=== PATIENT | male | born 1940 | race Caucasian/White ===

== ENCOUNTER → 2016-08-13 | Outpatient (CLI) | payer OTHER ==
[~2016-08-13] MED LIST: ACET-1256 PO; ASPEC81 PO; CLOP1TAB54 PO; CLX20 PO; FRS/40 PO; ISOS60TA2 PO; METO-551 PO; NTRGSL/4 SL; POTA-327 PO; ROSU20TA PO
[2016-08-13 17:24] LABS: HEMATOCRIT 47.2 % (42-52); MEAN CELL VOLUME 97.1 fL (80-100); MEAN CORPUSCULAR HEMOGLOBIN 32.9 pg (25-34); MEAN CORPUSCULAR HGB CONC 33.9 g/dl (32-36); MEAN PLATELET VOLUME 12.9 fL (7.4-10.4); PLATELET COUNT 144 K/uL (130-400); RED BLOOD COUNT 4.86 M/uL (4.7-6.1); WHITE BLOOD COUNT 9.91 K/uL (4.8-10.8)
[2016-08-13 17:43] LABS: ALT/SGPT 14 U/L (12-78); AST/SGOT 16 U/L (15-37); BLOOD UREA NITROGEN 22 mg/dl (7-18); BUN/CREATININE RATIO 14.5 (10-20); CALCIUM 9.9 mg/dl (8.5-10.1); CARBON DIOXIDE 28 mmol/L (21-32); CHLORIDE 103 mmol/L (98-107); GLUCOSE 104 mg/dl (70-99); POTASSIUM 3.9 mmol/L (3.5-5.1); SODIUM 139 mmol/L (136-145)
[2016-08-13 17:46] LABS: ALB/GLOB RATIO 0.8 (0.9-2); ALKALINE PHOSPHATASE 103 U/L (45-117); CHOLESTEROL 132 mg/dl (0-200); CHOLESTEROL/HDL RATIO 3.9; HDL CHOLESTEROL 34 mg/dl; LDL CHOLESTEROL CALCULATED 65 mg/dl; TRIGLYCERIDES 167 mg/dl (0-150); VERY LOW DENSITY LIPOPROT CALC 33 mg/dl
== END | disposition home or self-care (01) ==
LOC: C.LABBFT 12:37
PROVIDERS: ATTEND Internal Medicine
DX: E78.5 Hyperlipidemia, unspecified (principal)

== ENCOUNTER → 2017-02-19 | Outpatient (CLI) | payer OTHER ==
[2017-02-19 17:44] LABS: HEMATOCRIT 49.1 % (42-52); MEAN CORPUSCULAR HEMOGLOBIN 32.3 pg (25-34); MEAN CORPUSCULAR HGB CONC 32.6 g/dl (32-36); MEAN PLATELET VOLUME 12.9 fL (7.4-10.4); PLATELET COUNT 143 K/uL (130-400); RED BLOOD COUNT 4.96 M/uL (4.7-6.1); WHITE BLOOD COUNT 10.33 K/uL (4.8-10.8)
[2017-02-19 17:55] LABS: ALT/SGPT 18 U/L (12-78); BLOOD UREA NITROGEN 23 mg/dl (7-18); BUN/CREATININE RATIO 14.5 (10-20); CALCIUM 10.5 mg/dl (8.5-10.1); CARBON DIOXIDE 34 mmol/L (21-32); CHLORIDE 102 mmol/L (98-107); CHOLESTEROL 155 mg/dl (0-200); GLUCOSE 96 mg/dl (70-99); POTASSIUM 4.2 mmol/L (3.5-5.1); SODIUM 139 mmol/L (136-145); TRIGLYCERIDES 271 mg/dl (0-150); VERY LOW DENSITY LIPOPROT CALC 54 mg/dl
[2017-02-19 17:58] LABS: ALB/GLOB RATIO 0.9 (0.9-2); ALKALINE PHOSPHATASE 98 U/L (45-117); AST/SGOT 20 U/L (15-37); CHOLESTEROL/HDL RATIO 4.4; HDL CHOLESTEROL 35 mg/dl; LDL CHOLESTEROL CALCULATED 66 mg/dl
== END | disposition home or self-care (01) ==
LOC: C.LABBFT 13:38
PROVIDERS: ATTEND Internal Medicine
DX: I25.10 Atherosclerotic heart disease of native coronary artery without angina pectoris (principal)

== ENCOUNTER → 2017-03-23 | Outpatient (CLI) | payer OTHER ==
[2017-03-23 12:41] LABS: BLOOD UREA NITROGEN 23 mg/dl (7-18); BUN/CREATININE RATIO 15.6 (10-20); CALCIUM 10.4 mg/dl (8.5-10.1); CARBON DIOXIDE 30 mmol/L (21-32); CHLORIDE 103 mmol/L (98-107); GLUCOSE 96 mg/dl (70-99); POTASSIUM 3.7 mmol/L (3.5-5.1); SODIUM 138 mmol/L (136-145)
== END | disposition home or self-care (01) ==
LOC: C.LABBFT 10:14
PROVIDERS: ATTEND Internal Medicine
DX: N18.9 Chronic kidney disease, unspecified (principal)

== ENCOUNTER → 2017-09-02 | Outpatient (CLI) | payer OTHER ==
[2017-09-02 17:54] LABS: BASO % 0.6 %; BASO ABS # 0.06 K/uL (0-0.2); EOS % 3.8 %; HEMOGLOBIN 15.9 g/dL (14.0-18.0); IG# 0.03 K/uL (0.00-0.02); LYMPH % 20.5 %; LYMPH ABS # 2.13 K/uL (1.2-3.4); MEAN CELL VOLUME 98.8 fL (80-100); MEAN CORPUSCULAR HEMOGLOBIN 32.7 pg (25-34); MEAN CORPUSCULAR HGB CONC 33.1 g/dl (32-36); MEAN PLATELET VOLUME 12.5 fL (7.4-10.4); MONO % 10.6 %; NEUT % 64.2 %; NEUT ABS # 6.68 K/uL (1.4-6.5); PLATELET COUNT 167 K/uL (130-400); RED CELL DISTRIBUTION WIDTH CV 14.1 % (11.5-14.5); RED CELL DISTRIBUTION WIDTH SD 51.2 fL (36.4-46.3)
[2017-09-02 18:22] LABS: ALBUMIN 3.6 gm/dl (3.4-5.0); ALT/SGPT 18 U/L (12-78); AST/SGOT 18 U/L (15-37); BLOOD UREA NITROGEN 26 mg/dl (7-18); CALCIUM 10.6 mg/dl (8.5-10.1); CARBON DIOXIDE 28 mmol/L (21-32); CHOLESTEROL 159 mg/dl (0-200); CREATININE 1.52 mg/dl (0.60-1.40); GLUCOSE 99 mg/dl (70-99); POTASSIUM 4.7 mmol/L (3.5-5.1); SODIUM 135 mmol/L (136-145)
[2017-09-02 18:25] LABS: ALKALINE PHOSPHATASE 87 U/L (45-117); LDL CHOLESTEROL CALCULATED 76 mg/dl; TOTAL PROTEIN 7.7 gm/dl (6.4-8.2)
== END | disposition home or self-care (01) ==
LOC: C.LABBFT 13:31
PROVIDERS: ATTEND Internal Medicine
DX: I25.10 Atherosclerotic heart disease of native coronary artery without angina pectoris (principal)

== ENCOUNTER 2018-09-09 20:07 | Inpatient (IN) ==
[2018-09-09 20:52] LABS: Basophils # (auto) 0.05 K/uL (0-0.2); Basophils % (auto) 0.6 %; Eosinophils # (auto) 0.39 K/uL (0-0.5); Eosinophils % (auto) 4.4 %; Hematocrit (blood only) 44.4 % (42-52); Hemoglobin 14.8 g/dL (14.0-18.0); Immature Granulocytes # (auto) 0.02 K/uL (0.00-0.02); Immature Granulocytes % (auto) 0.2 %; Lymphocytes # (auto) 2.66 K/uL (1.2-3.4); Lymphocytes % (auto) 30.1 %; Mean Corpuscular Hgb Conc 33.3 g/dL (32-36); Mean Corpuscular Volume 98.2 fL (80-100); Mean Platelet Volume 11.4 fL (7.4-10.4); Monocytes # (auto) 0.65 K/uL (0.11-0.59); Monocytes % (auto) 7.4 %; Neutrophils # (auto) 5.06 K/uL (1.4-6.5); Neutrophils % (auto) 57.3 %; Platelet Count 142 K/uL (130-400); RDW Coefficient of Variation 15.1 % (11.5-14.5); RDW Standard Deviation 54.1 fL (36.4-46.3); Red Blood Count 4.52 M/uL (4.7-6.1); White Blood Count 8.83 K/uL (4.8-10.8)
[2018-09-09 20:57] LABS: Base Excess VBG 4.6 mEq/L; Oxygen Saturation VBG 64.8 %; pH VBG 7.4 (7.36-7.41)
[2018-09-09 21:03] LABS: INR 1.1 (0.9-1.1); Partial Thromboplastin Ratio 0.9; Partial Thromboplastin Time 24.8 Seconds (21.0-31.0); Prothrombin Time 10.8 Seconds (9.0-12.0)
[2018-09-09 21:08] LABS: Albumin Level 3.4 gm/dl (3.4-5.0); BUN Creatinine Ratio 18.2 (10-20); Blood Urea Nitrogen 32 mg/dl (7-18); Calcium 10.1 mg/dl (8.5-10.1); Carbon Dioxide 31 mmol/L (21-32); Chloride 105 mmol/L (98-107); Creatinine Clr Calc Pharmacy 38.2 ml/min; Est GFR (African American) 40.8; Est GFR (Non-African American) 35.2; Glucose 131 mg/dl (70-99); Magnesium 2.4 mg/dl (1.8-2.4); Potassium 4.1 mmol/L (3.5-5.1); Sodium 140 mmol/L (136-145)
[2018-09-09 21:11] LABS: Alanine Aminotransferase 18 U/L (12-78); Albumin Globulin Ratio 0.8 (0.9-2); Alkaline Phosphatase 86 U/L (45-117); Aspartate Aminotransferase 17 U/L (15-37); Bilirubin,Total 0.3 mg/dl (0.2-1); Globulin 4.1 gm/dl (2.5-4.0); Total Protein 7.5 gm/dl (6.4-8.2); Troponin I < 0.015 ng/ml (0-0.045)
--- NOTE | 2018-09-09 21:17 | CT Scan Report ---
CT SCAN OF THE BRAIN WITHOUT IV CONTRAST CLINICAL HISTORY: Strokelike symptoms. COMPARISON STUDY: CT of the brain dated 06/16/2018. TECHNIQUE: Unenhanced axial CT scan of the brain is performed from the vertex to the skull base. A do se lowering technique was utilized adhering to the principles of ALARA. CT DOSE: 537.48 mGy.cm FINDINGS: Brain parenchyma: There are age-related involutional changes noting advanced confluent subcortical a nd periventricular microangiopathic change. Chronic lacunar infarcts identified in the left caudate h ead and the right thalamus. There is no hemorrhage, mass effect, or evidence of acute territorial isc hemia by CT criteria. Ellison-white matter differentiation is preserved. No extra-axial fluid collection is seen. Ventricles, sulci, cisterns: Prominent secondary to involutional change. Intracranial vasculature: There is atherosclerotic calcification of the cavernous carotid and vertebr al arteries. Calvarium: The skeletal structures are osteopenic. No depressed coronal fracture is seen. Postoperati ve change is noted involving the facial bones. Sinuses and mastoids: The visualized paranasal sinuses are clear. The mastoid air cells are well pneu matized. Orbits: Chronic posttraumatic deformity and postoperative changes noted involving the right orbit. Th e bony orbits are otherwise grossly intact. IMPRESSION: Senescent changes as above with no hemorrhage, mass effect, or evidence of acute territor ial ischemia by CT criteria. Electronically signed by: Anjum Junior M.D. 09/09/2018 9:15 PM
--- NOTE | 2018-09-09 21:50 | XRay Report ---
SINGLE VIEW CHEST CLINICAL HISTORY: Transient ischemic attack. FINDINGS: An AP, portable, upright chest radiograph is compared to study dated 06/16/2018. Correlatio n is made with chest CT dated 05/19/2006. The examination is degraded by portable technique and patie nt rotation. A 3-lead cardiac pacemaker is unchanged in position and partially obscures the left mid chest. The patient is status post midline sternotomy. The heart is enlarged and there is atherosclero tic calcification of the thoracic aorta. The pulmonary vasculature is noncongested. Chronic interstit ial thickening is similar to previous. No airspace consolidation or large pleural effusion is identif ied. Bibasilar atelectasis is noted. No pneumothorax is seen. The skeletal structures are osteopenic. The bony thorax is grossly intact. A surgical clip is noted in the left neck. IMPRESSION: 1. Cardiomegaly and cardiac pacemaker. There is no radiographic evidence of congestive failure. 2. No airspace consolidation or pleural effusion is identified. Electronically signed by: Anjum Junior M.D. 09/09/2018 9:48 PM
[2018-09-09 22:14] LABS: Appearance Urine Clear (Clear); Bilirubin Urine Negative (Negative); Blood Urine Negative (Negative); Color Urine Yellow; Glucose Urine UA Negative (Negative); Ketones Urine Negative (Negative); Leukocyte Esterase Urine Negative (Negative); Nitrite Urine Negative (Negative); Protein Urine Negative (Negative); Specific Gravity Urine 1.017 (1.000-1.030); Urobilinogen Urine Negative (Negative)
[2018-09-09] MEDS ORDERED: ASPIRIN CHEW 324 MG PO STA (22:24)
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
--- NOTE | 2018-09-10 00:28 | Emergency Department Note ---
Entered by Yany Mederos acting as a scribe for History of Present Illness General Chief complaint: Stroke/CVA Symptoms Stated complaint: LOSING BALANCE, SLURRED WORDS, VISION ISSUES Time Seen by Provider: 09/09/18 20:25 Source: patient and family Mode of arrival: ambulatory Limitations: no limitations History of Present Illness Provider complaint: stroke-like symptoms Onset (ago): hour(s) (3.5) Location: head Pain Consistency: + other (episode) Maximum Pain Intensity: 10 Current Pain Intensity: 3 Quality: + other (stroke-like) Associated symptoms: + weakness The patient is a 78 year old male who presents to the Emergency Room with complaints of stroke-like symptoms that began about 3.5 hours ago. The family reports that they had difficulty waking the patient up from a nap at 1700 today. They state that once he finally woke up, the patient was slurring his words and complaining of vision issues as well as shoulder pain. They note that upon getti ng up, the patient was weak and almost fell but were able to grab him and avoid a fall. The patient reports that he currently takes a daily aspirin but denies any other blood thinning medication. He admits to being an everyday smoker but denies any alcohol use. The patient states that he has had multiple surgeries including heart, gallbladder, thyroid, head and etc. The family notes that the patient was baseline before falling asleep, which was at 1500. They also report that the patient appears much improved. Home Medications Home Medications Medication Instructions Recorded Confirmed Type citalopram 20 mg PO DAILY #0 10/30/09 09/09/18 History furosemide 40 mg PO BID #0 10/30/09 09/09/18 History potassium chloride 10 meq PO DAILY #0 10/30/09 09/09/18 History aspirin [Aspirin Low Dose] 81 mg PO DAILY #0 12/26/09 09/09/18 History acetaminophen 500 mg PO Q4H PRN #0 tab 12/07/11 09/09/18 History clopidogrel 75 mg PO DAILY #0 tab 12/07/11 09/09/18 History metoprolol tartrate [Lopressor] 50 mg PO BID #0 tab 12/07/11 09/09/18 History nitroglycerin [Nitrostat] 0.4 mg SUBLINGUAL DIRECTED PRN 10/06/16 03/14/19 History #100 tab rosuvastatin 20 mg PO QPM 30 Days #0 tab 04/03/16 09/09/18 History ipratropium-albuterol 2 puff INHALATION QID 06/16/18 09/09/18 History ranolazine 500 mg PO Q12 06/16/18 09/09/18 History Allergies Allergy/AdvReac Type Severity Reaction Status Date / Time adhesive Allergy Unknown TAPE Verified 09/09/18 21:15 ranitidine Allergy Unknown Unknown Verified 09/09/18 21:15 Past Med/Surg History Medical History COPD (chronic obstructive pulmonary disease) Cardiac pacemaker Chronic diastolic CHF (congestive heart failure) Chronic ischemic heart disease Depression GERD (gastroesophageal reflux disease) HLD (hyperlipidemia) HTN (hypertension) Hip fracture PAD (peripheral artery disease) Tobacco abuse Surgical History History of cholecystectomy History of surgery of head History of thyroidectomy Hx of CABG Family History Other No pertinent family history in first degree relatives Social History Preferred Language: Amharic Visual Impairment: No Limitations Beliefs That Will Affect Care: None Current Living Situation: Spouse and Family Current Living Situation Comment: lives w/ dtr while waiting for apartment at assisted living facility Feels Safe at Home: Yes Smoking Status: Current every day smoker Hx Alcohol Use: No Hx Substance Use: No Review of Systems See HPI for pertinent positives & negatives. and A total of 10 systems reviewed and were otherwise negative Physical Exam Vital Signs Vital Signs - 24 hr 09/09/18 20:17 09/09/18 21:19 09/09/18 23:19 Temperature 36.7 C Temperature Source Oral Sepsis Recent Fever Within 48 Hours No Sepsis New/Unexplained Change in Mental Status No Sepsis Action Taken by Nursing No Action Required Pulse Rate 76 Pulse Rate [Finger] 72 60 Pulse Rhythm Regular Pulse Strength Normal Respiratory Rate 17 18 18 Respiratory Effort / Characteristics Non-Labored Spontaneous Respiratory Depth Normal Respiratory Pattern Regular Blood Pressure 103/68 Blood Pressure [Right Arm] 126/77 139/90 Blood Pressure Mean 79 Blood Pressure Mean [Right Arm] 93 106 Blood Pressure Position Sitting Pulse Oximetry 96 96 96 Oxygen Delivery Method Room Air Room Air Room Air GENERAL: He is oriented to person, place, and time. He appears well-developed and well-nourished. He does not appear distressed. HENT: Exam performed. Head: Normocephalic and atraumatic. Right Ear: External ear normal. No mastoid tenderness. Left Ear: External ear normal. No mastoid tenderness. Mouth/Throat: The oropharynx is clear and moist. No trismus in the jaw. No dental abscesses or uvula swelling. No oropharyngeal exudate or tonsillar abscesses. EYES: Conjunctivae and EOM are normal. Pupils are equal, round, and reactive to light. Right eye exhibits no discharge. Left eye exhibits no discharge. No scleral icterus. NECK: Normal range of motion. Neck supple. No JVD present. No spinous process tenderness present. No carotid bruit present. No rigidity. No tracheal deviation and normal range of motion present. No Brudzinski's sign and no Kernig's sign noted. CV: Normal rate, regular rhythm, normal heart sounds and intact distal pulses. There is no peripheral edema. Palpable radial pulses bue. PULM/CHEST: Effort normal and breath sounds normal. No respiratory distress. No stridor. He has no wheezes. He has no rales. Chest Wall: He exhibits no tenderness. ABD: The abdomen is soft. Bowel sounds are normal. He has no distension. No mass is present. There is no tenderness. There is no rebound, no guarding, no Burton's sign and no tenderness at McBurney's point. Rovsig negative MUSC/SKEL: Normal range of motion. There is no peripheral edema, tenderness or deformity. LYMPH: No cervical adenopathy. NEURO: He is alert and oriented to person, place, and time. He has normal strength. No cranial nerve deficit or sensory deficit. Coordination and gait normal. GCS eye subscore is 4. GCS verbal subscore is 5. GCS motor subscore is 6. cerbellar tests wnl. [place] Stroke skill is 0. SKIN: Skin is warm and dry. He is not diaphoretic. PSYCH: He has a normal mood and affect. His behavior is normal. Judgment and thought content normal. Course 2025: Past medical records reviewed. The patient was evaluated in room C12A, and a complete history and physical examination were performed. Patient was seen immediately. No code stroke was called as family reports symptoms are improving, patient is out of window for TPA, and that NIH stroke scale is 0 at this time. 2225: Vital signs stable. The patient's neuro exam remains stable and NIH stroke still 0. The patient's family reports that the patient seems a lot better than when he was brought to the hospital. It is thought that the patient suffered a TIA. Aspirin will be given. The patient will be admitted to hospital. Labs and imaging within normal limits.I reviewed the patient's case with Dr. Art - [facility] Hospitalist. She will evaluate the patient for further management. Administered Medications Discontinued Medications Aspirin (Aspirin) 324 mg PO NOW STA Stop: 09/09/18 22:25 Last Admin: 09/09/18 22:27 Dose: 324 mg Documented by: [id number] Medical Decision Making Medical Records Attestation: I reviewed the patient's medical records. Home Medications Current Medication List: was personally reviewed by me Laboratory Data Attestation: I reviewed the patient's lab results. Result diagrams: 09/09/18 20:38 09/09/18 20:38 Lab Results 09/09/18 09/09/18 09/09/18 Range/Units 20:37 20:38 20:38 WBC 8.83 (4.8-10.8) K/uL RBC 4.52 L (4.7-6.1) M/uL Hgb 14.8 (14.0-18.0) g/dL Hct 44.4 (42-52) % MCV 98.2 (80-100) fL MCH 32.7 (25-34) pg MCHC 33.3 (32-36) g/dL RDW Std Deviation 54.1 H (36.4-46.3) fL RDW Coeff of Sonia 15.1 H (11.5-14.5) % Plt Count 142 (130-400) K/uL MPV 11.4 H (7.4-10.4) fL Immature Gran % (Auto) 0.2 % Neut % (Auto) 57.3 % Lymph % (Auto) 30.1 % [place] % (Auto) 7.4 % Eos % (Auto) 4.4 % Baso % (Auto) 0.6 % Immature Gran # (Auto) 0.02 (0.00-0.02) K/uL Neut # (Auto) 5.06 (1.4-6.5) K/uL Lymph # (Auto) 2.66 (1.2-3.4) K/uL [place] # (Auto) 0.65 H (0.11-0.59) K/uL Eos # (Auto) 0.39 (0-0.5) K/uL Baso # (Auto) 0.05 (0-0.2) K/uL PT 10.8 (9.0-12.0) Seconds INR 1.1 (0.9-1.1) APTT 24.8 (21.0-31.0) Seconds PTT Ratio 0.9 VBG pH (7.36-7.41) VBG pCO2 (38-50) mmHg VBG pO2 mmHg VBG HCO3 mmol/L VBG O2 Saturation % VBG Base Excess mEq/L Barometric Pressure mm/Hg Sodium (136-145) mmol/L Potassium (3.5-5.1) mmol/L Chloride (98-107) mmol/L Carbon Dioxide (21-32) mmol/L Anion Gap (3-11) BUN (7-18) mg/dl Creatinine (0.6-1.4) mg/dl Est Cr Clr Drug Dosing ml/min Est GFR ( Amer) Est GFR (Non-Af Amer) BUN/Creatinine Ratio (10-20) Glucose (70-99) mg/dl POC Glucose 150 H (70-99) Calcium (8.5-10.1) mg/dl Magnesium (1.8-2.4) mg/dl Total Bilirubin (0.2-1) mg/dl AST (15-37) U/L ALT (12-78) U/L Alkaline Phosphatase (45-117) U/L Troponin I (0-0.045) ng/ml Total Protein (6.4-8.2) gm/dl Albumin (3.4-5.0) gm/dl Globulin (2.5-4.0) gm/dl Albumin/Globulin Ratio (0.9-2) Urine Color Urine Appearance (Clear) Urine pH (4.5-7.5) Ur Specific [place] (1.000-1.030) Urine Protein (Negative) Urine Glucose (UA) (Negative) Urine Ketones (Negative) Urine Blood (Negative) Urine Nitrite (Negative) Urine Bilirubin (Negative) Urine Urobilinogen (Negative) Ur Leukocyte Esterase (Negative) 09/09/18 09/09/18 09/09/18 Range/Units 20:38 20:43 21:30 WBC (4.8-10.8) K/uL RBC (4.7-6.1) M/uL Hgb (14.0-18.0) g/dL Hct (42-52) % MCV (80-100) fL MCH (25-34) pg MCHC (32-36) g/dL RDW Std Deviation (36.4-46.3) fL RDW Coeff of Sonia (11.5-14.5) % Plt Count (130-400) K/uL MPV (7.4-10.4) fL Immature Gran % (Auto) % Neut % (Auto) % Lymph % (Auto) % [place] % (Auto) % Eos % (Auto) % Baso % (Auto) % Immature Gran # (Auto) (0.00-0.02) K/uL Neut # (Auto) (1.4-6.5) K/uL Lymph # (Auto) (1.2-3.4) K/uL [place] # (Auto) (0.11-0.59) K/uL Eos # (Auto) (0-0.5) K/uL Baso # (Auto) (0-0.2) K/uL PT (9.0-12.0) Seconds INR (0.9-1.1) APTT (21.0-31.0) Seconds PTT Ratio VBG pH 7.40 (7.36-7.41) VBG pCO2 50 (38-50) mmHg VBG pO2 31 mmHg VBG HCO3 31 mmol/L VBG O2 Saturation 64.8 % VBG Base Excess 4.6 mEq/L Barometric Pressure 728.6 mm/Hg Sodium 140 (136-145) mmol/L Potassium 4.1 (3.5-5.1) mmol/L Chloride 105 (98-107) mmol/L Carbon Dioxide 31 (21-32) mmol/L Anion Gap 4.0 (3-11) BUN 32 H (7-18) mg/dl Creatinine 1.78 H (0.6-1.4) mg/dl Est Cr Clr Drug Dosing 38.2 ml/min Est GFR ( Amer) 40.8 Est GFR (Non-Af Amer) 35.2 BUN/Creatinine Ratio 18.2 (10-20) Glucose 131 H (70-99) mg/dl POC Glucose (70-99) Calcium 10.1 (8.5-10.1) mg/dl Magnesium 2.4 (1.8-2.4) mg/dl Total Bilirubin 0.3 (0.2-1) mg/dl AST 17 (15-37) U/L ALT 18 (12-78) U/L Alkaline Phosphatase 86 (45-117) U/L Troponin I < 0.015 (0-0.045) ng/ml Total Protein 7.5 (6.4-8.2) gm/dl Albumin 3.4 (3.4-5.0) gm/dl Globulin 4.1 H (2.5-4.0) gm/dl Albumin/Globulin Ratio 0.8 L (0.9-2) Urine Color Yellow Urine Appearance Clear (Clear) Urine pH 7.0 (4.5-7.5) Ur Specific [place] 1.017 (1.000-1.030) Urine Protein Negative (Negative) Urine Glucose (UA) Negative (Negative) Urine Ketones Negative (Negative) Urine Blood Negative (Negative) Urine Nitrite Negative (Negative) Urine Bilirubin Negative (Negative) Urine Urobilinogen Negative (Negative) Ur Leukocyte Esterase Negative (Negative) Imaging Data Radiologist's Impression: Radiology results as stated below per my review and the radiologist's interpretation: SINGLE VIEW CHEST CLINICAL HISTORY: Transient ischemic attack. FINDINGS: An AP, portable, upright chest radiograph is compared to study dated 06/16/2018. Correlation is made with chest CT dated 05/19/2006. The examination is degraded by portable technique and patient rotation. A 3-lead cardiac pacemaker is unchanged in position and partially obscures the left mid chest. The patient is status post midline sternotomy. The heart is enlarged and there is atherosclerotic calcification of the thoracic aorta. The pulmonary vasculature is noncongested. Chronic interstitial thickening is similar to previous. No airspace consolidation or large pleural effusion is identified. Bibasilar atelectasis is noted. No pneumothorax is seen. The skeletal structures are osteopenic. The bony thorax is grossly intact. A surgical clip is noted in the left neck. IMPRESSION: 1. Cardiomegaly and cardiac pacemaker. There is no radiographic evidence of congestive failure. 2. No airspace consolidation or pleural effusion is identified. Electronically signed by: Anjum Junior M.D. 09/09/2018 9:[address] SCAN OF THE BRAIN WITHOUT IV CONTRAST CLINICAL HISTORY: Strokelike symptoms. COMPARISON STUDY: CT of the brain dated 06/16/2018. TECHNIQUE: Unenhanced axial CT scan of the brain is performed from the vertex to the skull base. A dose lowering technique was utilized adhering to the principle s of ALARA. CT DOSE: 537.48 mGy.cm FINDINGS: Brain parenchyma: There are age-related involutional changes noting advanced confluent subcortical and periventricular microangiopathic change. Chronic lacunar infarcts identified in the left caudate head and the right thalamus. There is no hemorrhage, mass effect, or evidence of acute territorial ischemia by CT criteria. Ellison-white matter differentiation is preserved. No extra-axial fluid collection is seen. Ventricles, sulci, cisterns: Prominent secondary to involutional change. Intracranial vasculature: There is atherosclerotic calcification of the cavernous carotid and vertebral arteries. Calvarium: The skeletal structures are osteopenic. No depressed coronal fracture is seen. Postoperative change is noted involving the facial bones. Sinuses and mastoids: The visualized paranasal sinuses are clear. The mastoid air cells are well pneumatized. Orbits: Chronic posttraumatic deformity and postoperative changes noted involving the right orbit. The bony orbits are otherwise grossly intact. IMPRESSION: Senescent changes as above with no hemorrhage, mass effect, or evidence of acute territorial ischemia by CT criteria. Electronically signed by: Anjum Junior M.D. 09/09/2018 9:15 PM Blood Pressure Blood Pressure Findings: Normal blood pressure Blood Pressure Disposition: further management by hospitalist [facility] Narrative 2025: Past medical records reviewed. The patient was evaluated in room C12A, and a complete history and physical examination were performed. Patient was seen immediately. No code stroke was called as family reports symptoms are improving, patient is out of window for TPA, and that NIH stroke scale is 0 at this time. 2225: Vital signs stable. The patient's neuro exam remains stable and NIH stroke still 0. The patient's family reports that the patient seems a lot better than when he was brought to the hospital. It is thought that the patient suffered a TIA. Aspirin will be given. The patient will be admitted to hospital. Labs and imaging within normal limits.I reviewed the patient's case with Dr. Art - [facility] Hospitalist. She will evaluate the patient for further management. Impression & Plan TIA (transient ischemic attack) Discharge Plan Visit Data Chief Complaint: Stroke/CVA Symptoms Stated Complaint: LOSING BALANCE, SLURRED WORDS, VISION ISSUES ED Provider: Mookie Cobian Discharge Problem: TIA (transient ischemic attack) Patient Disposition: Being Evaluated by Hospitalist Forms Stand Alone Forms: [facility] Prescriptions Prescriptions: No Action potassium chloride 10 mEq Tablet Extended Release 10 meq PO DAILY Qty: 0 RF: 0 citalopram 20 mg Tablet 20 mg PO DAILY Qty: 0 RF: 0 furosemide 20 mg Tablet 40 mg PO BID Qty: 0 RF: 0 aspirin [Aspirin Low Dose] 81 mg Tablet,Delayed Release (Dr/Ec) 81 mg PO DAILY Qty: 0 RF: 0 clopidogrel 75 mg Tablet 75 mg PO DAILY Qty: 0 RF: 0 acetaminophen 500 mg Tablet 500 mg PO Q4H PRN (Reason: Pain) Qty: 0 RF: 0 metoprolol tartrate [Lopressor] 50 mg Tablet 50 mg PO BID Qty: 0 RF: 0 nitroglycerin [Nitrostat] 0.4 mg Tablet, Sublingual 0.4 mg Sublingual DIRECTED PRN (Reason: Chest Pain) Qty: 100 RF: 3 rosuvastatin 20 mg Tablet 20 mg PO QPM 30 Days Qty: 0 RF: 5 ranolazine 500 mg tablet extended release 12 hr 500 mg PO Q12 RF: 0 ipratropium-albuterol 20-100 mcg/actuation mist 2 puff Inhalation QID RF: 0 Referrals Referrals: Ernesto Page III, MD [Primary Care Provider] - The scribe's documentation has been prepared under my direction and personally reviewed by me in its entirety. I confirm that the note above accurately reflects all work, treatment, procedures, and medical decision making performed by me.
[2018-09-10] MEDS ORDERED: ACETAMINOPHEN 500 MG TAB PO PRN (01:07)
[2018-09-10 03:13] LABS: Phosphorus 2.3 mg/dl (2.5-4.9)
[2018-09-10 06:43] LABS: Basophils # (auto) 0.04 K/uL (0-0.2); Basophils % (auto) 0.4 %; Eosinophils # (auto) 0.43 K/uL (0-0.5); Eosinophils % (auto) 4.8 %; Hematocrit (blood only) 41.1 % (42-52); Hemoglobin 13.5 g/dL (14.0-18.0); Immature Granulocytes # (auto) 0.02 K/uL (0.00-0.02); Immature Granulocytes % (auto) 0.2 %; Lymphocytes # (auto) 2.87 K/uL (1.2-3.4); Lymphocytes % (auto) 32.1 %; Mean Corpuscular Hgb Conc 32.8 g/dL (32-36); Mean Corpuscular Volume 98.3 fL (80-100); Monocytes # (auto) 1.04 K/uL (0.11-0.59); Monocytes % (auto) 11.6 %; Neutrophils # (auto) 4.53 K/uL (1.4-6.5); Neutrophils % (auto) 50.9 %; Platelet Count 133 K/uL (130-400); RDW Coefficient of Variation 15.5 % (11.5-14.5); RDW Standard Deviation 55.7 fL (36.4-46.3); Red Blood Count 4.18 M/uL (4.7-6.1); White Blood Count 8.93 K/uL (4.8-10.8)
--- NOTE | 2018-09-10 06:51 | Ultrasound Report ---
CAROTID ARTERY ULTRASOUND CLINICAL HISTORY: TIA COMPARISON STUDY: Carotid ultrasound December 08, 2011. TECHNIQUE: Real-time, grayscale, and color Doppler sonography of the carotid and vertebral arteries w as performed. Images were viewed in the transverse and longitudinal planes. FINDINGS: There is moderate atherosclerotic plaque present within the bilateral common carotid carotid arteries , greater on the right. There is mild atherosclerotic plaque within the proximal bilateral internal c arotid arteries. Velocity measurements are listed below. COMMON CAROTID PEAK SYSTOLIC VELOCITY (CM/S): RIGHT 64 LEFT 67 ICA PEAK SYSTOLIC VELOCITY (CM/S): RIGHT 60 LEFT 68 Systolic ratios between the internal to common carotid arteries are normal. Antegrade flow is seen in the vertebral arteries. The external carotid arteries are patent. Blood pressure in the right arm measured 117/79. Blood pressure in the left arm measured 128/77. IMPRESSION: 1. No evidence of a hemodynamically significant stenosis. 2. Moderate atherosclerotic plaque within the bilateral common carotid arteries. Mild atherosclerotic plaque within the proximal bilateral internal carotid arteries. Electronically signed by: Roger Garcia M.D. 09/10/2018 6:50 AM
[2018-09-10 07:20] LABS: BUN Creatinine Ratio 20.7 (10-20); Calcium 9.6 mg/dl (8.5-10.1); Creatinine Clr Calc Pharmacy 41.8 ml/min; Est GFR (African American) 45.4; Est GFR (Non-African American) 39.2; Potassium 3.7 mmol/L (3.5-5.1)
[2018-09-10 08:14] LABS: Estimated Average Glucose 120 mg/dl; Hemoglobin A1C 5.8 % (4.5-5.6)
[2018-09-10] MEDS: IPRATROPIUM BROMIDE/ALBUTEROL respimat INH INH SCH ×4 (08:26→21:39)
[2018-09-10] MEDS: ASPIRIN 81 MG ECTAB PO SCH (08:26)
[2018-09-10] MEDS: METOPROLOL TARTRATE 50 MG TAB PO SCH ×2 (08:27→21:40)
[2018-09-10] MEDS: CITALOPRAM 20 MG TAB PO SCH (08:27)
[2018-09-10] MEDS: RANOLAZINE 500 MG ER TAB PO SCH ×2 (08:27→21:40)
[2018-09-10] MEDS: FUROSEMIDE 40 MG TAB PO SCH ×2 (08:27→17:14)
[2018-09-10] MEDS: CLOPIDOGREL BISULFATE 75 MG TAB PO SCH (08:27)
[2018-09-10] MEDS: POTASSIUM CHLORIDE 10 MEQ TABCR PO SCH (08:27)
[2018-09-10] MEDS ORDERED: OPTIRAY 320 125ml IV PRN (09:29)
--- NOTE | 2018-09-10 09:41 | CT Scan Report ---
CT angio head w con CLINICAL HISTORY: 78 years-old Male presenting with TIA. TECHNIQUE: Multidetector CT angiography of the head was performed after the administration of intrave nous contrast. 3-D volumetric and/or maximum intensity projection (MIP) images were subsequently el nstructed for review. IV contrast: 120 mL of Optiray 320. One or more dose lowering techniques were u sed consistent with the principles of ALARA (as low as reasonably achievable), including automatic ex posure control, mA or kV adjustment to individual patient size, and/or use of iterative reconstructio n. COMPARISON: Noncontrast CT head from 09/09/2018. CT DOSE (mGy.cm): The estimated cumulative dose is 126.38 mGy.cm. FINDINGS: French Folder topogram: The patient is edentulous. Left subclavian implanted cardiac device with multiple omaira ds. Anterior circulation: Atherosclerosis of the cavernous segments of the internal carotid arteries. Int racranial portions of the internal carotid arteries patent to the level of the termini. Anterior cere bral arteries patent. Middle cerebral arteries patent. Anterior communicating artery patent. Posterior circulation: Right dominant vertebral artery. Intradural portions of the vertebral arteries patent. Posterior inferior cerebellar arteries patent. Basilar artery patent. Anterior inferior cere bellar arteries poorly visualized. Superior cerebellar arteries patent. Posterior cerebral arteries p atent. Right posterior communicating artery patent. Left P-comm patent though hypoplastic. Dural venous sinuses: Patent. Other: Age-related volume loss and periventricular hypoattenuation likely indicative of chronic small vessel ischemic change. Plate and screw fixation hardware in the right periorbital, nasal, and bilat eral premaxillary regions. IMPRESSION: 1. No evidence of aneurysm, focal vessel occlusion, or significant stenosis of the intracranial jaquelin bere. Electronically signed by: Magnus Segovia M.D. 09/10/2018 9:40 AM
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
[2018-09-10] MEDS ORDERED: ROSUVASTATIN CALCIUM 20 MG TAB PO SCH (21:00)
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
[2018-09-11] MEDS: IPRATROPIUM BROMIDE/ALBUTEROL respimat INH INH SCH ×3 (08:25→17:35)
[2018-09-11] MEDS: CLOPIDOGREL BISULFATE 75 MG TAB PO SCH (08:25)
[2018-09-11] MEDS: CITALOPRAM 20 MG TAB PO SCH (08:25)
[2018-09-11] MEDS: FUROSEMIDE 40 MG TAB PO SCH ×2 (08:25→17:35)
[2018-09-11] MEDS: ASPIRIN 81 MG ECTAB PO SCH (08:26)
[2018-09-11] MEDS: RANOLAZINE 500 MG ER TAB PO SCH (08:26)
[2018-09-11] MEDS: METOPROLOL TARTRATE 50 MG TAB PO SCH (08:26)
[2018-09-11] MEDS: POTASSIUM CHLORIDE 10 MEQ TABCR PO SCH (08:26)
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
== END 2018-09-11 19:28 | disposition home or self-care (01) | DRG 69 ==
LOC: ED 20:07 → SUATTDRO 23:37 → 2W 23:37
DX: I11.0 Hypertensive heart disease with heart failure; K21.9 Gastro-esophageal reflux disease without esophagitis; F17.200 Nicotine dependence, unspecified, uncomplicated; Z79.02 Long term (current) use of antithrombotics/antiplatelets; Z95.1 Presence of aortocoronary bypass graft; T14.90XS Injury, unspecified, sequela; G45.9 Transient cerebral ischemic attack, unspecified; H49.21 Sixth [abducent] nerve palsy, right eye; I73.9 Peripheral vascular disease, unspecified; Z79.82 Long term (current) use of aspirin; I25.10 Atherosclerotic heart disease of native coronary artery without angina pectoris; E78.5 Hyperlipidemia, unspecified; R29.700 NIHSS score 0; Z66 Do not resuscitate; Z79.899 Other long term (current) drug therapy; R47.81 Slurred speech; V89.2XXS Person injured in unspecified motor-vehicle accident, traffic, sequela; Z91.048 Other nonmedicinal substance allergy status; J44.9 Chronic obstructive pulmonary disease, unspecified; R53.1 Weakness; Z88.8 Allergy status to other drugs, medicaments and biological substances; I50.32 Chronic diastolic (congestive) heart failure

== ENCOUNTER 2019-12-14 09:27 | Observation (INO) ==
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
[2019-12-14] MEDS ORDERED: SODIUM CHLORIDE 0.9% 1000ML 1,000 ML IV SCH (10:00)
--- NOTE | 2019-12-14 10:08 | CT Scan Report ---
CT head/brain wo con CT DOSE: 729.78 mGycm HISTORY: Mental status change Stroke evaluation TECHNIQUE: Multiaxial CT images of the head were performed without the use of intravenous contrast. A dose lowering technique was utilized adhering to the principles of ALARA. Comparison: 09/10/2018 Findings: The paranasal sinuses and mastoid air cells are clear. Postoperative changes involving the right orbit and nasal bone region. Findings consistent with age-related atrophy and considerable chronic small vessel change. No evidence for acute intracranial hemorrhage or midline shift. Impression: Chronic, postoperative, and age-related change. No acute intracranial abnormality. ACT 112: Negative or not required by law. The above report was generated using voice recognition software. It may contain grammatical, syntax or spelling errors. Electronically signed by: Calos Whyte M.D. 12/14/2019 10:07 AM
[2019-12-14 10:29] LABS: Basophils # (auto) 0.05 K/uL (0-0.2); Basophils % (auto) 0.5 %; Eosinophils # (auto) 0.27 K/uL (0-0.5); Eosinophils % (auto) 2.8 %; Hematocrit (blood only) 45.4 % (42-52); Hemoglobin 14.9 g/dL (14.0-18.0); Immature Granulocytes # (auto) 0.06 K/uL (0.00-0.02); Immature Granulocytes % (auto) 0.6 %; Lymphocytes # (auto) 1.96 K/uL (1.2-3.4); Mean Corpuscular Hemoglobin 33.2 pg (25-34); Mean Corpuscular Hgb Conc 32.8 g/dL (32-36); Mean Corpuscular Volume 101.1 fL (80-100); Mean Platelet Volume 12.3 fL (7.4-10.4); Monocytes # (auto) 0.73 K/uL (0.11-0.59); Monocytes % (auto) 7.4 %; Neutrophils # (auto) 6.74 K/uL (1.4-6.5); Neutrophils % (auto) 68.7 %; Platelet Count 137 K/uL (130-400); RDW Standard Deviation 54.8 fL (36.4-46.3); Red Blood Count 4.49 M/uL (4.7-6.1); White Blood Count 9.81 K/uL (4.8-10.8)
--- NOTE | 2019-12-14 10:42 | XRay Report ---
XR chest 1V portable CLINICAL HISTORY: cva mental status change COMPARISON STUDY: 09/09/2018 FINDINGS: Mild stable cardiomegaly. Lungs are clear. Minimal chronic interstitial change left base. Permanent bipolar cardiac pacemaker with leads in good position. IMPRESSION: No acute process. ACT 112: Negative or not required by law. The above report was generated using voice recognition software. It may contain grammatical, syntax or spelling errors. Electronically signed by: Calos Whyte M.D. 12/14/2019 10:40 AM
[2019-12-14 10:46] LABS: INR 1.1 (0.9-1.1); Partial Thromboplastin Time 26.6 Seconds (21.0-31.0); Prothrombin Time 11.2 Seconds (9.0-12.0)
[2019-12-14 10:47] LABS: Albumin Level 3.3 gm/dl (3.4-5.0); BUN Creatinine Ratio 11.7 (10-20); Calcium 10.9 mg/dl (8.5-10.1); Creatinine Clr Calc Pharmacy 34.1 ml/min; Est GFR (African American) 35.7; Est GFR (Non-African American) 30.8; Magnesium 2.5 mg/dl (1.8-2.4); Potassium 4.3 mmol/L (3.5-5.1)
[2019-12-14 10:52] LABS: Albumin Globulin Ratio 0.8 (0.9-2); Bilirubin,Total 0.6 mg/dl (0.2-1); Globulin 4.1 gm/dl (2.5-4.0); Total Protein 7.4 gm/dl (6.4-8.2); Troponin I 0.019 ng/ml (0-0.045)
--- NOTE | 2019-12-14 12:32 | XRay Report ---
XR femur RT 2V routine CLINICAL HISTORY: r leg pain pain COMPARISON: None DISCUSSION: Prior right hip pinning procedure. Bony alignment is anatomic. No acute bony abnormality. The cortical cortical margins are intact. Ther e is no evidence for soft tissue swelling. IMPRESSION: No acute process post right hip pinning. ACT 112: Negative or not required by law. The above report was generated using voice recognition software. It may contain grammatical, syntax or spelling errors. Electronically signed by: Calos Whyte M.D. 12/14/2019 12:30 PM
--- NOTE | 2019-12-14 12:33 | XRay Report ---
XR pelvis 1-2V routine CLINICAL HISTORY: r leg weak COMPARISON: None. DISCUSSION: Moderate generalized degenerative change. Prior right hip pinning procedure. No evidence for fracture or acetabular protrusion. There is no evidence for soft tissue swelling. IMPRESSION: Degenerative and postoperative change. No acute process. ACT 112: Negative or not required by law. The above report was generated using voice recognition software. It may contain grammatical, syntax or spelling errors. Electronically signed by: Calos Whyte M.D. 12/14/2019 12:32 PM
[2019-12-14 13:35] LABS: Appearance Urine Clear (Clear); Bacteria Urine Automated Negative (Negative); Bilirubin Urine Negative (Negative); Blood Urine Negative (Negative); Color Urine Dark Yellow; Glucose Urine UA Negative (Negative); Ketones Urine Negative (Negative); Leukocyte Esterase Urine Negative (Negative); Nitrite Urine Negative (Negative); Protein Urine 1+ (Negative); RBC Urine Automated 0-4 /hpf (0-4); Specific Gravity Urine 1.025 (1.000-1.030); Urobilinogen Urine Negative (Negative); pH Urine 6.5 (4.5-7.5)
[2019-12-14] MEDS ORDERED: METOPROLOL TARTRATE 1 MG/ML VIAL IV STA (14:16)
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
--- NOTE | 2019-12-14 15:30 | Electrocardiogram Report ---
Test Reason : Blood Pressure : / mmHG Vent. Rate : 060 BPM Atrial Rate : 060 BPM P-R Int : 336 ms QRS Dur : 192 ms QT Int : 480 ms P-R-T Axes : -25 -36 129 degrees QTc Int : 480 ms Atrial-paced rhythm with prolonged AV conduction Left axis deviation Left bundle branch block Abnormal ECG When compared with ECG of 09-SEP-2018 20:41, QRS duration has increased Confirmed by Chuck Saeed ([id number]) on 12/14/2019 3:29:40 PM Referred By: REFERRED SELF Confirmed By:Gerardo Saeed
[2019-12-14 15:37] LABS: Folate (Folic Acid) 7.43 ng/ml (>5.38)
--- NOTE | 2019-12-14 16:00 | CT Scan Report ---
CT lumbar spine wo con CT DOSE: 739.81 mGycm HISTORY: Pain. Neuropathy. B/L LE Weakness TECHNIQUE: Multiaxial CT images of the lumbar spine were performed and reformatted in the sagittal an d coronal plane without the use of contrast. A dose lowering technique was utilized adhering to the principles of ALARA. COMPARISON: None. FINDINGS: Vertebral body stature is normal. Mild degenerative disc changes throughout is present. Sig nificant degenerative disc changes noted L5-S1. No evidence for compression deformity. No major compromise of the spinal canal. 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 This is not speci fically imaged on this study. IMPRESSION: 1. Degenerative disc change of the lumbar spine considered most prominent at L5-S1. 2. No significant compromise of the spinal canal. 3. 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 A CT evaluation of the abdomen and pelvis to evaluate the arterial structures is suggested. ACT 112: Negative or not required by law. The above report was generated using voice recognition software. It may contain grammatical, syntax or spelling errors. Electronically signed by: Calos Whyte M.D. 12/14/2019 3:59 PM
[2019-12-14] MEDS ORDERED: ALUMINUM/MAGNESIUM SUSP 30 ML UDC PO PRN (16:04)
[2019-12-14] MEDS ORDERED: NITROGLYCERIN SL 0.4 MG/TAB TAB SL PRN (16:04)
[2019-12-14] MEDS ORDERED: MAGNESIUM HYDROXIDE SUSP 30 ML UDC PO PRN (16:04)
[2019-12-14] MEDS: ASPIRIN 81 MG ECTAB PO SCH (17:22)
[2019-12-14] MEDS: CLOPIDOGREL BISULFATE 75 MG TAB PO SCH (17:22)
[2019-12-14] MEDS: CITALOPRAM 20 MG TAB PO SCH (17:22)
[2019-12-14] MEDS: POTASSIUM CHLORIDE 10 MEQ TABCR PO SCH (17:23)
[2019-12-14] MEDS: METOPROLOL TARTRATE 50 MG TAB PO SCH (17:23)
[2019-12-14] MEDS: ROSUVASTATIN CALCIUM 20 MG TAB PO SCH (17:23)
[2019-12-14] MEDS: FUROSEMIDE 40 MG TAB PO SCH (17:23)
[2019-12-14] MEDS: ACETAMINOPHEN 500 MG TAB PO PRN (17:24)
[2019-12-14] MEDS: ENOXAPARIN INJ 30 MG/0.3 ML SYR SQ SCH (20:23)
[2019-12-14] MEDS: RANOLAZINE 500 MG ER TAB PO SCH (20:24)
[2019-12-14] MEDS: IPRATROPIUM BROMIDE HFA INHALER INH SCH (20:38)
[2019-12-14] MEDS: ALBUTEROL HFA 8 GM INHALER INH SCH (20:38)
[2019-12-15 06:38] LABS: Basophils # (auto) 0.06 K/uL (0-0.2); Basophils % (auto) 0.7 %; Eosinophils # (auto) 0.38 K/uL (0-0.5); Eosinophils % (auto) 4.4 %; Hematocrit (blood only) 44.5 % (42-52); Hemoglobin 14.1 g/dL (14.0-18.0); Immature Granulocytes # (auto) 0.02 K/uL (0.00-0.02); Immature Granulocytes % (auto) 0.2 %; Lymphocytes # (auto) 2.64 K/uL (1.2-3.4); Lymphocytes % (auto) 30.3 %; Mean Corpuscular Hemoglobin 32.8 pg (25-34); Mean Corpuscular Hgb Conc 31.7 g/dL (32-36); Mean Corpuscular Volume 103.5 fL (80-100); Mean Platelet Volume 12.5 fL (7.4-10.4); Monocytes # (auto) 0.92 K/uL (0.11-0.59); Monocytes % (auto) 10.6 %; Neutrophils # (auto) 4.68 K/uL (1.4-6.5); Neutrophils % (auto) 53.8 %; Platelet Count 132 K/uL (130-400); RDW Coefficient of Variation 15.1 % (11.5-14.5); RDW Standard Deviation 57.3 fL (36.4-46.3)
[2019-12-15 07:07] LABS: BUN Creatinine Ratio 13.4 (10-20); Calcium 10.8 mg/dl (8.5-10.1); Creatinine Clr Calc Pharmacy 37.5 ml/min; Est GFR (African American) 40.3; Est GFR (Non-African American) 34.8; Potassium 3.8 mmol/L (3.5-5.1)
[2019-12-15 07:10] LABS: Albumin Globulin Ratio 0.8 (0.9-2); Bilirubin,Total 0.4 mg/dl (0.2-1); Globulin 3.7 gm/dl (2.5-4.0); Total Protein 6.7 gm/dl (6.4-8.2)
[2019-12-15] MEDS: IPRATROPIUM BROMIDE HFA INHALER INH SCH ×2 (07:24→19:16)
[2019-12-15] MEDS: ALBUTEROL HFA 8 GM INHALER INH SCH ×2 (07:25→19:15)
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
[2019-12-15] MEDS: CITALOPRAM 20 MG TAB PO SCH (09:08)
[2019-12-15] MEDS: ASPIRIN 81 MG ECTAB PO SCH (09:08)
[2019-12-15] MEDS: CLOPIDOGREL BISULFATE 75 MG TAB PO SCH (09:08)
[2019-12-15] MEDS: POTASSIUM CHLORIDE 10 MEQ TABCR PO SCH (09:08)
[2019-12-15] MEDS: ROSUVASTATIN CALCIUM 20 MG TAB PO SCH (09:09)
[2019-12-15] MEDS: FUROSEMIDE 40 MG TAB PO SCH ×2 (09:09→16:40)
[2019-12-15] MEDS: METOPROLOL TARTRATE 50 MG TAB PO SCH ×2 (09:09→20:30)
[2019-12-15] MEDS: RANOLAZINE 500 MG ER TAB PO SCH ×2 (09:10→20:32)
--- NOTE | 2019-12-15 10:56 | Hospitalist Progress Note ---
Date of Service December 15, 2019 Assessment & Plan (1) Weakness: * Obs PCU with telemetry -- has been atrial paced in the 60s. ? if deconditioning vs back vs lyme etiology. UA negative for infection. CXR negative. TSH 1.120. MCV elevated at 103.5 --> B12 344, Folate 7.43, wnl * Neurology consult -- no focal neurological deficits at this time, however he does have absent ankle reflexes and mild polyneuropathy that could contribute to a sensory ataxia -- outpatient EMG recommended * Troponin elevated to 0.066 from 0.019 on admission ECHO pending to assess cardiac function given elevated troponin as ordered by overnight resident --> changes likely age related per discussion with cardiology Cardiology consult -- appreciate recommendations. no further cardiac work- up at this time * PT/OT pending -- continue while inpatient * CT lumbar spine with degenerative changes of lumbar spine, most significant at L5-S1 without compromise of spinal canal. Will review imaging tomorrow with orthopedic to see if intervention warranted at this time --> Of note, aneurysmal dilation of abdominal aorta and iliac vasc noted --> Given history of CKD, will obtain US AAA initially, but may need CT angio pending results US AAA with fusiform AAA 4.9cm -- will need outpatient follow up follow up w [facility]. 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 No hx of Lyme in the past * Lyme Positive IgG, Equivocal IgM, others pending --> Will treat with doxy 100mg BID (3) Hypertension: * Chronic. BP controlled, currently 126/79 * Continue home metoprolol 50mg BID, Lasix 40mg BID * Continue to monitor (4) CAD (coronary artery disease): * multivessel * s/p dual chamber pacemaker. Pacer interrogation pending * Continue ASA, Plavix, Crestor, ranexa (5) Hyperlipidemia: * Chronic. Continue home crestor (6) Diastolic CHF: * ECHO pending as above * Continue home lasix, metoprolol (7) Presence of cardiac pacemaker: * Noted (8) Hypercalcemia: * Hx of elevated levels * Ca 10.9 with corrected Ca 11.6 * Follow (9) Depression: * and anxiety -- continue home citalopram (10) Chronic renal insufficiency: * Cr appears slightly above baseline at 1.98 on admission. Gentle IVF, now discontinued * Cr improved to 1.79 * Monitor for s/sx volume overload (11) Chronic ischemic heart disease: * See above. Continue home medications (12) Abdominal aortic aneurysm: US AAA * --> diffuse atherosclerotic plaque throughout. mid section 9.7cmx2.5cm. Fusiform aneurysm dilation of the distal abdominal aorta, 4.9 x 2.4 cm. * A partially thrombosed with the central lumen measuring 1.8 x 1.4 cm. * Obscuration of the iliac bifurcation. Discussed with vascular surgery -- may be chronic/old occlusion--> rec outpatient follow-up (13) DVT prophylaxis: * SCDs, Lovenox Dispo: patient from home, lives with . PT/OT with recommendations for return home. Likely discharge tomorrow Admission and Anticipated Discharge Date Admission Date: December 14, 2019 Supervising Physician Co-Signing Physician Notes PA Supervision Note: I did not personally see or examine the patient today, but I verified all sherwood points of AFRICA Tucker's assessment and plan with the following exceptions/additions: None 79yo male - h/o CAD, pacemaker, CKD stage 3, PAD, COPD, HTN - presents with weakness of legs - more so on right. Denies weakness of arms. Pt c/o chronic lumbar back pain on most days. He notes that the distal right leg is most weak. I discussed the case with Neuro today 1. RLE weakness -chronic as per Neuro--> outpt EMG planned 2. CKD stage 3 3. hypercalcemia - chronic - primary hyperparathyroidism? Check iPTH and Vit D, Phos in AM Needs placement possibly Subjective Patient evaluated this morning. Still with complaints of weakness, but admits it is slightly better than the day before. Denies pain at this time, but does note chronic low back pain. Discussed findings on CT lumbar spine and follow up for AAA prior to any imaging with contrast given his history of CKD. Patient denies chest pain at this time but does have intermittent waves of nausea that last a couple seconds. Denies diaphoresis, fevers, chills, visual changes, headache, chest pain, shortness of breath, abdominal pain, n/v/d, dysuria at this time. Discussed elevated troponin and that we will consult and obtain an ECHO to assess his cardiac function as a cause of his current weakness. PT/OT have not been around to see patient yet, but he does state he uses a walker at home. Questions/concerns addressed at this time. Review of Systems Review of Systems: All systems reviewed & are unremarkable except as noted in HPI & below Physical Exam Constitutional: WD/WN, vitals as above + obese; no acute distress Eyes: + anicteric sclerae and PERRL Neck: trachea midline, no thyromegaly Respiratory: able to speak in complete sentences; no respiratory distress and no labored breathing Auscultation: + diminished lung sounds (bilateral bases); no crackles, no rhonchi and no wheezes Cardiovascular: Rate/Rhythm: regular rate and regular rhythm Heart Sounds: + gallop (S4) Vessels: no JVD Extremities: + edema Gastrointestinal (Abdomen): normal bowel sounds, soft, nontender, no hepatosplenomegaly Musculoskeletal: Head/Neck/Chest: normocephalic and head atraumatic strength 4+/5 b/l LE Neurologic: patellar DTR's 2+ bilat, sensation intact absent Achilles reflex Psychiatric: Orientation: alert, oriented to person, oriented to place, oriented to time and cooperative intermittent confusion Lymphatic: no cervical or axillary lymphadenopathy Results & Data Results & Data ([facility]) Vital Signs (Past 12 Hours) Vital Signs Temp Pulse Pulse Resp BP BP Pulse Ox 12/15/19 08:10 36.3 C L 68 18 150/83 H 94 12/15/19 07:25 68 16 95 12/15/19 03:12 36.8 C 60 18 125/77 95 12/15/19 01:42 60 12/14/19 23:58 36.9 C 59 L 18 134/77 90 Laboratory Results 12/15/19 12/15/19 12/15/19 Range/Units 06:15 06:15 01:03 WBC 8.70 (4.8-10.8) K/uL RBC 4.30 L (4.7-6.1) M/uL Hgb 14.1 (14.0-18.0) g/dL Hct 44.5 (42-52) % MCV 103.5 H (80-100) fL MCH 32.8 (25-34) pg MCHC 31.7 L (32-36) g/dL RDW Std Deviation 57.3 H (36.4-46.3) fL RDW Coeff of [place]onia 15.1 H (11.5-14.5) % Plt Count 132 (130-400) K/uL MPV 12.5 H (7.4-10.4) fL Immature Gran % (Auto) 0.2 % Neut % (Auto) 53.8 % Lymph % (Auto) 30.3 % [place] % (Auto) 10.6 % Eos % (Auto) 4.4 % Baso % (Auto) 0.7 % Immature Gran # (Auto) 0.02 (0.00-0.02) K/uL Neut # (Auto) 4.68 (1.4-6.5) K/uL Lymph # (Auto) 2.64 (1.2-3.4) K/uL [place] # (Auto) 0.92 H (0.11-0.59) K/uL Eos # (Auto) 0.38 (0-0.5) K/uL Baso # (Auto) 0.06 (0-0.2) K/uL Sodium 139 (136-145) mmol/L Potassium 3.8 (3.5-5.1) mmol/L Chloride 104 (98-107) mmol/L Carbon Dioxide 32 (21-32) mmol/L Anion Gap 3.0 (3-11) BUN 24 H (7-18) mg/dl Creatinine 1.79 H (0.6-1.4) mg/dl Est Cr Clr Drug Dosing 37.5 ml/min Est GFR ( Amer) 40.3 Est GFR (Non-Af Amer) 34.8 BUN/Creatinine Ratio 13.4 (10-20) Glucose 99 (70-99) mg/dl Calcium 10.8 H (8.5-10.1) mg/dl Total Bilirubin 0.4 (0.2-1) mg/dl AST 15 (15-37) U/L ALT 14 (12-78) U/L Alkaline Phosphatase 92 (45-117) U/L Troponin I 0.066 H* (0-0.045) ng/ml Total Protein 6.7 (6.4-8.2) gm/dl Albumin 3.0 L (3.4-5.0) gm/dl Globulin 3.7 (2.5-4.0) gm/dl Albumin/Globulin Ratio 0.8 L (0.9-2) Vitamin B12 (211-911) pg/ml Folate (>5.38) ng/ml TSH (0.300-4.500) uIu/ml Urine Color Urine Appearance (Clear) Urine pH (4.5-7.5) Ur Specific [place] (1.000-1.030) Urine Protein (Negative) Urine Glucose (UA) (Negative) Urine Ketones (Negative) Urine Blood (Negative) Urine Nitrite (Negative) Urine Bilirubin (Negative) Urine Urobilinogen (Negative) Ur Leukocyte Esterase (Negative) Urine WBC (Auto) (0-5) /hpf Urine RBC (Auto) (0-4) /hpf U Hyaline Cast (Auto) (0-5) /lpf U Epithel Cells (Auto) (0-5) /lpf Urine Bacteria (Auto) (Negative) 12/14/19 12/14/19 12/14/19 Range/Units 20:06 14:43 13:15 WBC (4.8-10.8) K/uL RBC (4.7-6.1) M/uL Hgb (14.0-18.0) g/dL Hct (42-52) % MCV (80-100) fL MCH (25-34) pg MCHC (32-36) g/dL RDW Std Deviation (36.4-46.3) fL RDW Coeff of [place]onia (11.5-14.5) % Plt Count (130-400) K/uL MPV (7.4-10.4) fL Immature Gran % (Auto) % Neut % (Auto) % Lymph % (Auto) % [place] % (Auto) % Eos % (Auto) % Baso % (Auto) % Immature Gran # (Auto) (0.00-0.02) K/uL Neut # (Auto) (1.4-6.5) K/uL Lymph # (Auto) (1.2-3.4) K/uL [place] # (Auto) (0.11-0.59) K/uL Eos # (Auto) (0-0.5) K/uL Baso # (Auto) (0-0.2) K/uL Sodium (136-145) mmol/L Potassium (3.5-5.1) mmol/L Chloride (98-107) mmol/L Carbon Dioxide (21-32) mmol/L Anion Gap (3-11) BUN (7-18) mg/dl Creatinine (0.6-1.4) mg/dl Est Cr Clr Drug Dosing ml/min Est GFR ( Amer) Est GFR (Non-Af Amer) BUN/Creatinine Ratio (10-20) Glucose (70-99) mg/dl Calcium (8.5-10.1) mg/dl Total Bilirubin (0.2-1) mg/dl AST (15-37) U/L ALT (12-78) U/L Alkaline Phosphatase (45-117) U/L Troponin I 0.052 H* (0-0.045) ng/ml Total Protein (6.4-8.2) gm/dl Albumin (3.4-5.0) gm/dl Globulin (2.5-4.0) gm/dl Albumin/Globulin Ratio (0.9-2) Vitamin B12 344 (211-911) pg/ml Folate 7.43 (>5.38) ng/ml TSH (0.300-4.500) uIu/ml Urine Color Dark Yellow Urine Appearance Clear (Clear) Urine pH 6.5 (4.5-7.5) Ur Specific [place] 1.025 (1.000-1.030) Urine Protein 1+ H (Negative) Urine Glucose (UA) Negative (Negative) Urine Ketones Negative (Negative) Urine Blood Negative (Negative) Urine Nitrite Negative (Negative) Urine Bilirubin Negative (Negative) Urine Urobilinogen Negative (Negative) Ur Leukocyte Esterase Negative (Negative) Urine WBC (Auto) 1-5 (0-5) /hpf Urine RBC (Auto) 0-4 (0-4) /hpf U Hyaline Cast (Auto) 1-5 (0-5) /lpf U Epithel Cells (Auto) 10-20 H (0-5) /lpf Urine Bacteria (Auto) Negative (Negative) 12/14/19 Range/Units 10:17 WBC (4.8-10.8) K/uL RBC (4.7-6.1) M/uL Hgb (14.0-18.0) g/dL Hct (42-52) % MCV (80-100) fL MCH (25-34) pg MCHC (32-36) g/dL RDW Std Deviation (36.4-46.3) fL RDW Coeff of [place] (11.5-14.5) % Plt Count (130-400) K/uL MPV (7.4-10.4) fL Immature Gran % (Auto) % Neut % (Auto) % Lymph % (Auto) % [place] % (Auto) % Eos % (Auto) % Baso % (Auto) % Immature Gran # (Auto) (0.00-0.02) K/uL Neut # (Auto) (1.4-6.5) K/uL Lymph # (Auto) (1.2-3.4) K/uL [place] # (Auto) (0.11-0.59) K/uL Eos # (Auto) (0-0.5) K/uL Baso # (Auto) (0-0.2) K/uL Sodium (136-145) mmol/L Potassium (3.5-5.1) mmol/L Chloride (98-107) mmol/L Carbon Dioxide (21-32) mmol/L Anion Gap (3-11) BUN (7-18) mg/dl Creatinine (0.6-1.4) mg/dl Est Cr Clr Drug Dosing ml/min Est GFR ( Amer) Est GFR (Non-Af Amer) BUN/Creatinine Ratio (10-20) Glucose (70-99) mg/dl Calcium (8.5-10.1) mg/dl Total Bilirubin (0.2-1) mg/dl AST (15-37) U/L ALT (12-78) U/L Alkaline Phosphatase (45-117) U/L Troponin I (0-0.045) ng/ml Total Protein (6.4-8.2) gm/dl Albumin (3.4-5.0) gm/dl Globulin (2.5-4.0) gm/dl Albumin/Globulin Ratio (0.9-2) Vitamin B12 (211-911) pg/ml Folate (>5.38) ng/ml TSH 1.120 (0.300-4.500) uIu/ml Urine Color Urine Appearance (Clear) Urine pH (4.5-7.5) Ur Specific [place] (1.000-1.030) Urine Protein (Negative) Urine Glucose (UA) (Negative) Urine Ketones (Negative) Urine Blood (Negative) Urine Nitrite (Negative) Urine Bilirubin (Negative) Urine Urobilinogen (Negative) Ur Leukocyte Esterase (Negative) Urine WBC (Auto) (0-5) /hpf Urine RBC (Auto) (0-4) /hpf U Hyaline Cast (Auto) (0-5) /lpf U Epithel Cells (Auto) (0-5) /lpf Urine Bacteria (Auto) (Negative) Diagnostic Findings CT Lumbar Spine IMPRESSION: 1. Degenerative disc change of the lumbar spine considered most prominent at L5- S1. 2. No significant compromise of the spinal canal. 3. Aneurysmal dilatation of the abdominal aorta and iliac vasculature only partially imaged on this study. A CT evaluation of the abdomen and pelvis to evaluate the arterial structures is suggested. US AAA IMPRESSION: Extensive atherosclerotic vascular disease with fusiform aneurysmal dilation of the distal abdominal aorta measuring up to 4.9 cm. ECG Indication: other (+ troponin, weakness) Rate (beats per minute): 60 Rhythm: other (atrial paced) Findings: + LBBB Change: no significant change (from 12/14/19) PG Care Time/CCT Total # of Minutes Spent Total Time Spent with Patient: Total time spent is greater than 50% in coordination of care (as documented) at patient's floor/unit and/or counseling patient: Coding Level of Care Code 18626 Subseq Obs Care Lvl 3 Diagnoses Weakness R53.1 Lyme borreliosis A69.20 Hypertension I10 Hypertension type: unspecified CAD (coronary artery disease) I25.10 Associated angina: without angina Coronary Disease-Associated Artery/Lesion type: [place] artery [place] vs. transplanted heart: [place] heart Hyperlipidemia E78.5 Diastolic CHF I50.30 Presence of cardiac pacemaker Z95.0 Hypercalcemia E83.52 Depression F32.9 Chronic renal insufficiency N18.9 Chronic ischemic heart disease I25.9 Abdominal aortic aneurysm I71.4 DVT prophylaxis Z29.9 (1) CAD (coronary artery disease) Associated angina: without angina Coronary Disease-Associated Artery/Lesion type: [place] artery [place] vs. transplanted heart: [place] heart (2) Hypertension Hypertension type: unspecified Qualified Code(s): I10 - Essential (primary) hypertension
--- NOTE | 2019-12-15 12:47 | XCELERA ---
[id number]
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
[2019-12-15 13:38] LABS: Lyme Ab IgG w/WB Rflx Positive (Negative); Lyme Ab IgM w/WB Rflx Equivocal (Negative)
--- NOTE | 2019-12-15 14:04 | Ultrasound Report ---
US abdominal aortic aneurysm HISTORY: 79 years-old Male AAA . Study patient with abdominal aortic aneurysm COMPARISON: CT lumbar spine 12/14/2019 TECHNIQUE: Multiple real-time sonographic images of the abdominal aorta were obtained assessing ti bassam appearance, color and spectral flow FINDINGS: There is diffuse atherosclerotic plaque throughout the abdominal aorta. The proximal portion is obscu red by bowel gas. The mid section measures 9.7 x 2.5 cm. Fusiform aneurysm dilation of the distal abd ominal aorta, 4.9 x 2.4 cm. This is partially thrombosed with the central lumen measuring 1.8 x 1.4 c m. Obscuration of the iliac bifurcation. IMPRESSION: Extensive atherosclerotic vascular disease with fusiform aneurysmal dilation of the dista l abdominal aorta measuring up to 4.9 cm. ACT 112: Negative or not required by law. The above report was generated using voice recognition software. It may contain grammatical, syntax o r spelling errors. Electronically signed by: Terence Hough M.D. 12/15/2019 2:02 PM
--- NOTE | 2019-12-15 17:08 | Electrocardiogram Report ---
Test Reason : Blood Pressure : / mmHG Vent. Rate : 060 BPM Atrial Rate : 060 BPM P-R Int : 000 ms QRS Dur : 184 ms QT Int : 480 ms P-R-T Axes : 000 -30 142 degrees QTc Int : 480 ms Atrial-paced rhythm Left axis deviation Left bundle branch block Abnormal ECG When compared with ECG of 14-DEC-2019 10:19, No significant change was found Confirmed by Chuck Saeed ([id number]) on 12/15/2019 5:08:35 PM Referred By: REFERRED SELF Confirmed By:Gerardo Saeed
[2019-12-15] MEDS: DOXYCYCLINE HYCLATE 100 MG CAP PO SCH (17:34)
[2019-12-15] MEDS: ENOXAPARIN INJ 30 MG/0.3 ML SYR SQ SCH (20:29)
[2019-12-16 06:33] LABS: BUN Creatinine Ratio 15.5 (10-20); Calcium 10.8 mg/dl (8.5-10.1); Creatinine Clr Calc Pharmacy 38.1 ml/min; Est GFR (African American) 41.1; Est GFR (Non-African American) 35.5; Phosphorus 2.2 mg/dl (2.5-4.9); Potassium 3.9 mmol/L (3.5-5.1)
[2019-12-16 06:34] LABS: Hematocrit (blood only) 42.4 % (42-52); Hemoglobin 13.6 g/dL (14.0-18.0); Mean Corpuscular Hemoglobin 32.4 pg (25-34); Mean Corpuscular Hgb Conc 32.1 g/dL (32-36); Mean Platelet Volume 12.5 fL (7.4-10.4); Platelet Count 124 K/uL (130-400); Platelet Estimate Decreased (Normal); RDW Coefficient of Variation 14.8 % (11.5-14.5); White Blood Count 9.15 K/uL (4.8-10.8)
[2019-12-16] MEDS: ALBUTEROL HFA 8 GM INHALER INH SCH (07:34)
[2019-12-16] MEDS: IPRATROPIUM BROMIDE HFA INHALER INH SCH (07:34)
[2019-12-16] MEDS: METOPROLOL TARTRATE 50 MG TAB PO SCH (08:18)
[2019-12-16] MEDS: RANOLAZINE 500 MG ER TAB PO SCH (08:18)
[2019-12-16] MEDS: ASPIRIN 81 MG ECTAB PO SCH (08:18)
[2019-12-16] MEDS: FUROSEMIDE 40 MG TAB PO SCH (08:18)
[2019-12-16] MEDS: ROSUVASTATIN CALCIUM 20 MG TAB PO SCH (08:18)
[2019-12-16] MEDS: DOXYCYCLINE HYCLATE 100 MG CAP PO SCH (08:19)
[2019-12-16] MEDS: POTASSIUM CHLORIDE 10 MEQ TABCR PO SCH (08:19)
[2019-12-16] MEDS: CLOPIDOGREL BISULFATE 75 MG TAB PO SCH (08:20)
[2019-12-16] MEDS: CITALOPRAM 20 MG TAB PO SCH (08:21)
[2019-12-16] MEDS ORDERED: CHOLECALCIFEROL 1,000 UNITS 25 MCG TAB PO SCH (09:00)
[2019-12-16] MEDS: POT PHOSPHATE MONOBASIC W/ SOD TAB PO SCH ×2 (09:29→12:37)
[2019-12-16] MEDS: ACETAMINOPHEN 500 MG TAB PO PRN (10:42)
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
[2019-12-21 08:20] LABS: 18KDIGG Band REACTIVE; 23KDIGG Band NON-REACTIVE; 23KDIGM Band REACTIVE; 28KDIGG Band REACTIVE; 30KDIGG Band REACTIVE; 39KDIGG Band REACTIVE; 39KDIGM Band NON-REACTIVE; 41KDIGG Band REACTIVE; 41KDIGM Band NON-REACTIVE; 45KDIGG Band REACTIVE; 58KDIGG Band REACTIVE; 66KDIGG Band NON-REACTIVE; 93KDIGG Band NON-REACTIVE; Lyme Antibodies, WB IgG POSITIVE (NEGATIVE); Lyme Antibodies, WB IgM NEGATIVE (NEGATIVE)
== END 2019-12-16 14:02 | disposition home or self-care (01) ==
LOC: ED 09:27 → 2N 09:27 → SUATTDRO 14:16 → 2N 15:23

== ENCOUNTER 2020-01-17 23:37 | Observation (INO) ==
[2020-01-17] MEDS ORDERED: SODIUM CHLORIDE 0.9% 1000ML 1,000 ML IV SCH (23:45)
[2020-01-17] MEDS ORDERED: ONDANSETRON INJ 2 MG/ML 2 ML VIAL IV STA (23:50)
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
[2020-01-18 01:10] LABS: Albumin Level 3.1 gm/dl (3.4-5.0); BUN Creatinine Ratio 19.2 (10-20); Calcium 11.3 mg/dl (8.5-10.1); Creatinine Clr Calc Pharmacy 33.7 ml/min; Est GFR (African American) 35.2; Est GFR (Non-African American) 30.4; INR 1.2 (0.9-1.1); Magnesium 2.1 mg/dl (1.8-2.4); Potassium 3.6 mmol/L (3.5-5.1); Prothrombin Time 12.5 Seconds (9.0-12.0)
[2020-01-18 01:18] LABS: Hematocrit (blood only) 45.9 % (42-52); Hemoglobin 15.6 g/dL (14.0-18.0); Mean Corpuscular Hemoglobin 32.9 pg (25-34); Mean Corpuscular Volume 96.8 fL (80-100); Mean Platelet Volume 12.8 fL (7.4-10.4); Platelet Count 115 K/uL (130-400); RDW Coefficient of Variation 14.3 % (11.5-14.5); RDW Standard Deviation 51.3 fL (36.4-46.3); Red Blood Count 4.74 M/uL (4.7-6.1); White Blood Count 17.44 K/uL (4.8-10.8)
[2020-01-18 01:21] LABS: Albumin Globulin Ratio 0.8 (0.9-2); Bilirubin,Total 0.9 mg/dl (0.2-1); Globulin 4.1 gm/dl (2.5-4.0); Total Protein 7.2 gm/dl (6.4-8.2); Troponin I 0.082 ng/ml (0-0.045)
[2020-01-18 01:33] LABS: Basophils # (auto) 0.04 K/uL (0-0.2); Basophils % (auto) 0.2 %; Eosinophils # (auto) 0.17 K/uL (0-0.5); Immature Granulocytes # (auto) 0.07 K/uL (0.00-0.02); Immature Granulocytes % (auto) 0.4 %; Lymphocytes # (auto) 1.93 K/uL (1.2-3.4); Lymphocytes % (auto) 11.1 %; Monocytes # (auto) 1.77 K/uL (0.11-0.59); Monocytes % (auto) 10.1 %; Neutrophils # (auto) 13.46 K/uL (1.4-6.5); Neutrophils % (auto) 77.2 %; Platelet Estimate Decreased (Normal); RBC Morphology Unremarkable
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
[2020-01-18] MEDS ORDERED: ONDANSETRON INJ 2 MG/ML 2 ML VIAL IV PRN (03:22)
[2020-01-18] MEDS ORDERED: NITROGLYCERIN SL 0.4 MG/TAB TAB SL PRN (03:22)
[2020-01-18] MEDS: SODIUM CHLORIDE 0.9% 1000ML 1,000 ML IV SCH ×2 (04:05→08:05)
[2020-01-18 04:10] LABS: Appearance Urine Clear (Clear); Bacteria Urine Automated Negative (Negative); Bilirubin Urine Negative (Negative); Blood Urine Negative (Negative); Color Urine Yellow; Glucose Urine UA Negative (Negative); Ketones Urine Negative (Negative); Leukocyte Esterase Urine Negative (Negative); Nitrite Urine Negative (Negative); Protein Urine 1+ (Negative); RBC Urine Automated 0-4 /hpf (0-4); Specific Gravity Urine 1.025 (1.000-1.030); Urobilinogen Urine Negative (Negative)
[2020-01-18 07:03] LABS: Estimated Average Glucose 128 mg/dl; Hemoglobin A1C 6.1 % (4.5-5.6)
--- NOTE | 2020-01-18 07:03 | CT Scan Report ---
CT head/brain wo con CLINICAL HISTORY: 79 years-old Male with fall, chi. Acute head injury status post fall TECHNIQUE: Multiple axial CT images of the head were obtained without contrast. A dose lowering tech nique was utilized adhering to the principles of ALARA. CT DOSE: 1031.78 mGy.cm COMPARISON: Head CT 12/14/2019 FINDINGS: No acute intracranial hemorrhage, midline shift, intracranial mass, hydrocephalus, territorial ischem ia or abnormal extra-axial collection. Age-related involutional changes with ex vacuo ventriculomegal y. Extensive patchy white matter hypodensities suggest chronic microvascular ischemic disease. Remote lacunar infarcts of the basal ganglia. Cerebral vascular calcifications. The calvarium is intact. Postoperative changes of the maxilla, frontal and nasal bones. Prior bilater al lens replacement. The paranasal sinuses, mastoid air cells, and middle ear cavities are clear. IMPRESSION: No acute intracranial abnormality or calvarial fracture. ACT 112: Negative or not required by law. The above report was generated using voice recognition software. It may contain grammatical, syntax o r spelling errors. Electronically signed by: Terence Hough M.D. 01/18/2020 7:01 AM
[2020-01-18 07:06] LABS: INR 1.2 (0.9-1.1); Prothrombin Time 12.5 Seconds (9.0-12.0)
--- NOTE | 2020-01-18 07:07 | XRay Report ---
XR chest 1V portable HISTORY: 79 years-old Male trauma acute chest trauma status post fall COMPARISON: Chest radiograph 12/14/2019 TECHNIQUE: Portable AP view of the chest FINDINGS: The cardiac silhouette is enlarged, unchanged. Calcified plaque of the thoracic aortic arch. Left sub clavian pacer. Prior median sternotomy and CABG. No pneumothorax, pleural effusion, airspace consolid ation or overt pulmonary edema. Degenerative changes of the shoulders and spine. IMPRESSION: No acute process. ACT 112: Negative or not required by law. The above report was generated using voice recognition software. It may contain grammatical, syntax o r spelling errors. Electronically signed by: Terence Hough M.D. 01/18/2020 7:06 AM
--- NOTE | 2020-01-18 07:20 | CT Scan Report ---
CT SCAN OF THE CERVICAL SPINE CLINICAL HISTORY: Trauma. Fall. COMPARISON STUDY: CT of the cervical spine dated 06/16/2018. TECHNIQUE: CT scan of the cervical spine is performed from the skull base to the upper thoracic spine . Images are reviewed in the axial, sagittal, and coronal planes. IV contrast was not administered fo r this examination. A dose lowering technique was utilized adhering to the principles of ALARA. FINDINGS: Skeletal structures: The skeletal structures are osteopenic. There is no evidence of fracture or subl uxation involving the cervical spine. Vertebral body height and alignment are maintained. There is st raightening of the cervical lordosis. Anterior osteophytes are seen in the lower cervical region. The odontoid process and lateral masses are intact. The atlantoaxial articulation is preserved noting pr oductive degenerative change. The spinous processes appear intact. There is moderate multilevel cervi madhu spondylosis. Uncovertebral and facet arthropathy contribute to neural foraminal narrowing at netta ral levels. Intervertebral discs: There is moderate to advanced disc space narrowing seen at C4-C5, C5-C6, and C6 -C7. Moderate disc space narrowing is seen C3-C4. Central canal: There are large posterior disc osteophyte complexes at all cervical levels. This likel y contributes to multilevel acquired compromise of the central canal. Soft tissues: The prevertebral and paraspinous soft tissues are within normal limits. A metallic clip /foreign body is present in the soft tissues of the left neck. The thyroid gland is enlarged and hete rogeneous. Calvarium: The visualized calvarium at the skull base appears intact. Brain parenchyma: Partially visualized brain parenchyma the skull base is within normal limits. Sinuses and mastoids: Minimal secretions are noted in the sphenoid sinuses. The mastoid air cells are well pneumatized. IMPRESSION: 1. There is no evidence of fracture or subluxation involving the cervical spine. 2. Osteopenia and spondylotic change as above. ACT 112: Negative or not required by law. Electronically signed by: Anjum Junior M.D. 01/18/2020 7:19 AM
[2020-01-18 07:23] LABS: Albumin Level 2.8 gm/dl (3.4-5.0); BUN Creatinine Ratio 19.3 (10-20); Calcium 11.1 mg/dl (8.5-10.1); Creatinine Clr Calc Pharmacy 37.4 ml/min; Est GFR (African American) 40.6; Potassium 3.4 mmol/L (3.5-5.1)
[2020-01-18 07:28] LABS: Albumin Globulin Ratio 0.7 (0.9-2); Bilirubin,Total 0.9 mg/dl (0.2-1); Globulin 4.1 gm/dl (2.5-4.0); Hematocrit (blood only) 45.5 % (42-52); Hemoglobin 15.4 g/dL (14.0-18.0); Mean Corpuscular Hemoglobin 33.1 pg (25-34); Mean Corpuscular Hgb Conc 33.8 g/dL (32-36); Mean Corpuscular Volume 97.8 fL (80-100); Mean Platelet Volume 13.2 fL (7.4-10.4); Phosphorus 2.8 mg/dl (2.5-4.9); Platelet Count 108 K/uL (130-400); RDW Coefficient of Variation 14.5 % (11.5-14.5); RDW Standard Deviation 52.1 fL (36.4-46.3); Red Blood Count 4.65 M/uL (4.7-6.1); Total Protein 6.9 gm/dl (6.4-8.2); Troponin I 0.112 ng/ml (0-0.045); White Blood Count 17.93 K/uL (4.8-10.8)
[2020-01-18 07:29] LABS: Basophils # (auto) 0.03 K/uL (0-0.2); Basophils % (auto) 0.2 %; Eosinophils # (auto) 0.23 K/uL (0-0.5); Eosinophils % (auto) 1.3 %; Immature Granulocytes # (auto) 0.05 K/uL (0.00-0.02); Immature Granulocytes % (auto) 0.3 %; Lymphocytes # (auto) 2.55 K/uL (1.2-3.4); Lymphocytes % (auto) 14.2 %; Monocytes # (auto) 1.94 K/uL (0.11-0.59); Monocytes % (auto) 10.8 %; Neutrophils # (auto) 13.13 K/uL (1.4-6.5); Neutrophils % (auto) 73.2 %; Platelet Estimate Decreased (Normal); RBC Morphology Unremarkable
--- NOTE | 2020-01-18 08:51 | CT Scan Report ---
ABDOMEN AND PELVIS CT WITHOUT CONTRAST CT DOSE: 987.32 mGy.cm HISTORY: Nausea. Vomiting. Right lower quadrant pain. TECHNIQUE: Multiaxial CT images of the abdomen and pelvis were performed without contrast. A dose lo wering technique was utilized adhering to the principles of ALARA. COMPARISON STUDY: None. FINDINGS: Mild dependent changes seen at the lung bases. No pneumoperitoneum. No pneumatosis. Right f emoral neck pinning is noted. No suspicious lytic are blastic osseous lesions. Pacemaker wires are no eileen. Cholecystectomy. The unenhanced liver, spleen, and adrenal glands are unremarkable. Mild fat str anding surrounding the pancreas and second portion of the duodenum. This is consistent with acute yeager creatitis. No peripancreatic fluid collections. Small to moderate right inguinal hernia containing a short segment of small bowel. The prostate gland normal in size. The bladder is unremarkable. Subopti mal evaluation for bowel pathology due to the lack of intravenous and oral contrast. However, there i s no evidence for bowel obstruction. Mild thickening at the second portion of duodenum is likely reac tive to the acute pancreatitis. No additional areas of bowel wall thickening identified. No renal or ureteral stones. No hydronephrosis. Moderate bilateral cortical renal thinning. Multiple hyper and hy poechoic dense lesions within the left kidney. These are incompletely characterized on this noncontra st study. A 3 cm right retrocrural lobular density on image 88. This favors a saccular aneurysm at th e junction of the thoracic/abdominal aorta. There is also an additional small saccular aneurysm seen posteriorly at the proximal abdominal aorta measuring 2.0 cm. There is a bilobed infrarenal abdominal aortic aneurysm. This measures a maximal diameter of 5.4 cm. There is a 2.6 cm fusiform aneurysm wit hin the left common iliac artery and a 3.2 cm fusiform aneurysm at the left common femoral artery. IMPRESSION: 1. Acute pancreatitis. No peripancreatic fluid collections at this time. 2. Prior cholecystectomy. 3. 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 There is also a bilobed infrare nal abdominal aortic aneurysm and left common iliac and common femoral aneurysms as described above. 4. Small to moderate right inguinal hernia containing a short segment of small bowel. No evidence for bowel obstruction. 5. Additional findings as described above. ACT 112: Negative or not required by law. Electronically signed by: Elliott Bateman M.D. 01/18/2020 8:50 AM
[2020-01-18] MEDS: ROSUVASTATIN CALCIUM 20 MG TAB PO SCH (09:28)
[2020-01-18] MEDS: ASPIRIN 81 MG ECTAB PO SCH (09:29)
[2020-01-18] MEDS: METOPROLOL TARTRATE 50 MG TAB PO SCH ×2 (09:29→20:43)
[2020-01-18] MEDS: IPRATROPIUM BROMIDE/ALBUTEROL respimat INH INH SCH ×2 (09:29→20:42)
[2020-01-18] MEDS: RANOLAZINE 500 MG ER TAB PO SCH ×2 (09:29→20:43)
[2020-01-18] MEDS: CLOPIDOGREL BISULFATE 75 MG TAB PO SCH (09:29)
[2020-01-18] MEDS: CITALOPRAM 20 MG TAB PO SCH (09:29)
[2020-01-18] MEDS: LACTATED RINGER'S 1,000 ML IV SCH ×2 (09:34→16:33)
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
--- NOTE | 2020-01-18 12:37 | Electrocardiogram Report ---
Test Reason : Blood Pressure : / mmHG Vent. Rate : 088 BPM Atrial Rate : 088 BPM P-R Int : 254 ms QRS Dur : 196 ms QT Int : 418 ms P-R-T Axes : 061 -44 112 degrees QTc Int : 505 ms Sinus rhythm with 1st degree A-V block with occasional Premature ventricular complexes Left axis deviation Left bundle branch block Abnormal ECG When compared with ECG of 15-DEC-2019 07:47, Sinus rhythm has replaced Electronic atrial pacemaker T wave inversion less evident in Lateral leads Confirmed by Laimn Delgado ([id number]) on 01/18/2020 12:36:31 PM Referred By: REFERRED SELF Confirmed By:Lamin Delgado
--- NOTE | 2020-01-18 15:28 | History & Physical Bridge Note ---
Date of Service January 18, 2020 History & Physical Bridge Note Feeling some better today. Labs improving. Seen by GI with unclear reason for pancreatitis; however, possibly furosemide. - Increase diet as tolerated. - PT/OT - GI follow up.
[2020-01-19] MEDS: LACTATED RINGER'S 1,000 ML IV SCH (00:35)
--- NOTE | 2020-01-19 00:38 | Billing Data ---
Date of Service January 19, 2020 Coding Level of Care Code 61228 Initial Inpt Care Lvl 3
[2020-01-19 08:03] LABS: Hematocrit (blood only) 41.1 % (42-52); Hemoglobin 13.4 g/dL (14.0-18.0); Mean Corpuscular Hemoglobin 32.3 pg (25-34); Mean Corpuscular Hgb Conc 32.6 g/dL (32-36); RDW Coefficient of Variation 14.6 % (11.5-14.5); RDW Standard Deviation 52.7 fL (36.4-46.3); Red Blood Count 4.15 M/uL (4.7-6.1); White Blood Count 13.51 K/uL (4.8-10.8)
[2020-01-19 08:06] LABS: INR 1.2 (0.9-1.1); Prothrombin Time 12.8 Seconds (9.0-12.0)
--- NOTE | 2020-01-19 08:22 | Gastroenterology Progress Note ---
Date of Service January 19, 2020 Assessment & Plan (1) Fall: (2) Pancreatitis: Pt is a 79 y/o male admitted after a fall. Was having n/v, RLQ abd pain at home prior to admission and upon evaluation noted to have elevated Lipase and CT abd/pelvis w/o contrast evidence of pancreatitis w/o fluid collection. He is s/p cholecystectomy. LFTs were normal. TG 111. He is a smoker, denies ETOH uses. Denies family hx of autoimmune/pancreatic dz. Etiology of pancreatitis unclear at this time. New med recently started is Doxycycline for suspected Lymes disease. 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 Please refer to the nurse practitioner's note for the documented findings and plan of care. Subjective Pt denies abd pain, n/v. Tolerating CL diet well. Afebrile overnight Review of Systems 2 Review of Systems: All systems reviewed & are unremarkable except as noted in HPI & below Physical Exam Constitutional: WD/WN, vitals as above well groomed, cooperative and comfortable Eyes: PERRL, conjunctivae normal, anicteric sclerae ENMT: external ear and nose normal, oropharynx normal Respiratory: no respiratory distress and does not use accessory muscles Auscultation: + diminished lung sounds Cardiovascular: RRR, no murmur, no edema Gastrointestinal (Abdomen): normal bowel sounds, soft, nontender, no hepatosp lenomegaly Percussion/Palpation: + abdomen tender Skin: no rashes, warm and dry no jaundice Psychiatric: A+Ox3, euthymic affect Lymphatic: + lymphedema (bilateral feet edematous) Results & Data ([facility]) Vital Signs (Past 12 Hours) Vital Signs Temp Pulse Pulse Pulse Resp BP Pulse Ox 01/19/20 07:53 37.1 C 64 19 154/74 H 96 01/19/20 03:33 37.3 C 64 18 156/70 H 92 01/19/20 00:00 60 01/18/20 23:30 37.3 C 63 19 142/64 H 96 (1) Pancreatitis Acute pancreatitis complication: no infection or necrosis Chronicity: acute Pancreatitis type: unspecified pancreatitis type Qualified Code(s): K85.90 - Acute pancreatitis without necrosis or infection, unspecified (2) Fall Encounter type: initial encounter Qualified Code(s): W19.XXXA - Unspecified fall, initial encounter
[2020-01-19 08:37] LABS: Albumin Level 2.3 gm/dl (3.4-5.0); BUN Creatinine Ratio 21.3 (10-20); Calcium 10.6 mg/dl (8.5-10.1); Creatinine Clr Calc Pharmacy 49.7 ml/min; Est GFR (African American) 57.2; Est GFR (Non-African American) 49.3; Potassium 3.7 mmol/L (3.5-5.1)
[2020-01-19 08:42] LABS: Albumin Globulin Ratio 0.7 (0.9-2); Bilirubin,Total 0.9 mg/dl (0.2-1); Globulin 3.3 gm/dl (2.5-4.0); Total Protein 5.6 gm/dl (6.4-8.2)
[2020-01-19 09:00] LABS: Mean Platelet Volume 12.8 fL (7.4-10.4); Platelet Count 95 K/uL (130-400)
[2020-01-19 09:02] LABS: Basophils # (auto) 0.04 K/uL (0-0.2); Basophils % (auto) 0.3 %; Giant Platelets 1+; Immature Granulocytes # (auto) 0.03 K/uL (0.00-0.02); Immature Granulocytes % (auto) 0.2 %; Lymphocytes # (auto) 2.14 K/uL (1.2-3.4); Lymphocytes % (auto) 15.8 %; Monocytes # (auto) 1.64 K/uL (0.11-0.59); Monocytes % (auto) 12.1 %; Neutrophils # (auto) 9.26 K/uL (1.4-6.5); Neutrophils % (auto) 68.6 %
[2020-01-19] MEDS: IPRATROPIUM BROMIDE/ALBUTEROL respimat INH INH SCH ×2 (09:14→20:43)
[2020-01-19] MEDS: METOPROLOL TARTRATE 50 MG TAB PO SCH ×2 (09:15→20:43)
[2020-01-19] MEDS: CLOPIDOGREL BISULFATE 75 MG TAB PO SCH (09:15)
[2020-01-19] MEDS: RANOLAZINE 500 MG ER TAB PO SCH ×2 (09:15→20:44)
[2020-01-19] MEDS: ROSUVASTATIN CALCIUM 20 MG TAB PO SCH (09:15)
[2020-01-19] MEDS: CITALOPRAM 20 MG TAB PO SCH (09:15)
[2020-01-19] MEDS: ASPIRIN 81 MG ECTAB PO SCH (09:15)
[2020-01-19] MEDS ORDERED: TORSEMIDE 10 MG TAB PO SCH (10:35)
[2020-01-19] MEDS: TORSEMIDE 10 MG TAB PO SCH (11:31)
--- NOTE | 2020-01-19 15:03 | Hospitalist Progress Note ---
Date of Service January 19, 2020 Assessment & Plan (1) Pancreatitis: Initial lipase was 2300 with coralating evidence on CT a/p on admission. - Was initially NPO with lactated ringer's IV fluids. - Now tolerarint diet with resolved lipase and no abdominal pain, nausea, or vomiting. - Seen by GI who posit drug-induced pancreatitis vs. anatomic abnormality. Plan for endoscopic ultrasound in 4-6 weeks (2) Chronic ischemic heart disease: LV EF 50-55% on echo in 11/2019. - Continue ASA, Plavix, beta-redd, ranolazine, and statin - Started torsemide 20 mg PO daily on 01/18 (switched from furosemide for concern for it causing his pancreatitis) (3) Fall: Likely multifactorial from acute illness, age, debility. - PT/OT entered on 01/18 -> (4) Chronic renal insufficiency: Baseline Cr ~1.5, eGFR 45. Grade III CKD. - Presently 1.34, so at/better than baseline - Monitor while on torsemide (5) Hypertension: BP is 150/70 today. - Continue home beta-redd - Restarted diuretic on 01/18 (6) Diastolic CHF: Chronic diastolic heart failure. Presently appears euvolemic. - Restarted diuretic on 01/18 as he was no longer dehydrated. (7) COPD (chronic obstructive pulmonary disease): At baseline, on no maintenance inhalers per med list. - DuoNebs PRN (8) Depression: - Continue citalopram (9) DVT prophylaxis: Heparin 5000 units BID Admission and Anticipated Discharge Date Admission Date: January 18, 2020 Subjective Feels well today. No major complaints. Appetite is good. Reports no fevers/chills, chest pain, shortness of breath, abdominal pain, nausea, or vomiting. Physical Exam Constitutional: WD/WN, vitals as above Eyes: EOM intact bilaterally; no conjunctival abnormality ENMT: external ear and nose normal, oropharynx normal Neck: trachea midline, no thyromegaly normal visual inspection Respiratory: normal respiratory effort, lungs clear to auscultation no respiratory distress Cardiovascular: RRR, no murmur, no edema Gastrointestinal (Abdomen): Inspection/Auscultation: abdomen normal to inspection; abdomen not distended Musculoskeletal: no cyanosis or clubbing, extremities motor strength 5/5 Skin: no rashes, warm and dry Neurologic: moves all extremities and awake Psychiatric: Orientation: alert, oriented to person and cooperative Results & Data Results & Data ([facility]) Vital Signs (Past 12 Hours) Vital Signs Temp Pulse Pulse Resp BP Pulse Ox 01/19/20 11:40 37.0 C 64 20 147/70 H 97 01/19/20 07:53 37.1 C 64 19 154/74 H 96 01/19/20 03:33 37.3 C 64 18 156/70 H 92 PG Care Time/CCT Total # of Minutes Spent Total Time Spent with Patient: Total time spent is greater than 50% in coordination of care (as documented) at patient's floor/unit and/or counseling patient: Coding Level of Care Code 32184 Subseq Hosp Care Lvl 2 Diagnoses Pancreatitis K85.90 Acute pancreatitis complication: no infection or necrosis Chronicity: acute Pancreatitis type: unspecified pancreatitis type Chronic ischemic heart disease I25.9 Fall W19.XXXA Encounter type: initial encounter Chronic renal insufficiency N18.9 Hypertension I10 Hypertension type: essential hypertension Diastolic CHF I50.30 COPD (chronic obstructive pulmonary disease) J44.9 COPD type: unspecified COPD Depression F32.9 DVT prophylaxis Z29.9 (1) Pancreatitis Acute pancreatitis complication: no infection or necrosis Chronicity: acute Pancreatitis type: unspecified pancreatitis type Qualified Code(s): K85.90 - Acute pancreatitis without necrosis or infection, unspecified (2) Fall Encounter type: initial encounter Qualified Code(s): W19.XXXA - Unspecified fall, initial encounter (3) COPD (chronic obstructive pulmonary disease) COPD type: unspecified COPD (4) Hypertension Hypertension type: essential hypertension Qualified Code(s): I10 - Essential (primary) hypertension
[2020-01-20 07:38] LABS: Hematocrit (blood only) 41.9 % (42-52); Hemoglobin 14.1 g/dL (14.0-18.0); Mean Corpuscular Hgb Conc 33.7 g/dL (32-36); Mean Corpuscular Volume 98.1 fL (80-100); Mean Platelet Volume 12.8 fL (7.4-10.4); Platelet Count 112 K/uL (130-400); RDW Coefficient of Variation 14.5 % (11.5-14.5); Red Blood Count 4.27 M/uL (4.7-6.1); White Blood Count 13.04 K/uL (4.8-10.8)
[2020-01-20] MEDS: IPRATROPIUM BROMIDE/ALBUTEROL respimat INH INH SCH ×2 (07:46→20:11)
[2020-01-20] MEDS: ROSUVASTATIN CALCIUM 20 MG TAB PO SCH (07:47)
[2020-01-20] MEDS: CITALOPRAM 20 MG TAB PO SCH (07:47)
[2020-01-20] MEDS: TORSEMIDE 10 MG TAB PO SCH (07:47)
[2020-01-20] MEDS: METOPROLOL TARTRATE 50 MG TAB PO SCH ×2 (07:48→20:12)
[2020-01-20] MEDS: CLOPIDOGREL BISULFATE 75 MG TAB PO SCH (07:48)
[2020-01-20] MEDS: ASPIRIN 81 MG ECTAB PO SCH (07:48)
[2020-01-20] MEDS: RANOLAZINE 500 MG ER TAB PO SCH ×2 (07:48→20:12)
[2020-01-20 07:51] LABS: BUN Creatinine Ratio 17.7 (10-20); Calcium 10.9 mg/dl (8.5-10.1); Creatinine Clr Calc Pharmacy 37.2 ml/min; Est GFR (African American) 40.3; Est GFR (Non-African American) 34.8; Potassium 3.7 mmol/L (3.5-5.1)
[2020-01-20] MEDS ORDERED: LACTATED RINGER'S 500 ML IV ONE (10:40)
--- NOTE | 2020-01-20 16:04 | Hospitalist Progress Note ---
Date of Service January 20, 2020 Assessment & Plan (1) Pancreatitis: Initial lipase was 2300 with coralating evidence on CT a/p on admission. - Was initially NPO with lactated ringer's IV fluids. - Now tolerarint diet with resolved lipase and no abdominal pain, nausea, or vomiting. - Seen by GI who posit drug-induced pancreatitis vs. anatomic abnormality. Plan for endoscopic ultrasound in 4-6 weeks (2) Chronic ischemic heart disease: LV EF 50-55% on echo in 11/2019. - Continue ASA, Plavix, beta-redd, ranolazine, and statin - Started torsemide 20 mg PO daily on 01/18 (switched from furosemide for concern for it causing his pancreatitis), but caused SHARRON. - Stopped today. Given small IV fluid bolus. (3) Fall: Likely multifactorial from acute illness, age, debility. - PT/OT entered on 01/18 -> Recommend rehab (4) Chronic renal insufficiency: Baseline Cr ~1.5, eGFR 45. Grade III CKD. - Presently 1.34, so at/better than baseline - Monitor while on torsemide -> Worsened today. Now with acute kidney injury. Holding diuretic. (5) Hypertension: BP is 150/70 today. - Continue home beta-redd - Restarted diuretic on 01/18, then held on 01/19. (6) Diastolic CHF: Chronic diastolic heart failure. Presently appears euvolemic. - Restarted diuretic on 01/18 as he was no longer dehydrated, then held for kidney injury. (7) COPD (chronic obstructive pulmonary disease): At baseline, on no maintenance inhalers per med list. - DuoNebs PRN (8) Depression: - Continue citalopram (9) DVT prophylaxis: Heparin 5000 units BID Admission and Anticipated Discharge Date Admission Date: January 18, 2020 Subjective No major abdominal pain today. In good spirits. Reports no fevers/chills, chest pain, shortness of breath, abdominal pain, nausea, or vomiting. Physical Exam Constitutional: WD/WN, vitals as above Eyes: EOM intact bilaterally; no conjunctival abnormality ENMT: external ear and nose normal, oropharynx normal Neck: trachea midline, no thyromegaly normal visual inspection Respiratory: normal respiratory effort, lungs clear to auscultation no respiratory distress Cardiovascular: RRR, no murmur, no edema Gastrointestinal (Abdomen): Inspection/Auscultation: abdomen normal to inspection; abdomen not distended Musculoskeletal: no cyanosis or clubbing, extremities motor strength 5/5 Skin: no rashes, warm and dry Neurologic: moves all extremities and awake Psychiatric: Orientation: alert, oriented to person and cooperative Results & Data Results & Data ([facility]) Vital Signs (Past 12 Hours) Vital Signs Temp Pulse Resp BP Pulse Ox 01/20/20 15:21 36.8 C 61 18 116/69 93 01/20/20 07:19 36.5 C 68 18 138/77 99 PG Care Time/CCT Total # of Minutes Spent Total Time Spent with Patient: Total time spent is greater than 50% in coordination of care (as documented) at patient's floor/unit and/or counseling patient: Coding Level of Care Code 11742 Subseq Hosp Care Lvl 3 Diagnoses Pancreatitis K85.90 Acute pancreatitis complication: no infection or necrosis Chronicity: acute Pancreatitis type: unspecified pancreatitis type Chronic ischemic heart disease I25.9 Fall W19.XXXA Encounter type: initial encounter Chronic renal insufficiency N18.9 Hypertension I10 Hypertension type: essential hypertension Diastolic CHF I50.30 COPD (chronic obstructive pulmonary disease) J44.9 COPD type: unspecified COPD Depression F32.9 DVT prophylaxis Z29.9 (1) Pancreatitis Acute pancreatitis complication: no infection or necrosis Chronicity: acute Pancreatitis type: unspecified pancreatitis type Qualified Code(s): K85.90 - Acute pancreatitis without necrosis or infection, unspecified (2) Fall Encounter type: initial encounter Qualified Code(s): W19.XXXA - Unspecified fall, initial encounter (3) Hypertension Hypertension type: essential hypertension Qualified Code(s): I10 - Essential (primary) hypertension (4) COPD (chronic obstructive pulmonary disease) COPD type: unspecified COPD
[2020-01-20] MEDS: ACETAMINOPHEN 500 MG TAB PO PRN (22:10)
[2020-01-21] MEDS: RANOLAZINE 500 MG ER TAB PO SCH ×2 (07:52→20:50)
[2020-01-21] MEDS: CLOPIDOGREL BISULFATE 75 MG TAB PO SCH (07:52)
[2020-01-21] MEDS: CITALOPRAM 20 MG TAB PO SCH (07:52)
[2020-01-21] MEDS: METOPROLOL TARTRATE 50 MG TAB PO SCH ×2 (07:52→20:50)
[2020-01-21] MEDS: IPRATROPIUM BROMIDE/ALBUTEROL respimat INH INH SCH ×2 (07:53→20:49)
[2020-01-21] MEDS: ROSUVASTATIN CALCIUM 20 MG TAB PO SCH (07:53)
[2020-01-21] MEDS: ASPIRIN 81 MG ECTAB PO SCH (07:53)
[2020-01-21 10:13] LABS: Hematocrit (blood only) 37.4 % (42-52); Hemoglobin 12.5 g/dL (14.0-18.0); Mean Corpuscular Hemoglobin 32.6 pg (25-34); Mean Corpuscular Hgb Conc 33.4 g/dL (32-36); Mean Corpuscular Volume 97.4 fL (80-100); Mean Platelet Volume 12.7 fL (7.4-10.4); Platelet Count 116 K/uL (130-400); RDW Coefficient of Variation 14.4 % (11.5-14.5); RDW Standard Deviation 51.5 fL (36.4-46.3); Red Blood Count 3.84 M/uL (4.7-6.1); White Blood Count 8.75 K/uL (4.8-10.8)
[2020-01-21 10:43] LABS: BUN Creatinine Ratio 19.2 (10-20); Calcium 9.9 mg/dl (8.5-10.1); Creatinine Clr Calc Pharmacy 33.5 ml/min; Est GFR (African American) 35.4; Est GFR (Non-African American) 30.6; Magnesium 1.9 mg/dl (1.8-2.4)
[2020-01-21] MEDS ORDERED: LACTATED RINGER'S 1,000 ML IV ONE (11:55)
[2020-01-21] MEDS: POTASSIUM CHLORIDE 20 MEQ TABCR PO SCH ×2 (12:25→20:51)
[2020-01-21] MEDS: POTASSIUM CHLORIDE / WTR 10 MEQ/100 ML PLCT IV SCH ×4 (12:25→17:10)
--- NOTE | 2020-01-21 14:18 | Hospitalist Progress Note ---
Date of Service January 21, 2020 Assessment & Plan (1) Chronic renal insufficiency: Baseline Cr ~1.5, eGFR 45. Grade III CKD. - Presently 1.34, so at/better than baseline - Monitor while on torsemide -> Worsened today. Now with acute kidney injury. Holding diuretic. Worsened again today despite fluids. Will give additional IV fluids and get nephrology consult. (2) Pancreatitis: Initial lipase was 2300 with coralating evidence on CT a/p on admission. - Was initially NPO with lactated ringer's IV fluids. - Now tolerarint diet with resolved lipase and no abdominal pain, nausea, or vomiting. - Seen by GI who posit drug-induced pancreatitis vs. anatomic abnormality. Plan for endoscopic ultrasound in 4-6 weeks. Stable in days prior to discharge. (3) Chronic ischemic heart disease: LV EF 50-55% on echo in 11/2019. - Continue ASA, Plavix, beta-redd, ranolazine, and statin - Started torsemide 20 mg PO daily on 01/18 (switched from furosemide for concern for it causing his pancreatitis), but caused SHARRON. - Stopped today. Given small IV fluid bolus again today. No indication of hypervolemia. (4) Fall: Likely multifactorial from acute illness, age, debility. - PT/OT entered on 01/18 -> Recommend rehab (5) Hypertension: BP is 150/70 today. - Continue home beta-redd - Restarted diuretic on 01/18, then held on 01/19. (6) Diastolic CHF: Chronic diastolic heart failure. - Restarted diuretic on 01/18 as he was no longer dehydrated, then held for kidney injury. (7) COPD (chronic obstructive pulmonary disease): At baseline, on no maintenance inhalers per med list. - DuoNebs PRN (8) Depression: - Continue citalopram (9) DVT prophylaxis: Heparin 5000 units BID Admission and Anticipated Discharge Date Admission Date: January 18, 2020 Subjective Feels well. No abdominal pain. Feels like his skin is a bit dry. Reports no fevers/chills, chest pain, shortness of breath, abdominal pain, nausea, or vomiting. Physical Exam Constitutional: WD/WN, vitals as above Eyes: EOM intact bilaterally; no conjunctival abnormality ENMT: external ear and nose normal, oropharynx normal Neck: trachea midline, no thyromegaly normal visual inspection Respiratory: normal respiratory effort, lungs clear to auscultation no respiratory distress Cardiovascular: RRR, no murmur, no edema Gastrointestinal (Abdomen): Inspection/Auscultation: abdomen normal to i nspection; abdomen not distended Musculoskeletal: no cyanosis or clubbing, extremities motor strength 5/5 Skin: no rashes, warm and dry Neurologic: moves all extremities and awake Psychiatric: Orientation: alert, oriented to person and cooperative Results & Data Results & Data ([facility]) Vital Signs (Past 12 Hours) Vital Signs Temp Pulse Resp BP Pulse Ox 01/21/20 07:59 65 01/21/20 07:27 36.6 C 56 L 16 142/79 H 95 PG Care Time/CCT Total # of Minutes Spent Total Time Spent with Patient: Total time spent is greater than 50% in coordination of care (as documented) at patient's floor/unit and/or counseling patient: Coding Level of Care Code 79858 Subseq Hosp Care Lvl 2 Diagnoses Chronic renal insufficiency N18.9 Pancreatitis K85.90 Acute pancreatitis complication: no infection or necrosis Chronicity: acute Pancreatitis type: unspecified pancreatitis type Chronic ischemic heart disease I25.9 Fall W19.XXXA Encounter type: initial encounter Hypertension I10 Hypertension type: essential hypertension Diastolic CHF I50.30 COPD (chronic obstructive pulmonary disease) J44.9 COPD type: unspecified COPD Depression F32.9 DVT prophylaxis Z29.9 (1) Pancreatitis Acute pancreatitis complication: no infection or necrosis Chronicity: acute Pancreatitis type: unspecified pancreatitis type Qualified Code(s): K85.90 - Acute pancreatitis without necrosis or infection, unspecified (2) Fall Encounter type: initial encounter Qualified Code(s): W19.XXXA - Unspecified fall, initial encounter (3) Hypertension Hypertension type: essential hypertension Qualified Code(s): I10 - Essential (primary) hypertension (4) COPD (chronic obstructive pulmonary disease) COPD type: unspecified COPD
[2020-01-22 08:02] LABS: Hematocrit (blood only) 37.5 % (42-52); Hemoglobin 12.4 g/dL (14.0-18.0); Mean Corpuscular Hemoglobin 32.7 pg (25-34); Mean Corpuscular Hgb Conc 33.1 g/dL (32-36); Mean Corpuscular Volume 98.9 fL (80-100); Mean Platelet Volume 12.6 fL (7.4-10.4); Platelet Count 130 K/uL (130-400); RDW Coefficient of Variation 14.4 % (11.5-14.5); RDW Standard Deviation 51.4 fL (36.4-46.3); Red Blood Count 3.79 M/uL (4.7-6.1); White Blood Count 9.69 K/uL (4.8-10.8)
[2020-01-22] MEDS: RANOLAZINE 500 MG ER TAB PO SCH ×2 (08:23→19:33)
[2020-01-22] MEDS: CITALOPRAM 20 MG TAB PO SCH (08:23)
[2020-01-22] MEDS: ASPIRIN 81 MG ECTAB PO SCH (08:24)
[2020-01-22] MEDS: ROSUVASTATIN CALCIUM 20 MG TAB PO SCH (08:24)
[2020-01-22] MEDS: METOPROLOL TARTRATE 50 MG TAB PO SCH ×2 (08:24→19:33)
[2020-01-22] MEDS: CLOPIDOGREL BISULFATE 75 MG TAB PO SCH (08:24)
[2020-01-22] MEDS: IPRATROPIUM BROMIDE/ALBUTEROL respimat INH INH SCH ×2 (08:24→19:33)
[2020-01-22 08:26] LABS: BUN Creatinine Ratio 20.4 (10-20); Calcium 10.6 mg/dl (8.5-10.1); Creatinine Clr Calc Pharmacy 40.8 ml/min; Est GFR (African American) 45.1; Est GFR (Non-African American) 38.9; Magnesium 2.1 mg/dl (1.8-2.4); Potassium 4.1 mmol/L (3.5-5.1)
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
--- NOTE | 2020-01-22 12:02 | Ultrasound Report ---
ULTRASOUND KIDNEYS AND BLADDER CLINICAL HISTORY: Chronic kidney disease. COMPARISON STUDY: Abdominal CT dated 01/18/2020. TECHNIQUE: Real-time, grayscale, and color flow sonography of the kidneys and bladder is performed. I mages are reviewed in the transverse and longitudinal planes. FINDINGS: Kidneys: The kidneys are atrophic and normal in echotexture. The right kidney measures 8.7 x 4.9 x 5. 1 cm and the left kidney measures 9.9 x 5.1 x 5.3 cm. There is no hydronephrosis. No shadowing renal calculi are identified. Left renal cysts measure up to 2.1 cm. There is no sonographic evidence of s olid renal mass lesion. No perinephric fluid is identified. Bladder: The bladder is decompressed and not well evaluated. Ureteral jets were not seen. IMPRESSION: 1. The kidneys are atrophic and without hydronephrosis. 2. The bladder was decompressed and not well evaluated. ACT 112: Negative or not required by law. Electronically signed by: Anjum Junior M.D. 01/22/2020 12:00 PM
[2020-01-22 12:36] LABS: Appearance Urine Clear (Clear); Bilirubin Urine Negative (Negative); Blood Urine Negative (Negative); Color Urine Yellow; Glucose Urine UA Negative (Negative); Ketones Urine Negative (Negative); Leukocyte Esterase Urine Negative (Negative); Nitrite Urine Negative (Negative); Protein Urine Negative (Negative); Urobilinogen Urine Negative (Negative); pH Urine 6.5 (4.5-7.5)
[2020-01-22] MEDS ORDERED: LACTATED RINGER'S 500 ML IV ONE (13:04)
--- NOTE | 2020-01-22 13:04 | Hospitalist Progress Note ---
Date of Service January 22, 2020 Assessment & Plan (1) Chronic renal insufficiency: Baseline Cr ~1.5, eGFR 45. Grade III CKD. - Presently 1.34, so at/better than baseline - Monitor while on torsemide -> Worsened on 01/19 with acute kidney injury. Held diuretic. Worsened next day despite fluids. - Gave additional IV fluids and got nephrology consult. * UA, renal u/s, monitor PRP (2) Pancreatitis: Initial lipase was 2300 with coralating evidence on CT a/p on admission. - Was initially NPO with lactated ringer's IV fluids. - Now tolerarint diet with resolved lipase and no abdominal pain, nausea, or vomiting. - Seen by GI who posit drug-induced pancreatitis vs. anatomic abnormality. Plan for endoscopic ultrasound in 4-6 weeks. Stable in days prior to discharge. (3) Chronic ischemic heart disease: LV EF 50-55% on echo in 11/2019. - Continue ASA, Plavix, beta-redd, ranolazine, and statin - Started torsemide 20 mg PO daily on 01/18 (switched from furosemide for concern for it causing his pancreatitis), but caused SHARRON. - No indication of hypervolemia. Will give small IV fluid bolus. (4) Fall: Likely multifactorial from acute illness, age, debility. - PT/OT entered on 01/18 -> Recommend rehab (5) Hypertension: BP is 150/70 today. - Continue home beta-redd - Restarted diuretic on 01/18, then held on 01/19 for SHARRON. (6) Diastolic CHF: Chronic diastolic heart failure. - Restarted diuretic on 01/18, then held for kidney injury. (7) COPD (chronic obstructive pulmonary disease): At baseline, on no maintenance inhalers per med list. - DuoNebs PRN (8) Depression: - Continue citalopram (9) DVT prophylaxis: Heparin 5000 units BID Admission and Anticipated Discharge Date Admission Date: January 18, 2020 Subjective Feels well today. Good appetite. Reports no fevers/chills, chest pain, shortness of breath, abdominal pain, nausea, or vomiting. Physical Exam Constitutional: WD/WN, vitals as above Eyes: EOM intact bilaterally; no conjunctival abnormality ENMT: external ear and nose normal, oropharynx normal Neck: trachea midline, no thyromegaly normal visual inspection Respiratory: normal respiratory effort, lungs clear to auscultation no respiratory distress Cardiovascular: RRR, no murmur, no edema Gastrointestinal (Abdomen): Inspection/Auscultation: abdomen normal to inspection; abdomen not distended Musculoskeletal: no cyanosis or clubbing, extremities motor strength 5/5 Skin: no rashes, warm and dry Neurologic: moves all extremities and awake Psychiatric: Orientation: alert, oriented to person and cooperative Results & Data Results & Data ([facility]) Vital Signs (Past 12 Hours) Vital Signs Temp Pulse Resp BP Pulse Ox 01/22/20 07:18 37.1 C 67 16 150/73 H 92 PG Care Time/CCT Total # of Minutes Spent Total Time Spent with Patient: Total time spent is greater than 50% in coordination of care (as documented) at patient's floor/unit and/or counseling patient: Coding Level of Care Code 24104 Subseq Hosp Care Lvl 2 Diagnoses Chronic renal insufficiency N18.9 Pancreatitis K85.90 Acute pancreatitis complication: no infection or necrosis Chronicity: acute Pancreatitis type: unspecified pancreatitis type Chronic ischemic heart disease I25.9 Fall W19.XXXA Encounter type: initial encounter Hypertension I10 Hypertension type: essential hypertension Diastolic CHF I50.30 COPD (chronic obstructive pulmonary disease) J44.9 COPD type: unspecified COPD Depression F32.9 DVT prophylaxis Z29.9 (1) Pancreatitis Acute pancreatitis complication: no infection or necrosis Chronicity: acute Pancreatitis type: unspecified pancreatitis type Qualified Code(s): K85.90 - Acute pancreatitis without necrosis or infection, unspecified (2) Fall Encounter type: initial encounter Qualified Code(s): W19.XXXA - Unspecified fall, initial encounter (3) Hypertension Hypertension type: essential hypertension Qualified Code(s): I10 - Essential (primary) hypertension (4) COPD (chronic obstructive pulmonary disease) COPD type: unspecified COPD
[2020-01-22 13:15] LABS: Protein Creatinine Ratio Urine 0.2 (0-0.2); Total Protein Urine Random 22.4 mg/dl (0-11.9)
[2020-01-23] MEDS: RANOLAZINE 500 MG ER TAB PO SCH ×2 (08:40→20:25)
[2020-01-23] MEDS: METOPROLOL TARTRATE 50 MG TAB PO SCH ×2 (08:40→20:26)
[2020-01-23] MEDS: CLOPIDOGREL BISULFATE 75 MG TAB PO SCH (08:40)
[2020-01-23] MEDS: ROSUVASTATIN CALCIUM 20 MG TAB PO SCH (08:41)
[2020-01-23] MEDS: CITALOPRAM 20 MG TAB PO SCH (08:41)
[2020-01-23] MEDS: ASPIRIN 81 MG ECTAB PO SCH (08:41)
[2020-01-23] MEDS: IPRATROPIUM BROMIDE/ALBUTEROL respimat INH INH SCH ×2 (08:41→20:25)
[2020-01-23 09:43] LABS: Hematocrit (blood only) 37.5 % (42-52); Hemoglobin 12.3 g/dL (14.0-18.0); Mean Corpuscular Hemoglobin 32.5 pg (25-34); Mean Corpuscular Hgb Conc 32.8 g/dL (32-36); Mean Corpuscular Volume 98.9 fL (80-100); Mean Platelet Volume 11.9 fL (7.4-10.4); Platelet Count 135 K/uL (130-400); RDW Coefficient of Variation 14.4 % (11.5-14.5); Red Blood Count 3.79 M/uL (4.7-6.1); White Blood Count 9.04 K/uL (4.8-10.8)
--- NOTE | 2020-01-23 10:04 | Nephrology Progress Note ---
Date of Service January 23, 2020 Assessment & Plan (1) Chronic kidney disease: * Baseline Cr has been 1.7 - 2.0. Awaiting am labs. Urine sediment is acellular. Abdominal CT shows renal cortical thinning c/w microvascular disease * Urinalysis is acellular. UPCR was 0.2 * Renal US 01/15: R 8.7cm, L 9.9cm. Cortical thinning c/w microvascular disease. No hydronephrosis, stone or mass * Monitor PRP (2) Hypertension: * BP has been variable but reasonable. Continue Metoprolol therapy * If BP trends up could consider adding low dose NESTOR inhibitor (3) Hypercalcemia: * Mild hypercalcemia. Had been on vitamin D as outpatient. Continue to hold vitamin D * Vitamin D & PTH levels are pending (4) Pancreatitis: * Heplock IV once patient tolerating diet Admission and Anticipated Discharge Date Admission Date: January 18, 2020 Subjective Mr. Kennedy was seen & examined in his hospital room this morning. He reports that his abdominal discomfort has resolved. He is tolerating his diet and voices no new medical concerns. Review of Systems Constitutional: no fever Eyes: no problem reported Ear, Nose, Mouth, Throat: no problem reported Respiratory: no cough and no dyspnea Cardiovascular: no chest pain and no edema Gastrointestinal: no abdominal pain, no nausea, no vomiting and no diarrhea/loose stools Genitourinary: no dysuria, no urinary hesitancy and no hematuria Musculoskeletal: no back pain Integumentary: no rash Neurologic: no falls, no dizziness and no confusion Physical Exam Constitutional: not in distress Eyes: PERRL, conjunctivae normal, anicteric sclerae ENMT: external ear and nose normal, oropharynx normal Neck: trachea midline, no thyromegaly Respiratory: normal respiratory effort, lungs clear to auscultation Cardiovascular: RRR, no murmur, no edema Gastrointestinal (Abdomen): normal bowel sounds, soft, nontender, no hepatosplenomegaly Musculoskeletal: Extremities: no cyanosis Skin: no rashes, warm and dry Neurologic: awake; not confused Results & Data ([facility]) Vital Signs (Past 12 Hours) Vital Signs Temp Pulse Resp BP BP Pulse Ox 01/23/20 08:40 68 01/23/20 07:07 36.8 C 59 L 16 131/67 90 01/22/20 23:53 37.0 C 74 16 165/88 H 97 Laboratory Tests 01/23/20 01/23/20 09:09 09:09 WBC 9.04 Hgb 12.3 L Hct 37.5 L Plt Count 135 Sodium Pending Potassium Pending Chloride Pending Carbon Dioxide Pending Anion Gap Pending BUN Pending Creatinine Pending Glucose Pending Calcium Pending Magnesium Pending Laboratory Tests 01/23/20 01/23/20 09:09 09:09 25-OH Vitamin D Total Pending PTH Intact Pending PG Care Time/CCT Total # of Minutes Spent Total Time Spent with Patient: Total time spent is greater than 50% in coordination of care (as documented) at patient's floor/unit and/or counseling patient: Coding Level of Care Code 53410 Subseq Hosp Care Lvl 3 Diagnoses Chronic kidney disease N18.9 Hypertension I10 Hypertension type: essential hypertension Hypercalcemia E83.52 Pancreatitis K85.90 Acute pancreatitis complication: no infection or necrosis Chronicity: acute Pancreatitis type: unspecified pancreatitis type (1) Hypertension Hypertension type: essential hypertension Qualified Code(s): I10 - Essential (primary) hypertension (2) Pancreatitis Acute pancreatitis complication: no infection or necrosis Chronicity: acute Pancreatitis type: unspecified pancreatitis type Qualified Code(s): K85.90 - Acute pancreatitis without necrosis or infection, unspecified
[2020-01-23 10:30] LABS: BUN Creatinine Ratio 19.4 (10-20); Calcium 10.5 mg/dl (8.5-10.1); Creatinine Clr Calc Pharmacy 42.7 ml/min; Est GFR (African American) 47.6; Magnesium 2.2 mg/dl (1.8-2.4); Potassium 4.4 mmol/L (3.5-5.1)
--- NOTE | 2020-01-23 22:40 | Hospitalist Progress Note ---
Date of Service January 23, 2020 Assessment & Plan (1) Chronic renal insufficiency: Baseline Cr ~1.5, eGFR 45. Grade III CKD. - Presently 1.56, so at/better than baseline - Monitored on torsemide -> Worsened on 01/19 with acute kidney injury. Held diuretic. Worsened next day despite fluids. - Gave additional IV fluids and got nephrology consult. * UA, renal u/s, monitor PRP (2) Pancreatitis: Initial lipase was 2300 with coralating evidence on CT a/p on admission. - Was initially NPO with lactated ringer's IV fluids. - Now toleraring diet with resolved lipase and no abdominal pain, nausea, or vomiting. - Seen by GI who posit drug-induced pancreatitis vs. anatomic abnormality. Plan for endoscopic ultrasound in 4-6 weeks. Stable in days prior to discharge. (3) Chronic ischemic heart disease: LV EF 50-55% on echo in 11/2019. - Continue ASA, Plavix, beta-redd, ranolazine, and statin - Started torsemide 20 mg PO daily on 01/18 (switched from furosemide for concern for it causing his pancreatitis), but caused SHARRON. - No indication of hypervolemia. Will give small IV fluid bolus. (4) Fall: Likely multifactorial from acute illness, age, debility. - PT/OT entered on 01/18 -> Recommend rehab (5) Hypertension: BP is controlled. - Continue home beta-redd - Restarted diuretic on 01/18, then held on 01/19 for SHARRON. (6) Diastolic CHF: Chronic diastolic heart failure. - Restarted diuretic on 01/18, then held for kidney injury. (7) COPD (chronic obstructive pulmonary disease): At baseline, on no maintenance inhalers per med list. - DuoNebs PRN (8) Depression: - Continue citalopram (9) DVT prophylaxis: Heparin 5000 units BID Admission and Anticipated Discharge Date Admission Date: January 18, 2020 Subjective 79 yo male reports feeling well. He has no new complaints Review of Systems Review of Systems: All systems reviewed & are unremarkable except as noted in HPI & below Physical Exam Physical Exam: Constitutional: WD/WN, vitals as above Eyes: EOM intact bilaterally; no conjunctival abnormality ENMT: external ear and nose normal, oropharynx normal Neck: trachea midline, no thyromegaly normal visual inspection Respiratory: normal respiratory effort, lungs clear to auscultation no respiratory distress Cardiovascular: RRR, no murmur, no edema Gastrointestinal (Abdomen): Inspection/Auscultation: abdomen normal to inspection; abdomen not distended Musculoskeletal: no cyanosis or clubbing, extremities motor strength 5/5 Skin: no rashes, warm and dry Neurologic: moves all extremities and awake Psychiatric: Orientation: alert, oriented to person and cooperative Results & Data Results & Data ([facility]) Vital Signs (Past 12 Hours) Vital Signs Temp Pulse Resp BP BP Pulse Ox 01/23/20 20:20 36.8 C 62 20 106/64 93 01/23/20 15:33 36.9 C 60 18 122/68 93 PG Care Time/CCT Total # of Minutes Spent Total Time Spent with Patient: Total time spent is greater than 50% in coordination of care (as documented) at patient's floor/unit and/or counseling patient: Coding Level of Care Code 07919 Subseq Hosp Care Lvl 3 Diagnoses Chronic renal insufficiency N18.9 Pancreatitis K85.90 Acute pancreatitis complication: no infection or necrosis Chronicity: acute Pancreatitis type: unspecified pancreatitis type Chronic ischemic heart disease I25.9 Fall W19.XXXA Encounter type: initial encounter Hypertension I10 Hypertension type: essential hypertension Diastolic CHF I50.30 COPD (chronic obstructive pulmonary disease) J44.9 COPD type: unspecified COPD Depression F32.9 DVT prophylaxis Z29.9 Time Spent (min) 35 (1) Pancreatitis Acute pancreatitis complication: no infection or necrosis Chronicity: acute Pancreatitis type: unspecified pancreatitis type Qualified Code(s): K85.90 - Acute pancreatitis without necrosis or infection, unspecified (2) COPD (chronic obstructive pulmonary disease) COPD type: unspecified COPD (3) Hypertension Hypertension type: essential hypertension Qualified Code(s): I10 - Essential (primary) hypertension (4) Fall Encounter type: initial encounter Qualified Code(s): W19.XXXA - Unspecified fall, initial encounter
[2020-01-24] MEDS: RANOLAZINE 500 MG ER TAB PO SCH ×2 (09:58→20:54)
[2020-01-24] MEDS: CITALOPRAM 20 MG TAB PO SCH (09:58)
[2020-01-24] MEDS: ROSUVASTATIN CALCIUM 20 MG TAB PO SCH (09:59)
[2020-01-24] MEDS: CLOPIDOGREL BISULFATE 75 MG TAB PO SCH (09:59)
[2020-01-24] MEDS: ASPIRIN 81 MG ECTAB PO SCH (09:59)
[2020-01-24] MEDS: IPRATROPIUM BROMIDE/ALBUTEROL respimat INH INH SCH ×2 (10:01→20:54)
[2020-01-24] MEDS: METOPROLOL TARTRATE 50 MG TAB PO SCH ×2 (10:02→20:54)
[2020-01-24 10:55] LABS: BUN Creatinine Ratio 16.6 (10-20); Creatinine Clr Calc Pharmacy 40.1 ml/min; Est GFR (African American) 44.1; Est GFR (Non-African American) 38.1; Potassium 4.4 mmol/L (3.5-5.1)
--- NOTE | 2020-01-24 11:08 | Nephrology Progress Note ---
Date of Service January 24, 2020 Assessment & Plan (1) Chronic kidney disease: * Baseline Cr has been 1.7 - 2.0 * Abdominal CT shows renal cortical thinning c/w microvascular disease * Urinalysis is acellular. UPCR was 0.2 * Renal US 01/15: R 8.7cm, L 9.9cm. Cortical thinning c/w microvascular d isease. No hydronephrosis, stone or mass * Stable kidney function. No further Nephrology evaluation indicated at this time. Will sign off. Please call if further assistance is needed. Recommend ongoing monitoring of kidney function on biannual basis by PCP following discharge from hospital (2) Hypertension: * BP has been variable but reasonable. Continue Metoprolol therapy * If BP trends up could consider adding low dose NESTOR inhibitor (3) Pancreatitis: * Heplock IV once patient tolerating diet Admission and Anticipated Discharge Date Admission Date: January 18, 2020 Subjective Mr. Kennedy was seen & examined in his hospital room this morning. He reports that his abdominal discomfort has resolved. He is tolerating his diet and voices no new medical concerns. Review of Systems Constitutional: no fever and no weakness Eyes: no problem reported Ear, Nose, Mouth, Throat: no problem reported Respiratory: no cough and no dyspnea Cardiovascular: no chest pain and no edema Gastrointestinal: no abdominal pain and no diarrhea/loose stools Genitourinary: no dysuria, no urinary hesitancy and no hematuria Musculoskeletal: no back pain Integumentary: no rash Neurologic: no falls and no confusion Physical Exam Constitutional: not in distress Eyes: PERRL, conjunctivae normal, anicteric sclerae ENMT: external ear and nose normal, oropharynx normal Neck: trachea midline, no thyromegaly Respiratory: normal respiratory effort, lungs clear to auscultation Cardiovascular: RRR, no murmur, no edema Gastrointestinal (Abdomen): normal bowel sounds, soft, nontender, no hepatosplenomegaly Musculoskeletal: Extremities: no cyanosis Skin: no rashes, warm and dry Neurologic: awake; not confused Results & Data ([facility]) Vital Signs (Past 12 Hours) Vital Signs Temp Pulse Resp BP Pulse Ox 01/24/20 07:46 36.5 C 60 18 123/72 96 01/23/20 23:44 37.0 C 60 16 113/57 L 95 Laboratory Results Laboratory Tests 01/24/20 10:09 Sodium 140 Potassium 4.4 Chloride 109 H Carbon Dioxide 28 BUN 28 H Creatinine 1.66 H Glucose 183 H Calcium 10.0 PG Care Time/CCT Total # of Minutes Spent Total Time Spent with Patient: Total time spent is greater than 50% in coordination of care (as documented) at patient's floor/unit and/or counseling patient: Coding Level of Care Code 82168 Subseq Hosp Care Lvl 3 Diagnoses Chronic kidney disease N18.9 Hypertension I10 Hypertension type: essential hypertension Pancreatitis K85.90 Acute pancreatitis complication: no infection or necrosis Chronicity: acute Pancreatitis type: unspecified pancreatitis type (1) Hypertension Hypertension type: essential hypertension Qualified Code(s): I10 - Essential (primary) hypertension (2) Pancreatitis Acute pancreatitis complication: no infection or necrosis Chronicity: acute Pancreatitis type: unspecified pancreatitis type Qualified Code(s): K85.90 - Acute pancreatitis without necrosis or infection, unspecified
[2020-01-24] MEDS ORDERED: XYLOCAINE 1%/SOD BICARB 20 ML VIAL INFIL ONE ×2 (17:14→17:28)
--- NOTE | 2020-01-24 18:23 | Emergency Department Note ---
ED Visit Note Patient sustained a fall during his admission. I was asked to perform wound repair to the left upper lip laceration. This does not violate the vermilion border. This is 1.5 cm in length. It is not communicating to any intraoral lesion. Consent was obtained from the patient. Risks and benefits of performing primary wound closure versus no repair were discussed with the patient who verbalizes understanding. Verbal consent was obtained prior to performing the procedure. 3.5 cc of 1% buffered lidocaine without epinephrine was used to anesthetize the 1.5cm laceration. I did trim the facial hair to help better approximate the wound. The wound was cleansed and prepped in the typical sterile fashion utilizing normal saline and Betadine. The wound was sterilely draped. Once proper anesthetization was established, the wound was further examined and demonstrated a laceration that creates a "n" in regard to shape and trajectory of the wound. The wound was copiously irrigated with normal saline and Betadine. The wound was closed using 4 simple, 6-0 nylon sutures with the wound edges being well approximated. Patient tolerated the procedure well. No complications were met. The superiormost aspect of the wound does have very thin skin/tissue that will likely turn into a scab however there was healthy tissue deep to this area. The wound was cleansed and dressed with a Bacitracin dressing. The patient then noted he felt some bleeding in the mouth and he did remove the upper dentures and there was a small, what appeared to be 2 cm in length non-gaping intraoral laceration just posterior to the area where the left superior posterior molar would be, within in the mucosa. I spoke with Dr. Garcia, attending physician for the patient regarding the repair as well as the intraoral small laceration/injury. . : Pancreatitis Qualifiers: Chronicity: acute Pancreatitis type: unspecified pancreatitis type Acute pancreatitis complication: no infection or necrosis Qualified Code(s): K85.90 - Acute pancreatitis without necrosis or infection, unspecified Hypertension Qualifiers: Hypertension type: essential hypertension Qualified Code(s): I10 - Essential (primary) hypertension Abdominal aortic aneurysm Qualifiers: Presence of rupture: without rupture Qualified Code(s): I71.4 - Abdominal aortic aneurysm, without rupture Fall Qualifiers: Encounter type: initial encounter Qualified Code(s): W19.XXXA - Unspecified fall, initial encounter CHI (closed head injury) Qualifiers: Encounter type: initial encounter Qualified Code(s): S09.90XA - Unspecified injury of head, initial encounter
--- NOTE | 2020-01-24 18:53 | CT Scan Report ---
CT head/brain wo con CLINICAL HISTORY: 79 years-old Male with fall. Acute head injury status post fall TECHNIQUE: Multiple axial CT images of the head were obtained without contrast. A dose lowering tech nique was utilized adhering to the principles of ALARA. CT DOSE: 614.27 mGy.cm COMPARISON: Head CT 01/18/2020 FINDINGS: No acute intracranial hemorrhage, midline shift, intracranial mass, hydrocephalus, territorial ischem ia or abnormal extra-axial collection. Age-related involutional changes with ex vacuo ventriculomegal y. Extensive patchy white matter hypodensities suggest chronic microvascular ischemic disease. Remote lacunar infarcts of the basal ganglia. Cerebral vascular calcifications. The calvarium is intact. Po stoperative changes of the maxilla, frontal and nasal bones. Prior bilateral lens replacement. The pa ranasal sinuses, mastoid air cells, and middle ear cavities are clear. IMPRESSION: No acute intracranial abnormality or calvarial fracture. ACT 112: Negative or not required by law. The above report was generated using voice recognition software. It may contain grammatical, syntax o r spelling errors. Electronically signed by: Terence Hough M.D. 01/24/2020 6:52 PM
--- NOTE | 2020-01-24 23:05 | Hospitalist Progress Note ---
Date of Service January 24, 2020 Assessment & Plan (1) Chronic renal insufficiency: Baseline Cr ~1.5, eGFR 45. Grade III CKD. - Presently 1.66,will recheck in AM. - Monitored on torsemide -> Worsened on 01/19 with acute kidney injury. Held diuretic. Worsened next day despite fluids. - Gave additional IV fluids and got nephrology consult. * UA, renal u/s, monitor PRP (2) Pancreatitis: Initial lipase was 2300 with coralating evidence on CT a/p on admission. - Was initially NPO with lactated ringer's IV fluids. - Now toleraring diet with resolved lipase and no abdominal pain, nausea, or vomiting. - Seen by GI who posit drug-induced pancreatitis vs. anatomic abnormality. Plan for endoscopic ultrasound in 4-6 weeks. Stable in days prior to discharge. (3) Chronic ischemic heart disease: LV EF 50-55% on echo in 11/2019. - Continue ASA, Plavix, beta-redd, ranolazine, and statin - Started torsemide 20 mg PO daily on 01/18 (switched from furosemide for concern for it causing his pancreatitis), but caused SHARRON. - No indication of hypervolemia. Will give small IV fluid bolus. (4) Fall: Likely multifactorial from acute illness, age, debility. - PT/OT entered on 01/18 -> Recommend rehab Patient had another fall on 01/23 which required stiches. Patient also has a small cut behind left molar. Appears this will heal on its own. Nursing staff informed family. Patient again redirected to call nursing staff if he wants to stand up. Call yanes in reach. will order ct scan of head. (5) Hypertension: BP is controlled. - Continue home beta-redd - Restarted diuretic on 01/18, then held on 01/19 for SHARRON. (6) Diastolic CHF: Chronic diastolic heart failure. - Restarted diuretic on 01/18, then held for kidney injury. (7) COPD (chronic obstructive pulmonary disease): At baseline, on no maintenance inhalers per med list. - DuoNebs PRN (8) Depression: - Continue citalopram (9) DVT prophylaxis: Heparin 5000 units BID Admission and Anticipated Discharge Date Admission Date: January 18, 2020 Subjective 79 yo male had a fall today. He stood up without supervision and went to the bathroom. He felt weak and fell and hit his face against the wall. He had urinated on the ground and had lacerated his lip. He called for help and was placed back in the chair. Review of Systems Review of Systems: All systems reviewed & are unremarkable except as noted in HPI & below Physical Exam Physical Exam: Constitutional: WD/WN, vitals as above Eyes: EOM intact bilaterally; no conjunctival abnormality ENMT: external ear and nose normal, oropharynx normal, laceration to upper lip, and Neck: trachea midline, no thyromegaly normal visual inspection Respiratory: normal respiratory effort, lungs clear to auscultation no respiratory distress Cardiovascular: RRR, no murmur, no edema Gastrointestinal (Abdomen): Inspection/Auscultation: abdomen normal to inspection; abdomen not distended Musculoskeletal: no cyanosis or clubbing, extremities motor strength 5/5 Skin: no rashes, warm and dry Neurologic: moves all extremities and awake Psychiatric: Orientation: alert, oriented to person and cooperative Results & Data Results & Data ([facility]) Vital Signs (Past 12 Hours) Vital Signs Temp Pulse Resp BP Pulse Ox 01/24/20 16:26 36.4 C L 76 18 127/73 94 PG Care Time/CCT Total # of Minutes Spent Total Time Spent with Patient: Total time spent is greater than 50% in coordination of care (as documented) at patient's floor/unit and/or counseling patient: Coding Level of Care Code 00161 Subseq Hosp Care Lvl 3 Diagnoses Chronic renal insufficiency N18.9 Pancreatitis K85.90 Acute pancreatitis complication: no infection or necrosis Chronicity: acute Pancreatitis type: unspecified pancreatitis type Chronic ischemic heart disease I25.9 Fall W19.XXXA Encounter type: initial encounter Hypertension I10 Hypertension type: essential hypertension Diastolic CHF I50.30 COPD (chronic obstructive pulmonary disease) J44.9 COPD type: unspecified COPD Depression F32.9 DVT prophylaxis Z29.9 Time Spent (min) 35 (1) Pancreatitis Acute pancreatitis complication: no infection or necrosis Chronicity: acute Pancreatitis type: unspecified pancreatitis type Qualified Code(s): K85.90 - Acute pancreatitis without necrosis or infection, unspecified (2) COPD (chronic obstructive pulmonary disease) COPD type: unspecified COPD (3) Hypertension Hypertension type: essential hypertension Qualified Code(s): I10 - Essential (primary) hypertension (4) Fall Encounter type: initial encounter Qualified Code(s): W19.XXXA - Unspecified fall, initial encounter
[2020-01-25] MEDS: RANOLAZINE 500 MG ER TAB PO SCH ×2 (10:53→21:09)
[2020-01-25] MEDS: ASPIRIN 81 MG ECTAB PO SCH (10:54)
[2020-01-25] MEDS: CITALOPRAM 20 MG TAB PO SCH (10:54)
[2020-01-25] MEDS: ROSUVASTATIN CALCIUM 20 MG TAB PO SCH (10:54)
[2020-01-25] MEDS: CLOPIDOGREL BISULFATE 75 MG TAB PO SCH (10:55)
[2020-01-25] MEDS: IPRATROPIUM BROMIDE/ALBUTEROL respimat INH INH SCH ×2 (10:55→21:09)
[2020-01-25] MEDS: METOPROLOL TARTRATE 50 MG TAB PO SCH ×2 (10:55→21:09)
[2020-01-25 12:13] LABS: Hematocrit (blood only) 40.1 % (42-52); Hemoglobin 13.1 g/dL (14.0-18.0); Mean Corpuscular Hemoglobin 32.7 pg (25-34); Mean Corpuscular Hgb Conc 32.7 g/dL (32-36); Mean Platelet Volume 12.1 fL (7.4-10.4); Platelet Count 164 K/uL (130-400); RDW Coefficient of Variation 14.4 % (11.5-14.5); RDW Standard Deviation 52.6 fL (36.4-46.3); Red Blood Count 4.01 M/uL (4.7-6.1); White Blood Count 10.77 K/uL (4.8-10.8)
[2020-01-25 12:18] LABS: BUN Creatinine Ratio 16.1 (10-20); Calcium 10.3 mg/dl (8.5-10.1); Creatinine Clr Calc Pharmacy 42.7 ml/min; Est GFR (African American) 47.6; Potassium 4.6 mmol/L (3.5-5.1)
[2020-01-25] MEDS: ACETAMINOPHEN 500 MG TAB PO PRN (17:04)
--- NOTE | 2020-01-25 23:00 | Hospitalist Progress Note ---
Date of Service January 25, 2020 Assessment & Plan (1) Chronic renal insufficiency: Baseline Cr ~1.5, eGFR 45. Grade III CKD. - Presently 1.66,will recheck in AM. - Monitored on torsemide -> Worsened on 01/19 with acute kidney injury. Held diuretic. Worsened next day despite fluids. - Gave additional IV fluids and got nephrology consult. * UA, renal u/s, monitor PRP (2) Pancreatitis: Initial lipase was 2300 with coralating evidence on CT a/p on admission. - Was initially NPO with lactated ringer's IV fluids. - Now toleraring diet with resolved lipase and no abdominal pain, nausea, or vomiting. - Seen by GI who posit drug-induced pancreatitis vs. anatomic abnormality. Plan for endoscopic ultrasound in 4-6 weeks. Stable in days prior to discharge. (3) Chronic ischemic heart disease: LV EF 50-55% on echo in 11/2019. - Continue ASA, Plavix, beta-redd, ranolazine, and statin - Started torsemide 20 mg PO daily on 01/18 (switched from furosemide for concern for it causing his pancreatitis), but caused SHARRON. - No indication of hypervolemia. Will give small IV fluid bolus. (4) Fall: Likely multifactorial from acute illness, age, debility. - PT/OT entered on 01/18 -> Recommend rehab Patient had another fall on 01/23 which required stiches. Patient also has a small cut behind left molar. Appears this will heal on its own. Nursing staff informed family. Patient again redirected to call nursing staff if he wants to stand up. Call yanes in reach. will order ct scan of head. I do not feel patient is safe to go home due to recurrent falls. (5) Hypertension: BP is controlled. - Continue home beta-redd - Restarted diuretic on 01/18, then held on 01/19 for SHARRON. (6) Diastolic CHF: Chronic diastolic heart failure. - Restarted diuretic on 01/18, then held for kidney injury. (7) COPD (chronic obstructive pulmonary disease): At baseline, on no maintenance inhalers per med list. - DuoNebs PRN (8) Depression: - Continue citalopram (9) DVT prophylaxis: Heparin 5000 units BID Admission and Anticipated Discharge Date Admission Date: January 18, 2020 Subjective 79 yo male reports no new symptoms today. D/W nursing, his bed was moved. Review of Systems Review of Systems: All systems reviewed & are unremarkable except as noted in HPI & below Physical Exam Physical Exam: Constitutional: WD/WN, vitals as above Eyes: EOM intact bilaterally; no conjunctival abnormality ENMT: external ear and nose normal, oropharynx normal, laceration to upper lip, and Neck: trachea midline, no thyromegaly normal visual inspection Respiratory: normal respiratory effort, lungs clear to auscultation no respiratory distress Cardiovascular: RRR, no murmur, no edema Gastrointestinal (Abdomen): Inspection/Auscultation: abdomen normal to inspection; abdomen not distended Musculoskeletal: no cyanosis or clubbing, extremities motor strength 5/5 Skin: no rashes, warm and dry Neurologic: moves all extremities and awake Psychiatric: Orientation: alert, oriented to person and cooperative Results & Data Results & Data ([facility]) Vital Signs (Past 12 Hours) Vital Signs Temp Pulse Resp BP Pulse Ox 01/25/20 21:02 65 134/65 01/25/20 16:00 36.6 C 60 18 126/74 98 PG Care Time/CCT Total # of Minutes Spent Total Time Spent with Patient: Total time spent is greater than 50% in coordination of care (as documented) at patient's floor/unit and/or counseling patient: Coding Level of Care Code 64201 Subseq Hosp Care Lvl 2 Diagnoses Chronic renal insufficiency N18.9 Pancreatitis K85.90 Acute pancreatitis complication: no infection or necrosis Chronicity: acute Pancreatitis type: unspecified pancreatitis type Chronic ischemic heart disease I25.9 Fall W19.XXXA Encounter type: initial encounter Hypertension I10 Hypertension type: essential hypertension Diastolic CHF I50.30 COPD (chronic obstructive pulmonary disease) J44.9 COPD type: unspecified COPD Depression F32.9 DVT prophylaxis Z29.9 Time Spent (min) 25 (1) Pancreatitis Acute pancreatitis complication: no infection or necrosis Chronicity: acute Pancreatitis type: unspecified pancreatitis type Qualified Code(s): K85.90 - Acute pancreatitis without necrosis or infection, unspecified (2) COPD (chronic obstructive pulmonary disease) COPD type: unspecified COPD (3) Hypertension Hypertension type: essential hypertension Qualified Code(s): I10 - Essential (primary) hypertension (4) Fall Encounter type: initial encounter Qualified Code(s): W19.XXXA - Unspecified fall, initial encounter
[2020-01-26] MEDS: CLOPIDOGREL BISULFATE 75 MG TAB PO SCH (09:12)
[2020-01-26] MEDS: ROSUVASTATIN CALCIUM 20 MG TAB PO SCH (09:12)
[2020-01-26] MEDS: RANOLAZINE 500 MG ER TAB PO SCH ×2 (09:12→21:12)
[2020-01-26] MEDS: ASPIRIN 81 MG ECTAB PO SCH (09:12)
[2020-01-26] MEDS: CITALOPRAM 20 MG TAB PO SCH (09:13)
[2020-01-26] MEDS: IPRATROPIUM BROMIDE/ALBUTEROL respimat INH INH SCH ×2 (09:13→21:11)
[2020-01-26] MEDS: METOPROLOL TARTRATE 50 MG TAB PO SCH ×2 (09:17→21:13)
[2020-01-26] MEDS: ACETAMINOPHEN 500 MG TAB PO PRN (22:15)
--- NOTE | 2020-01-26 23:10 | Hospitalist Progress Note ---
Date of Service January 26, 2020 Assessment & Plan (1) Chronic renal insufficiency: Baseline Cr ~1.5, eGFR 45. Grade III CKD. - Presently 1.56, will recheck in AM. - Monitored on torsemide -> Worsened on 01/19 with acute kidney injury. Held diuretic. Worsened next day despite fluids. - Gave additional IV fluids and got nephrology consult. * UA, renal u/s, monitor PRP (2) Pancreatitis: Initial lipase was 2300 with coralating evidence on CT a/p on admission. - Was initially NPO with lactated ringer's IV fluids. - Now toleraring diet with resolved lipase and no abdominal pain, nausea, or vomiting. - Seen by GI who posit drug-induced pancreatitis vs. anatomic abnormality. Plan for endoscopic ultrasound in 4-6 weeks. Stable in days prior to discharge. (3) Chronic ischemic heart disease: LV EF 50-55% on echo in 11/2019. - Continue ASA, Plavix, beta-redd, ranolazine, and statin - Started torsemide 20 mg PO daily on 01/18 (switched from furosemide for concern for it causing his pancreatitis), but caused SHARRON. - No indication of hypervolemia. Will give small IV fluid bolus. (4) Fall: Likely multifactorial from acute illness, age, debility. - PT/OT entered on 01/18 -> Recommend rehab Patient had another fall on 01/23 which required stiches. Patient also has a small cut behind left molar. Appears this will heal on its own. Nursing staff informed family. Patient again redirected to call nursing staff if he wants to stand up. Call yanes in reach. will order ct scan of head: was negative. I do not feel patient is safe to go home due to recurrent falls. (5) Hypertension: BP is controlled. - Continue home beta-redd - Restarted diuretic on 01/18, then held on 01/19 for SHARRON. (6) Diastolic CHF: Chronic diastolic heart failure. - Restarted diuretic on 01/18, then held for kidney injury. (7) COPD (chronic obstructive pulmonary disease): At baseline, on no maintenance inhalers per med list. - DuoNebs PRN (8) Depression: - Continue citalopram (9) DVT prophylaxis: Heparin 5000 units BID Admission and Anticipated Discharge Date Admission Date: January 18, 2020 Subjective 79 yo male reports no new symptoms today. Review of Systems Review of Systems: All systems reviewed & are unremarkable except as noted in HPI & below Physical Exam Physical Exam: Constitutional: WD/WN, vitals as above Eyes: EOM intact bilaterally; no conjunctival abnormality ENMT: external ear and nose normal, oropharynx normal, laceration to upper lip, and Neck: trachea midline, no thyromegaly normal visual inspection Respiratory: normal respiratory effort, lungs clear to auscultation no respiratory distress Cardiovascular: RRR, no murmur, no edema Gastrointestinal (Abdomen): Inspection/Auscultation: abdomen normal to inspection; abdomen not distended Musculoskeletal: no cyanosis or clubbing, extremities motor strength 5/5 Skin: no rashes, warm and dry Neurologic: moves all extremities and awake Psychiatric: Orientation: alert, oriented to person and cooperative Results & Data Results & Data ([facility]) Vital Signs (Past 12 Hours) Vital Signs Temp Pulse Resp BP BP Pulse Ox 01/26/20 21:16 70 135/66 01/26/20 15:07 36.8 C 75 16 129/74 94 PG Care Time/CCT Total # of Minutes Spent Total Time Spent with Patient: Total time spent is greater than 50% in coordination of care (as documented) at patient's floor/unit and/or counseling patient: Coding Level of Care Code 69005 Subseq Hosp Care Lvl 2 Diagnoses Chronic renal insufficiency N18.9 Pancreatitis K85.90 Acute pancreatitis complication: no infection or necrosis Chronicity: acute Pancreatitis type: unspecified pancreatitis type Chronic ischemic heart disease I25.9 Fall W19.XXXA Encounter type: initial encounter Hypertension I10 Hypertension type: essential hypertension Diastolic CHF I50.30 COPD (chronic obstructive pulmonary disease) J44.9 COPD type: unspecified COPD Depression F32.9 DVT prophylaxis Z29.9 Time Spent (min) 25 (1) Pancreatitis Acute pancreatitis complication: no infection or necrosis Chronicity: acute Pancreatitis type: unspecified pancreatitis type Qualified Code(s): K85.90 - Acute pancreatitis without necrosis or infection, unspecified (2) COPD (chronic obstructive pulmonary disease) COPD type: unspecified COPD (3) Hypertension Hypertension type: essential hypertension Qualified Code(s): I10 - Essential (primary) hypertension (4) Fall Encounter type: initial encounter Qualified Code(s): W19.XXXA - Unspecified fall, initial encounter
[2020-01-27] MEDS: IPRATROPIUM BROMIDE/ALBUTEROL respimat INH INH SCH (08:03)
[2020-01-27] MEDS: METOPROLOL TARTRATE 50 MG TAB PO SCH (08:04)
[2020-01-27] MEDS: CITALOPRAM 20 MG TAB PO SCH (08:04)
[2020-01-27] MEDS: RANOLAZINE 500 MG ER TAB PO SCH (08:04)
[2020-01-27] MEDS: ROSUVASTATIN CALCIUM 20 MG TAB PO SCH (08:04)
[2020-01-27] MEDS: CLOPIDOGREL BISULFATE 75 MG TAB PO SCH (08:04)
[2020-01-27] MEDS: ASPIRIN 81 MG ECTAB PO SCH (08:04)
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
== END 2020-01-27 11:42 | DRG 439 ==
LOC: ED 23:37 → SUATTDRO 01-18 02:26 → 2E 01-18 02:26 → INTOOBSV 01-18 02:26 → 2E 01-18 02:56 → 2N 01-19 15:20 → 3W 01-22 12:19
DX: W19.XXXA Unspecified fall, initial encounter; F32.9 Major depressive disorder, single episode, unspecified; K85.90 Acute pancreatitis without necrosis or infection, unspecified; N18.3 Chronic kidney disease, stage 3 (moderate); M19.90 Unspecified osteoarthritis, unspecified site; I50.32 Chronic diastolic (congestive) heart failure; Z79.82 Long term (current) use of aspirin; Z95.0 Presence of cardiac pacemaker; Z79.899 Other long term (current) drug therapy; Z86.73 Personal history of transient ischemic attack (TIA), and cerebral infarction without residual deficits; I13.0 Hypertensive heart and chronic kidney disease with heart failure and stage 1 through stage 4 chronic kidney disease, or unspecified chronic kidney disease; I25.9 Chronic ischemic heart disease, unspecified; E83.52 Hypercalcemia; E78.5 Hyperlipidemia, unspecified; Z79.02 Long term (current) use of antithrombotics/antiplatelets; K21.9 Gastro-esophageal reflux disease without esophagitis; J44.9 Chronic obstructive pulmonary disease, unspecified

== ENCOUNTER 2020-09-02 20:55 | Observation (INO) ==
[2020-09-02] MEDS ORDERED: ONDANSETRON INJ 2 MG/ML 2 ML VIAL IV STA (21:08)
[2020-09-02 21:20] LABS: Basophils # (auto) 0.06 K/uL (0-0.2); Basophils % (auto) 0.5 %; Eosinophils % (auto) 4.3 %; Hematocrit (blood only) 32.4 % (42-52); Immature Granulocytes # (auto) 0.04 K/uL (0.00-0.02); Immature Granulocytes % (auto) 0.3 %; Lymphocytes # (auto) 2.29 K/uL (1.2-3.4); Lymphocytes % (auto) 19.6 %; Mean Corpuscular Hemoglobin 27.8 pg (25-34); Mean Corpuscular Hgb Conc 30.9 g/dL (32-36); Mean Platelet Volume 12.7 fL (7.4-10.4); Neutrophils % (auto) 63.3 %; Platelet Count 205 K/uL (130-400); RDW Coefficient of Variation 15.7 % (11.5-14.5); RDW Standard Deviation 51.7 fL (36.4-46.3); White Blood Count 11.69 K/uL (4.8-10.8)
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
[2020-09-02 21:26] LABS: iSTAT Creatinine 2.2 mg/dl (0.6-1.3); iSTAT Hemoglobin 11.2 g/dl (14.0-18.0); iSTAT Ionized Calcium 1.36 mmol/l (1.12-1.32)
[2020-09-02] MEDS ORDERED: OPTIRAY 320 125ml IV ONE (21:29)
[2020-09-02 21:42] LABS: INR 1.1 (0.9-1.1); Partial Thromboplastin Ratio 0.9; Partial Thromboplastin Time 22.6 Seconds (21.0-31.0)
[2020-09-02 21:43] LABS: Albumin Level 3.1 gm/dl (3.4-5.0); BUN Creatinine Ratio 18.6 (10-20); Calcium 10.7 mg/dl (8.5-10.1); Est GFR (African American) 32.2; Est GFR (Non-African American) 27.8
[2020-09-02 21:49] LABS: Albumin Globulin Ratio 0.7 (0.9-2); Bilirubin,Total 0.4 mg/dl (0.2-1); Globulin 4.2 gm/dl (2.5-4.0); Total Protein 7.3 gm/dl (6.4-8.2); Troponin I 0.159 ng/ml (0-0.045)
[2020-09-02] MEDS ORDERED: PIPERACILLIN/TAZOBACTAM 4.5 GM/120 ML BAG IV ONE (22:19)
[2020-09-02] MEDS ORDERED: PIPERACILL/TAZOBAC CONSULT ACTIVE PRN (22:19)
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
[2020-09-03] LABS: Appearance Urine Clear (Clear); Bacteria Urine Automated Negative (Negative); Bilirubin Urine Negative (Negative); Blood Urine Trace (Negative); Color Urine Yellow; Glucose Urine UA Negative (Negative); Ketones Urine Negative (Negative); Leukocyte Esterase Urine Negative (Negative); Nitrite Urine Negative (Negative); Protein Urine 1+ (Negative); RBC Urine Automated 0-4 /hpf (0-4); Specific Gravity Urine 1.037 (1.000-1.030); Urobilinogen Urine Negative (Negative)
[2020-09-03 01:56] LABS: Basophils # (auto) 0.05 K/uL (0-0.2); Basophils % (auto) 0.5 %; Eosinophils # (auto) 0.25 K/uL (0-0.5); Eosinophils % (auto) 2.3 %; Hematocrit (blood only) 29.9 % (42-52); Hemoglobin 9.3 g/dL (14.0-18.0); Immature Granulocytes # (auto) 0.03 K/uL (0.00-0.02); Immature Granulocytes % (auto) 0.3 %; Lymphocytes # (auto) 1.86 K/uL (1.2-3.4); Mean Corpuscular Hemoglobin 27.8 pg (25-34); Mean Corpuscular Hgb Conc 31.1 g/dL (32-36); Mean Corpuscular Volume 89.3 fL (80-100); Mean Platelet Volume 12.2 fL (7.4-10.4); Monocytes # (auto) 1.08 K/uL (0.11-0.59); Monocytes % (auto) 9.9 %; Neutrophils # (auto) 7.69 K/uL (1.4-6.5); Platelet Count 181 K/uL (130-400); RDW Coefficient of Variation 15.6 % (11.5-14.5); RDW Standard Deviation 50.7 fL (36.4-46.3); Red Blood Count 3.35 M/uL (4.7-6.1); White Blood Count 10.96 K/uL (4.8-10.8)
[2020-09-03 02:12] LABS: BUN Creatinine Ratio 19.9 (10-20); Creatinine Clr Calc Pharmacy 31.9 ml/min; Est GFR (Non-African American) 30.2; Potassium 4.1 mmol/L (3.5-5.1)
[2020-09-03] MEDS ORDERED: MAGNESIUM HYDROXIDE SUSP 30 ML UDC PO PRN (03:32)
[2020-09-03] MEDS: PIPERACILLIN/TAZOBACTAM 3.375 GM in DEXTROSE 5% 100 ML IV SCH ×3 (03:42→20:10)
[2020-09-03] MEDS ORDERED: PIPERACILLIN/TAZOBACTAM 3.375 GM in DEXTROSE 5% 100 ML IV SCH (06:00)
--- NOTE | 2020-09-03 06:47 | CT Scan Report ---
CT head/brain wo con CLINICAL HISTORY: 80 years-old Male with ams eval for bleed. Acutely altered mental status TECHNIQUE: Multiple axial CT images of the head were obtained without contrast. A dose lowering tech nique was utilized adhering to the principles of ALARA. COMPARISON: Head CT 02/04/2020 FINDINGS: No acute intracranial hemorrhage, midline shift, intracranial mass, hydrocephalus, territorial ischem ia or abnormal extra-axial collection. Age-related involutional changes with ex vacuo ventriculomegal y. Advanced chronic microvascular ischemic disease with remote lacunar infarcts noted throughout the silva radiata and basal ganglia. Cerebral vascular calcifications. The calvarium is intact. Postoperative changes with numerous metallic plates of the facial bones. Ch ronic appearing fracture deformities of the right maxillary sinus with partial opacification. Mastoid air cells are clear. Unremarkable soft tissues with prior bilateral lens replacement. IMPRESSION: No acute intracranial abnormality. ACT 112: Negative or not required by law. The above report was generated using voice recognition software. It may contain grammatical, syntax o r spelling errors. Electronically signed by: Terence Hough M.D. 09/03/2020 6:46 AM
--- NOTE | 2020-09-03 07:27 | CT Scan Report ---
CT ANGIOGRAPHY THE CHEST WITHOUT AND WITH CONTRAST CLINICAL HISTORY: Atypical chest pain. Possible thoracic aortic dissection COMPARISON STUDY: CT scan dated 02/04/2020 TECHNIQUE: Unenhanced images were obtained through the thorax. Following the IV administration of 119 mL of Optiray-320, CT angiography of the thorax was performed from the thoracic inlet to the lung ba ses. MIP images were acquired. Images are reviewed in the axial, sagittal, and coronal planes. IV con trast was administered without complication. A dose lowering technique was utilized adhering to the principles of ALARA. CT DOSE: 3214.82 mGy.cm FINDINGS: Thyroid: There is a multinodular thyroid gland. Thoracic aorta: Noncontrast images reveal no evidence of thoracic aortic hematoma. Postcontrast image s reveal a short segment dissection involving the ascending thoracic aorta. There is severe atheromat ous changes. There is a short segment dissection within the ascending thoracic aorta which appears ch ronic. Within the descending thoracic aorta near the aortic hiatus, there are advanced atheromatous changes with penetrating ulcers as well as saccular aneurysms. There is a 24 mm right lateral saccular aneury sm which appears thrombosed. There is also left posterior lateral saccular aneurysm. Pulmonary vasculature: The pulmonary trunk is normal in caliber. There are no central filling defects identified to suggest pulmonary embolus. Note that this examination was not protocoled for the evalu ation of pulmonary emboli. HEART: The heart is mildly enlarged. There is a pacemaker present. There is no pericardial effusion. Lungs and pleural spaces: There is respiratory motion artifact. There is no lobar consolidation. Ther e is mild interstitial thickening. There are no significant pleural effusions. Mediastinum: There is no evidence of pathologic mediastinal lymphadenopathy. Shelli: There is no evidence of pathologic hilar lymphadenopathy Axilla: There is no evidence of pathologic axillary lymphadenopathy Upper abdomen: Partially visualized upper abdominal viscera is within normal limits. Skeletal structures: There are no lytic or blastic osseous lesions. IMPRESSION: 1. Severe atheromatous changes within the thoracic aorta. 2. 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 3. Chronic saccular aneurysms involving the distal descending thoracic aorta. In addition there are m ultiple ulcerated plaques/penetrating ulcers. ACT 112: Negative or not required by law. Electronically signed by: Dakota Magdaleno M.D. 09/03/2020 7:26 AM
--- NOTE | 2020-09-03 07:34 | CT Scan Report ---
CT angio abdomen pelvis w con CT DOSE: CLINICAL HISTORY: Abdominal pain. Possible dissection TECHNIQUE: CT angiography was performed in a dynamic helical fashion during intravenous administratio n of 119 cc of Optiray 320. A dose lowering technique was utilized adhering to the principles of ALA RA. COMPARISON STUDY: CT scan dated 01/18/2020 FINDINGS: No hepatic masses are visualized on this arterial phase study. The gallbladder is surgically absent. No splenic masses are visualized. No pancreatic masses are visualized. No adrenal masses are visualized. There are bilateral hypodense renal lesions likely representing cysts. There are no transition zones indicate bowel obstruction. There is colonic diverticulosis. There is infiltration of pericolonic fat level of the distal descend ing colon consistent with acute diverticulitis. There is no evidence of peridiverticular abscess. Prostate is enlarged. There is a chronic 29 mm saccular aneurysm of the thoracic aorta at the abdominal hiatus. There are m ultiple ulcerated plaques/penetrating ulcers present. There is a 90+ percent stenosis involving the celiac origin. There is a 50% stenosis involving the platt perior mesenteric artery origin. There is a 90+ percent stenosis involving the left renal artery orig in.There is a 51 mm abdominal aortic aneurysm which involves the renal arteries. There is an infraren al abdominal aortic aneurysm measuring 45 mm. Is a 23 mm left common iliac artery aneurysm. There is a 32 mm aneurysm of the proximal left superficial femoral artery. IMPRESSION: 1. Acute diverticulitis involving the distal descending colon 2. No evidence of bowel obstruction. No evidence of free air 3. Chronic saccular aneurysm and ulcerated plaque/penetrating ulcers involving the distal descending thoracic aorta 4. 51 mm abdominal aortic aneurysm at the level the renal arteries 5. 45 mm infrarenal abdominal aortic aneurysm 6. 23 mm left common iliac artery aneurysm 7. 32 mm aneurysm of the proximal left superficial femoral artery 8. 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 50% stenosis involving the superior mesenteric artery origin 10. 90+ percent stenosis involving the left renal artery origin ACT 112: Negative or not required by law. Electronically signed by: Dakota Magdaleno M.D. 09/03/2020 7:33 AM
[2020-09-03] MEDS: ALBUTEROL HFA 8 GM INHALER INH SCH ×4 (08:07→20:19)
[2020-09-03] MEDS: IPRATROPIUM BROMIDE HFA INHALER INH SCH ×4 (08:07→20:19)
--- NOTE | 2020-09-03 08:08 | Hospitalist Progress Note ---
Date of Service September 03, 2020 Assessment & Plan (1) Apneic episode: 80 yo M with extensive PMH including COPD, CKD, HTN, CHF, Hyperparathyroidism, admitted for SHARRON on CKD, elevated troponin and abdominal pain workup. Abdominal Pain CT Abd/pelv showing acute diverticulitis of descending sigmoid colon w/o perferation or abscess. reports hx of constipation has bowel movements every 3-4 days, likely constipated which could cause nausea + vomiting. Last BM 2 days ago - continue zosyn Q8H for anaerobic and gram negative coverage - stool regimen: daily docusate/senna + BID miralax. milk of magnesia PRN Elevated Troponin Appears chronically elevated initially 0.159 ->0.141. no new st segment changes or complaints of chest pain. - EKG with chest Pain Anemia Hg 10 -> 9.3 from 12.7 in january 2020. 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 Hyperparathyroidism - pt has previously refused workup - calcium elevated to 10.7, ionized Calcium 1.36 COPD - cont home combivent respimat or pharmacy equivalent CAD with hx TIA - cont statin, asa, plavix Diastolic CHF hx - ECHO 11/2019 showing EF 50-55% - cont metoprolol BID Apnea spell - Likely underlying STEVEN - Consider outpatient sleep study DVT ppx: contraindicated in setting of possible GIB FEN/GI: NPO pending speech swallow eval Code Status: FUll Code Dispo: PCU, Admission and Anticipated Discharge Date Admission Date: September 02, 2020 Supervising Physician Co-Signing Physician Notes Resident Physician Supervision Note: I independently interviewed and examined the patient and verified the sherwood history and physical, reviewed labs and image studies, discussed the case with the resident Dr. Art and agree with the findings and care plan. Subjective Patient lying in bed this morning in no acute distress endorsing left lower quadrant pain. Reports he did not sleep too well overnight, otherwise doing well. Patient reports voiding on his own, has not had a bowel movement in 2 days, has been n.p.o. overnight, diet advanced to full liquids. Patient denies constitutional symptoms including fever, chills. Review of Systems Review of Systems: All systems reviewed & are unremarkable except as noted in HPI & below Physical Exam Physical Exam: General: No acute distress HEENT: Normocephalic atraumatic Neck: Visual inspection Cardiac: Regular rate and rhythm I did not appreciate significant murmurs rubs or gallops, normal S1, normal S2, negative pedal edema, negative calf tenderness Respiratory: Clear to auscultation bilaterally without wheezes, rales, rhonchi, no increased work of breathing GI: Tender to palpation left lower quadrant and mildly in the right lower quadrant, otherwise bowel sounds present, nondistended MSK: Moves all extremities Neuro: Alert and oriented x4 Psych: Calm and cooperative Results & Data Results & Data ([facility]) Vital Signs (Past 12 Hours) Vital Signs Temp Pulse Pulse Resp BP BP Pulse Ox 09/03/20 07:22 36.7 C 60 17 150/82 H 98 09/03/20 07:00 63 09/03/20 03:38 36.8 C 53 L 16 122/75 97 09/03/20 01:16 36.5 C 64 18 148/82 H 99 09/03/20 01:00 149/75 H 09/03/20 00:58 61 18 143/77 H 95 09/03/20 00:30 64 18 143/77 H 93 09/03/20 00:00 60 16 138/77 95 09/02/20 23:31 65 14 96 09/02/20 23:30 61 16 148/78 H 98 09/02/20 23:00 63 18 148/80 H 94 09/02/20 22:45 62 17 97 09/02/20 22:30 64 18 148/84 H 95 09/02/20 22:15 62 24 93 09/02/20 22:00 62 18 146/74 H 96 09/02/20 21:40 65 19 114/62 98 09/02/20 21:06 37.1 C 79 20 146/92 H 95 Laboratory Results 09/03/20 09/03/20 09/03/20 Range/Units 03:28 01:42 01:42 WBC 10.96 H (4.8-10.8) K/uL RBC 3.35 L (4.7-6.1) M/uL Hgb 9.3 L (14.0-18.0) g/dL POC Hgb (14.0-18.0) g/dl Hct 29.9 L (42-52) % POC Hct (42-52) % MCV 89.3 (80-100) fL MCH 27.8 (25-34) pg MCHC 31.1 L (32-36) g/dL RDW Std Deviation 50.7 H (36.4-46.3) fL RDW Coeff of Sonia 15.6 H (11.5-14.5) % Plt Count 181 (130-400) K/uL MPV 12.2 H (7.4-10.4) fL Immature Gran % (Auto) 0.3 % Neut % (Auto) 70.0 % Lymph % (Auto) 17.0 % Milam % (Auto) 9.9 % Eos % (Auto) 2.3 % Baso % (Auto) 0.5 % Neut # (Auto) 7.69 H (1.4-6.5) K/uL Lymph # (Auto) 1.86 (1.2-3.4) K/uL Milam # (Auto) 1.08 H (0.11-0.59) K/uL Eos # (Auto) 0.25 (0-0.5) K/uL Baso # (Auto) 0.05 (0-0.2) K/uL Immature Gran # (Auto) 0.03 H (0.00-0.02) K/uL PT (9.0-12.0) Seconds INR (0.9-1.1) APTT (21.0-31.0) Seconds PTT Ratio POC Sodium (135-144) mmol/L Sodium 139 (136-145) mmol/L POC Potassium (3.3-5.0) mmol/L Potassium 4.1 (3.5-5.1) mmol/L POC Chloride (101-112) mmol/L Chloride 105 (98-107) mmol/L Carbon Dioxide 28 (21-32) mmol/L POC Total CO2 (24-31) mmol/L Anion Gap 6.0 (3-11) POC Anion Gap (16-25) mmol/L POC BUN (7-18) mg/dl BUN 40 H (7-18) mg/dl Creatinine 2.00 H (0.6-1.4) mg/dl POC Creatinine (0.6-1.3) mg/dl Est Cr Clr Drug Dosing 31.9 ml/min Est GFR ( Amer) 35.0 Est GFR (Non-Af Amer) 30.2 BUN/Creatinine Ratio 19.9 (10-20) Glucose 110 H (70-99) mg/dl POC Glucose (70-99) mg/dl POC Glucose (other) (70-99) mg/dl Calcium 10.0 (8.5-10.1) mg/dl POC Ioniz Calcium Michelle (1.12-1.32) mmol/l Total Bilirubin (0.2-1) mg/dl AST (15-37) U/L ALT (12-78) U/L Alkaline Phosphatase (45-117) U/L Troponin I (0-0.045) ng/ml Total Protein (6.4-8.2) gm/dl Albumin (3.4-5.0) gm/dl Globulin (2.5-4.0) gm/dl Albumin/Globulin Ratio (0.9-2) Lipase (73-393) U/L Urine Color Urine Appearance (Clear) Urine pH (4.5-7.5) Ur Specific [place] (1.000-1.030) Urine Protein (Negative) Urine Glucose (UA) (Negative) Urine Ketones (Negative) Urine Blood (Negative) Urine Nitrite (Negative) Urine Bilirubin (Negative) Urine Urobilinogen (Negative) Ur Leukocyte Esterase (Negative) Urine WBC (Auto) (0-5) /hpf Urine RBC (Auto) (0-4) /hpf U Hyaline Cast (Auto) (0-5) /lpf U Epithel Cells (Auto) (0-5) /lpf Urine Bacteria (Auto) (Negative) Ur Random Microalbumin 25.2 mg/L COVID-19 Eval Order SARS-CoV-2, RNA, NAAT (NEGATIVE) Blood Type Antibody Screen 09/03/20 09/02/20 09/02/20 Range/Units 01:42 23:05 22:50 WBC (4.8-10.8) K/uL RBC (4.7-6.1) M/uL Hgb (14.0-18.0) g/dL POC Hgb (14.0-18.0) g/dl Hct (42-52) % POC Hct (42-52) % MCV (80-100) fL MCH (25-34) pg MCHC (32-36) g/dL RDW Std Deviation (36.4-46.3) fL RDW Coeff of Sonia (11.5-14.5) % Plt Count (130-400) K/uL MPV (7.4-10.4) fL Immature Gran % (Auto) % Neut % (Auto) % Lymph % (Auto) % Milam % (Auto) % Eos % (Auto) % Baso % (Auto) % Neut # (Auto) (1.4-6.5) K/uL Lymph # (Auto) (1.2-3.4) K/uL Milam # (Auto) (0.11-0.59) K/uL Eos # (Auto) (0-0.5) K/uL Baso # (Auto) (0-0.2) K/uL Immature Gran # (Auto) (0.00-0.02) K/uL PT (9.0-12.0) Seconds INR (0.9-1.1) APTT (21.0-31.0) Seconds PTT Ratio POC Sodium (135-144) mmol/L Sodium (136-145) mmol/L POC Potassium (3.3-5.0) mmol/L Potassium (3.5-5.1) mmol/L POC Chloride (101-112) mmol/L Chloride (98-107) mmol/L Carbon Dioxide (21-32) mmol/L POC Total CO2 (24-31) mmol/L Anion Gap (3-11) POC Anion Gap (16-25) mmol/L POC BUN (7-18) mg/dl BUN (7-18) mg/dl Creatinine (0.6-1.4) mg/dl POC Creatinine (0.6-1.3) mg/dl Est Cr Clr Drug Dosing ml/min Est GFR ( Amer) Est GFR (Non-Af Amer) BUN/Creatinine Ratio (10-20) Glucose (70-99) mg/dl POC Glucose (70-99) mg/dl POC Glucose (other) (70-99) mg/dl Calcium (8.5-10.1) mg/dl POC Ioniz Calcium Michelle (1.12-1.32) mmol/l Total Bilirubin (0.2-1) mg/dl AST (15-37) U/L ALT (12-78) U/L Alkaline Phosphatase (45-117) U/L Troponin I 0.141 H* (0-0.045) ng/ml Total Protein (6.4-8.2) gm/dl Albumin (3.4-5.0) gm/dl Globulin (2.5-4.0) gm/dl Albumin/Globulin Ratio (0.9-2) Lipase (73-393) U/L Urine Color Yellow Urine Appearance Clear (Clear) Urine pH 7.0 (4.5-7.5) Ur Specific [place] 1.037 H (1.000-1.030) Urine Protein 1+ H (Negative) Urine Glucose (UA) Negative (Negative) Urine Ketones Negative (Negative) Urine Blood Trace H (Negative) Urine Nitrite Negative (Negative) Urine Bilirubin Negative (Negative) Urine Urobilinogen Negative (Negative) Ur Leukocyte Esterase Negative (Negative) Urine WBC (Auto) 10-30 H (0-5) /hpf Urine RBC (Auto) 0-4 (0-4) /hpf U Hyaline Cast (Auto) 1-5 (0-5) /lpf U Epithel Cells (Auto) 10-20 H (0-5) /lpf Urine Bacteria (Auto) Negative (Negative) Ur Random Microalbumin mg/L COVID-19 Eval Order SARS-CoV-2, RNA, NAAT NEGATIVE (NEGATIVE) Blood Type Antibody Screen 09/02/20 09/02/20 09/02/20 Range/Units 22:50 21:17 21:14 WBC (4.8-10.8) K/uL RBC (4.7-6.1) M/uL Hgb (14.0-18.0) g/dL POC Hgb 11.2 L (14.0-18.0) g/dl Hct (42-52) % POC Hct 33 L (42-52) % MCV (80-100) fL MCH (25-34) pg MCHC (32-36) g/dL RDW Std Deviation (36.4-46.3) fL RDW Coeff of Sonia (11.5-14.5) % Plt Count (130-400) K/uL MPV (7.4-10.4) fL Immature Gran % (Auto) % Neut % (Auto) % Lymph % (Auto) % Milam % (Auto) % Eos % (Auto) % Baso % (Auto) % Neut # (Auto) (1.4-6.5) K/uL Lymph # (Auto) (1.2-3.4) K/uL Milam # (Auto) (0.11-0.59) K/uL Eos # (Auto) (0-0.5) K/uL Baso # (Auto) (0-0.2) K/uL Immature Gran # (Auto) (0.00-0.02) K/uL PT (9.0-12.0) Seconds INR (0.9-1.1) APTT (21.0-31.0) Seconds PTT Ratio POC Sodium 139 (135-144) mmol/L Sodium (136-145) mmol/L POC Potassium 4.0 (3.3-5.0) mmol/L Potassium (3.5-5.1) mmol/L POC Chloride 102 (101-112) mmol/L Chloride (98-107) mmol/L Carbon Dioxide (21-32) mmol/L POC Total CO2 29 (24-31) mmol/L Anion Gap (3-11) POC Anion Gap 12.0 L (16-25) mmol/L POC BUN 41 H (7-18) mg/dl BUN (7-18) mg/dl Creatinine (0.6-1.4) mg/dl POC Creatinine 2.2 H (0.6-1.3) mg/dl Est Cr Clr Drug Dosing ml/min Est GFR ( Amer) Est GFR (Non-Af Amer) BUN/Creatinine Ratio (10-20) Glucose (70-99) mg/dl POC Glucose (70-99) mg/dl POC Glucose (other) 109 H (70-99) mg/dl Calcium (8.5-10.1) mg/dl POC Ioniz Calcium Michelle 1.36 H (1.12-1.32) mmol/l Total Bilirubin (0.2-1) mg/dl AST (15-37) U/L ALT (12-78) U/L Alkaline Phosphatase (45-117) U/L Troponin I (0-0.045) ng/ml Total Protein (6.4-8.2) gm/dl Albumin (3.4-5.0) gm/dl Globulin (2.5-4.0) gm/dl Albumin/Globulin Ratio (0.9-2) Lipase (73-393) U/L Urine Color Urine Appearance (Clear) Urine pH (4.5-7.5) Ur Specific [place] (1.000-1.030) Urine Protein (Negative) Urine Glucose (UA) (Negative) Urine Ketones (Negative) Urine Blood (Negative) Urine Nitrite (Negative) Urine Bilirubin (Negative) Urine Urobilinogen (Negative) Ur Leukocyte Esterase (Negative) Urine WBC (Auto) (0-5) /hpf Urine RBC (Auto) (0-4) /hpf U Hyaline Cast (Auto) (0-5) /lpf U Epithel Cells (Auto) (0-5) /lpf Urine Bacteria (Auto) (Negative) Ur Random Microalbumin mg/L COVID-19 Eval Order Covid19 IDNow [facility] SARS-CoV-2, RNA, NAAT (NEGATIVE) Blood Type O Positive Antibody Screen NEGATIVE 09/02/20 09/02/20 09/02/20 Range/Units 21:09 21:09 21:09 WBC 11.69 H (4.8-10.8) K/uL RBC 3.60 L (4.7-6.1) M/uL Hgb 10.0 L (14.0-18.0) g/dL POC Hgb (14.0-18.0) g/dl Hct 32.4 L (42-52) % POC Hct (42-52) % MCV 90.0 (80-100) fL MCH 27.8 (25-34) pg MCHC 30.9 L (32-36) g/dL RDW Std Deviation 51.7 H (36.4-46.3) fL RDW Coeff of Sonia 15.7 H (11.5-14.5) % Plt Count 205 (130-400) K/uL MPV 12.7 H (7.4-10.4) fL Immature Gran % (Auto) 0.3 % Neut % (Auto) 63.3 % Lymph % (Auto) 19.6 % Milam % (Auto) 12.0 % Eos % (Auto) 4.3 % Baso % (Auto) 0.5 % Neut # (Auto) 7.40 H (1.4-6.5) K/uL Lymph # (Auto) 2.29 (1.2-3.4) K/uL Milam # (Auto) 1.40 H (0.11-0.59) K/uL Eos # (Auto) 0.50 (0-0.5) K/uL Baso # (Auto) 0.06 (0-0.2) K/uL Immature Gran # (Auto) 0.04 H (0.00-0.02) K/uL PT 11.0 (9.0-12.0) Seconds INR 1.1 (0.9-1.1) APTT 22.6 (21.0-31.0) Seconds PTT Ratio 0.9 POC Sodium (135-144) mmol/L Sodium 140 (136-145) mmol/L POC Potassium (3.3-5.0) mmol/L Potassium 4.0 (3.5-5.1) mmol/L POC Chloride (101-112) mmol/L Chloride 104 (98-107) mmol/L Carbon Dioxide 28 (21-32) mmol/L POC Total CO2 (24-31) mmol/L Anion Gap 8.0 (3-11) POC Anion Gap (16-25) mmol/L POC BUN (7-18) mg/dl BUN 40 H (7-18) mg/dl Creatinine 2.14 H (0.6-1.4) mg/dl POC Creatinine (0.6-1.3) mg/dl Est Cr Clr Drug Dosing 30.0 ml/min Est GFR ( Amer) 32.2 Est GFR (Non-Af Amer) 27.8 BUN/Creatinine Ratio 18.6 (10-20) Glucose 107 H (70-99) mg/dl POC Glucose (70-99) mg/dl POC Glucose (other) (70-99) mg/dl Calcium 10.7 H (8.5-10.1) mg/dl POC Ioniz Calcium Michelle (1.12-1.32) mmol/l Total Bilirubin 0.4 (0.2-1) mg/dl AST 15 (15-37) U/L ALT 16 (12-78) U/L Alkaline Phosphatase 99 (45-117) U/L Troponin I 0.159 H* (0-0.045) ng/ml Total Protein 7.3 (6.4-8.2) gm/dl Albumin 3.1 L (3.4-5.0) gm/dl Globulin 4.2 H (2.5-4.0) gm/dl Albumin/Globulin Ratio 0.7 L (0.9-2) Lipase 172 (73-393) U/L Urine Color Urine Appearance (Clear) Urine pH (4.5-7.5) Ur Specific [place] (1.000-1.030) Urine Protein (Negative) Urine Glucose (UA) (Negative) Urine Ketones (Negative) Urine Blood (Negative) Urine Nitrite (Negative) Urine Bilirubin (Negative) Urine Urobilinogen (Negative) Ur Leukocyte Esterase (Negative) Urine WBC (Auto) (0-5) /hpf Urine RBC (Auto) (0-4) /hpf U Hyaline Cast (Auto) (0-5) /lpf U Epithel Cells (Auto) (0-5) /lpf Urine Bacteria (Auto) (Negative) Ur Random Microalbumin mg/L COVID-19 Eval Order SARS-CoV-2, RNA, NAAT (NEGATIVE) Blood Type Antibody Screen 09/02/20 Range/Units 21:04 WBC (4.8-10.8) K/uL RBC (4.7-6.1) M/uL Hgb (14.0-18.0) g/dL POC Hgb (14.0-18.0) g/dl Hct (42-52) % POC Hct (42-52) % MCV (80-100) fL MCH (25-34) pg MCHC (32-36) g/dL RDW Std Deviation (36.4-46.3) fL RDW Coeff of Sonia (11.5-14.5) % Plt Count (130-400) K/uL MPV (7.4-10.4) fL Immature Gran % (Auto) % Neut % (Auto) % Lymph % (Auto) % Milam % (Auto) % Eos % (Auto) % Baso % (Auto) % Neut # (Auto) (1.4-6.5) K/uL Lymph # (Auto) (1.2-3.4) K/uL Milam # (Auto) (0.11-0.59) K/uL Eos # (Auto) (0-0.5) K/uL Baso # (Auto) (0-0.2) K/uL Immature Gran # (Auto) (0.00-0.02) K/uL PT (9.0-12.0) Seconds INR (0.9-1.1) APTT (21.0-31.0) Seconds PTT Ratio POC Sodium (135-144) mmol/L Sodium (136-145) mmol/L POC Potassium (3.3-5.0) mmol/L Potassium (3.5-5.1) mmol/L POC Chloride (101-112) mmol/L Chloride (98-107) mmol/L Carbon Dioxide (21-32) mmol/L POC Total CO2 (24-31) mmol/L Anion Gap (3-11) POC Anion Gap (16-25) mmol/L POC BUN (7-18) mg/dl BUN (7-18) mg/dl Creatinine (0.6-1.4) mg/dl POC Creatinine (0.6-1.3) mg/dl Est Cr Clr Drug Dosing ml/min Est GFR ( Amer) Est GFR (Non-Af Amer) BUN/Creatinine Ratio (10-20) Glucose (70-99) mg/dl POC Glucose 122 H (70-99) mg/dl POC Glucose (other) (70-99) mg/dl Calcium (8.5-10.1) mg/dl POC Ioniz Calcium Michelle (1.12-1.32) mmol/l Total Bilirubin (0.2-1) mg/dl AST (15-37) U/L ALT (12-78) U/L Alkaline Phosphatase (45-117) U/L Troponin I (0-0.045) ng/ml Total Protein (6.4-8.2) gm/dl Albumin (3.4-5.0) gm/dl Globulin (2.5-4.0) gm/dl Albumin/Globulin Ratio (0.9-2) Lipase (73-393) U/L Urine Color Urine Appearance (Clear) Urine pH (4.5-7.5) Ur Specific [place] (1.000-1.030) Urine Protein (Negative) Urine Glucose (UA) (Negative) Urine Ketones (Negative) Urine Blood (Negative) Urine Nitrite (Negative) Urine Bilirubin (Negative) Urine Urobilinogen (Negative) Ur Leukocyte Esterase (Negative) Urine WBC (Auto) (0-5) /hpf Urine RBC (Auto) (0-4) /hpf U Hyaline Cast (Auto) (0-5) /lpf U Epithel Cells (Auto) (0-5) /lpf Urine Bacteria (Auto) (Negative) Ur Random Microalbumin mg/L COVID-19 Eval Order SARS-CoV-2, RNA, NAAT (NEGATIVE) Blood Type Antibody Screen Medications Administered Current Inpatient Medications Albuterol (Albuterol Hfa 8 Gm Inhaler) 1 puffs INH QIDR [facility] Stop: 10/03/20 06:59 Last Admin: 09/03/20 11:25 Dose: 1 puffs Documented by: Aspirin (Aspirin 81 Mg Ectab) 81 mg PO [facility] Stop: 10/03/20 08:59 Last Admin: 09/03/20 08:40 Dose: 81 mg Documented by: Citalopram Hydrobromide (Citalopram 20 Mg Tab) 20 mg PO [facility] Stop: 10/03/20 08:59 Last Admin: 09/03/20 08:40 Dose: 20 mg Documented by: Clopidogrel Bisulfate (Clopidogrel Bisulfate 75 Mg Tab) 75 mg PO [facility] Stop: 10/03/20 08:59 Last Admin: 09/03/20 08:39 Dose: 75 mg Documented by: Furosemide (Furosemide 40 Mg Tab) 40 mg PO BID17 [facility] Stop: 10/03/20 08:59 Last Admin: 09/03/20 08:38 Dose: 40 mg Documented by: Piperacillin Sod/Tazobactam (Sod 3.375 gm/ Dextrose) 115 mls @ 28.75 mls/hr IV Q8H [facility]; Protocol Stop: 09/10/20 03:59 Last Admin: 09/03/20 12:47 Dose: 28.8 mls/hr Documented by: Ipratropium [place]field (Ipratropium [place]field Hfa Inhaler) 1 puffs INH QIDR [facility] Stop: 10/03/20 06:59 Last Admin: 09/03/20 11:25 Dose: 1 puffs Documented by: Magnesium Hydroxide (Magnesium Hydroxide Susp 30 Ml Udc) 30 ml PO Q6H PRN PRN Reason: Constipation Stop: 10/03/20 03:31 Metoprolol Tartrate (Metoprolol Tartrate 50 Mg Tab) 50 mg PO BID [facility] Stop: 10/03/20 08:59 Last Admin: 09/03/20 08:39 Dose: 50 mg Documented by: Miscellaneous Information (Piperacill/Tazobac Consult Active) 1 ea N/A UD PRN PRN Reason: Consult Stop: 10/02/20 22:18 Polyethylene Glycol (Polyethylene (Miralax) 17 Gm Pack) 17 gm PO BID [facility] Stop: 10/03/20 20:59 Ranolazine (Ranolazine 500 Mg Er Tab) 500 mg PO Q12H [facility] Stop: 10/03/20 08:59 Last Admin: 09/03/20 08:37 Dose: 500 mg Documented by: Rosuvastatin Calcium (Rosuvastatin Calcium 20 Mg Tab) 20 mg PO DAILY [facility] Stop: 10/03/20 08:59 Last Admin: 09/03/20 08:38 Dose: 20 mg Documented by: Senna/Docusate Sodium (Docusate Sodium/Senna 50/8.6mg Tab) 1 tab PO QAM [facility] Stop: 10/03/20 08:59 Last Admin: 09/03/20 08:37 Dose: 1 tab Documented by: Vitamin D (Cholecalciferol 400 Units 10 Mcg Tab) 400 units PO DAILY [facility] Stop: 10/03/20 08:59 Last Admin: 09/03/20 08:38 Dose: 400 units Documented by: Resident Activity Tracking Resident Involvement: Resident Care Provided Care Provided: Adult Hospital Medicine
[2020-09-03] MEDS: RANOLAZINE 500 MG ER TAB PO SCH ×2 (08:37→20:11)
[2020-09-03] MEDS: DOCUSATE SODIUM/SENNA 50/8.6MG TAB PO SCH (08:37)
[2020-09-03] MEDS: FUROSEMIDE 40 MG TAB PO SCH ×2 (08:38→17:43)
[2020-09-03] MEDS: CHOLECALCIFEROL 400 UNITS 10 MCG TAB PO SCH (08:38)
[2020-09-03] MEDS: ROSUVASTATIN CALCIUM 20 MG TAB PO SCH (08:38)
[2020-09-03] MEDS: CLOPIDOGREL BISULFATE 75 MG TAB PO SCH (08:39)
[2020-09-03] MEDS: METOPROLOL TARTRATE 50 MG TAB PO SCH ×2 (08:39→20:11)
[2020-09-03] MEDS: ASPIRIN 81 MG ECTAB PO SCH (08:40)
[2020-09-03] MEDS: CITALOPRAM 20 MG TAB PO SCH (08:40)
[2020-09-03] MEDS ORDERED: POLYETHYLENE (MIRALAX) 17 GM PACK PO STA (08:46)
[2020-09-03] MEDS ORDERED: HEPARIN SOD 5,000 UNIT/0.5 ML VIAL SQ SCH (09:00)
[2020-09-03] MEDS ORDERED: POLYETHYLENE (MIRALAX) 17 GM PACK PO SCH (09:00)
--- NOTE | 2020-09-03 12:35 | Electrocardiogram Report ---
Test Reason : Blood Pressure : / mmHG Vent. Rate : 087 BPM Atrial Rate : 087 BPM P-R Int : 356 ms QRS Dur : 152 ms QT Int : 450 ms P-R-T Axes : 000 -09 122 degrees QTc Int : 541 ms Atrial-paced rhythm with prolonged AV conduction with frequent Premature ventricular complexes Left bundle branch block Abnormal ECG When compared with ECG of 04-FEB-2020 15:49, No significant change Confirmed by Olu Brown ([id number]) on 09/03/2020 12:34:26 PM Referred By: REFERRED SELF Confirmed By:Olu Brown
[2020-09-03] MEDS: POLYETHYLENE (MIRALAX) 17 GM PACK PO SCH (20:10)
[2020-09-04] MEDS: PIPERACILLIN/TAZOBACTAM 3.375 GM in DEXTROSE 5% 100 ML IV SCH ×2 (05:05→12:17)
--- NOTE | 2020-09-04 06:46 | Discharge Summary ---
Date of Service September 04, 2020 Admission HPI Per Admitting Provider 80-year-old male with a past medical history of pancreatitis, hyperparathyroidism, AAA, TIA, CAD, COPD, PAD, HLD, HTN, GERD, CKD, diastolic CHF, ischemic heart disease status post pacemaker insertion who presents to the emergency department for witnessed apneic spell at home and abdominal pain. After dinner patient went to go sit in recliner at home and fell asleep. later went to go check on him and saw that he was not breathing. She is unsure of how long this lasted (anywhere from 30 seconds to 5 minutes). She did call the ambulance and he was breathing again on his own by the time the ambulance came. He does complain of some left lower quadrant pain, and says he has been having nausea in the morning every day for a while now. He denies any nausea/vomiting waking him up from sleep. Primary Care Provider: Ernesto Page MD Admission Exam Per Admitting Provider Constitutional: elderly male laying in bed, appearing fatigued and mildly confused Eyes: EOMI, pupils equal and reactive bilaterally, no scleral icterus Cardiac: RRR, no murmurs, gallops or rubs. Normal S1, S2 Pulm: CTA BL, crackles in RLL, moving air well throughout both lungs Abd: soft, TTP in LLQ, nondistended, normal bowel sounds, no rebound or guarding Extremities: 2+ peripheral pulses, 3+ pitting edema to ankles bilaterally Neuro: no focal deficits, moving all 4 limbs, A&Ox3 Principal Diagnosis Diverticulitis complicated by constipation, sleep apnea, elevated troponins, anemia Discharge Exam General: No acute distress HEENT: Normocephalic atraumatic Neck: Normal to visual inspection Cardiac: Regular rate and rhythm I did not appreciate significant murmurs rubs or gallops, normal S1, normal S2, negative pedal edema, negative calf tenderness Respiratory: Clear to auscultation bilaterally with symmetrical chest expansion and appreciate significant wheezes, rales, rhonchi GI: Tender to palpation left lower quadrant in the right lower quadrant otherwise nondistended bowel sounds present Neuro: Alert and oriented x4 Psych: Calm and cooperative with the interview Discharge Data Allergies Allergy/AdvReac Type Severity Reaction Status Date / Time adhesive Allergy Intermediate rash, Verified 09/02/20 21:26 irritation Consultations 09/02/20 22:19 ED Decision to Admit Stat Ordered Studies 09/02/20 21:08 CT angio abdomen pelvis w con Urgent CT angio chest dissec wo/w con Urgent CT head/brain wo con Urgent Hospital Course (1) Apneic episode: 80 yo M with extensive PMH including COPD, CKD, HTN, CHF, Hyperparathyroidism, admitted for SHARRON on CKD, elevated troponin and abdominal pain workup. Acute diverticulitis CT Abd/pelv showing acute diverticulitis of descending sigmoid colon w/o perferation or abscess. Patient also reports hx of constipation has bowel movements every 3-4 days, likely constipated which could cause nausea + vomiting. Last BM 2 days ago. -Received 2 days of IV antibiotics, transition to Augmentin to complete a 7-day course as an outpatient. Elevated Troponin Appears chronically elevated initially 0.159 ->0.141. no new st segment changes or complaints of chest pain. Follow-up with primary care provider consider outpatient troponin Anemia Hg 10 -> 9.3 from 12.7 in january 2020. no complaints of melena/BRBPR. Hemoglobin has been stable around 10 throughout the admission. Consider outpatient CBC Leukocytosis on admission WBC 10k, likely due to above diverticulitis - afebrile, BP stable Apneic episode Patient presented status post actinic episode at home. After obtaining a thorough history and overnight pulse ox it is most likely this is secondary to STEVEN. Overnight pulse ox demonstrated approximately 22 minutes with SPO2 less than 90 qualifying for 2 L of O2 at night. Patient will need an outpatient sleep study to further characterize his hypoxia overnight and determine whether a CPAP would be beneficial. SHARRON on CKD mild increase in Cr from baseline 1.9 to 2.14 - On discharge creatinine was 2.0 Hyperparathyroidism pt has previously refused workup on admission calcium elevated to 10.7, ionized Calcium 1.36. - F/u as an outpt COPD -continued home meds t CAD with hx TIA - cont statin, asa, plavix Chronic Diastolic CHF hx - ECHO 11/2019 showing EF 50-55% - cont metoprolol BID DVT ppx: SCDs FEN/GI: Heart healthy diet Code Status: FUll Code Dispo: Home Total Time Total Time Spent Total Time Spent (In Minutes): 34 Discharge Plan Discharge Items Patient Disposition: Home - Self-Care Reason For Visit: APNEA, TROPONIN ELEVATION Discharge Diagnosis: Diverticulitis complicated by constipation, sleep apnea, elevated troponins, anemia Activity: Resume your previous activity Non-emergency contact: Primary Care Provider Call non-emergency contact if: you have any medication questions, your pain is not controlled and your temperature is above 101 Follow-up/Referrals: Ernesto Page III, MD [Primary Care Provider] - 09/07/20 10:00 am Diet: Heart Healthy Addtl Attending Provider Instructions: Care instructions: You were admitted to [facility] for treatment of diverticulitis, an infection of your bowel. Additionally you presented to the hospital after you stop breathing while sleeping, this is known as an apneic episode. We evaluated you for these episodes while hospitalized and it was noted that you become hypoxic, have low oxygen, overnight to that extent we have prescribed you 2 L of oxygen to be worn at night. Additionally after being admitted it was noted that you had an infection of your bowels, you also endorsed significant constipation. You were provided with laxatives and IV antibiotic therapy which was transitioned to oral on discharge. You are to complete a 7-day course of p.o. antibiotics. You have been prescribed Augmentin you should take 1 pill in the morning and 1 pill in the evening with food. This medication has been known to cause stomach upset to that extent we have prescribed you a probiotic. It is important that you stay adequately hydrated, and monitor your bowels. Should you experience significant constipation again please do not hesitate to initiate MiraLAX therapy. Augmentin: 1 pill in the a.m., 1 pill in the p.m. for 7 days Oxygen: Please use 2 L at night while sleeping, follow-up with your primary care provider to discuss the need for a sleep study. A discharge summary will be sent to your primary care physician to ensure continuity of care. Please bring this discharge summary with you to your next office appointment so that your provider can review it at that time. Follow-up appointments: - Keep all your follow-up appointments as already scheduled. If you cannot make an appointment, notify your provider. - Please call to request a follow-up appointment with your primary care physician within one week of discharge. Please let us know if you are unable to obtain an appointment Follow-up labs: - Please go to a lab nearest you and obtain the requested lab work. Please have this completed at least 3 hours before your doctor's appointment (or the day before your appointment if possible). Medications: - Your medication list has been reviewed and reconciled upon discharge to ensure accuracy and continuity of care. - You are provided with a list of all your current medications at this time. Please review this list closely and make note of any changes. - Please take all of your medications exactly as prescribed. - Tell your primary care provider if you cannot afford your medications. - Call your primary care provider if you are having any side effects or any other problems. - Call your primary care provider before taking any over the counter medications or supplements, including herbals and vitamins, because some of these may interact with your current medications and/or make your symptoms worse. Symptoms: Please call your primary care provider for symptoms including, but not limited to: fevers (temperatures greater than 100.4), chills, intractable nausea or vomiting, diarrhea, rash, shortness of breath, bleeding, pain, or if you experience any worsening of the symptoms that brought you to the hospital. For EMERGENCY and VERY SERIOUS health-related issues, such as chest pain, shortness of breath, or sudden onset of the symptoms that brought you to the hospital, you may need to call 911 or go directly to the Emergency Room It has been our privilege to take care of you during your hospital stay. And Above All Else Feel Better! Best Wishes, Jc Art MD PGY2 Resident, Family & Community Medicine [facility] Residency at [facility] - [address], [address] MC: [place] [address] Pending Studies at Discharge: No Stand-Alone Forms: My [facility], Smoking Cessation Medications and DC Order Prescriptions: New amoxicillin-pot clavulanate [Augmentin] 875-125 mg tablet 1 tab PO BID 7 Days Qty: 14 RF: 0 Probiotic 3 billion cell capsule 3,000 mmu cells PO DAILY 7 Days Qty: 7 RF: 0 Continued aspirin [Aspirin Low Dose] 81 mg Tablet,Delayed Release (Dr/Ec) 81 mg PO QAM Qty: 0 RF: 0 Combivent Respimat 20-100 mcg/actuation mist 1 puff inhalation QID Qty: 4 RF: 5 rosuvastatin 20 mg tablet 20 mg PO DAILY Qty: 90 RF: 3 citalopram 20 mg tablet 20 mg PO QAM Qty: 30 RF: 11 clopidogrel 75 mg tablet 75 mg PO QAM Qty: 30 RF: 11 Hold Instructions: Home Medication placed on hold at Doctor's office metoprolol tartrate [Lopressor] 50 mg tablet 50 mg PO BID Qty: 60 RF: 11 furosemide 20 mg tablet 40 mg PO BID Qty: 120 RF: 5 potassium chloride 10 mEq tablet extended release 10 meq PO DAILY Qty: 90 RF: 3 cholecalciferol (vitamin D3) [Vitamin D3] 10 mcg (400 unit) tablet 400 units PO DAILY Qty: 30 RF: 0 nitroglycerin [Nitrostat] 0.4 mg tablet, sublingual 0.4 mg Sublingual Q5M PRN (Reason: Chest Pain) RF: 0 No Action ranolazine 500 mg tablet extended release 12 hr 500 mg PO Q12H Qty: 180 RF: 3 Discharge Orders: Discharge Order (Routine); Ordered 09/04/20 Ordered By: Jc Art Admission Data Admit Date/Time: 09/02/20 23:57 Attending Provider: Sera Correa Admit Provider: Celina Maria Primary Care Provider: Ernesto Page III Other Providers: Malachi Jacinto Other Interventions: Discharge Summary Assessment (RN) Last Done: 09/04/20 10:47 Supervising Physician Co-Signing Physician Notes Resident Physician Supervision Note: I independently interviewed and examined the patient and verified the sherwood history and physical, reviewed labs and image studies, discussed the case with the resident Dr. Art and agree with the findings and care plan. Resident Activity Tracking Resident Involvement: Resident Care Provided Care Provided: Adult Hospital Medicine
[2020-09-04 07:06] LABS: Basophils # (auto) 0.06 K/uL (0-0.2); Basophils % (auto) 0.6 %; Eosinophils # (auto) 0.55 K/uL (0-0.5); Eosinophils % (auto) 5.3 %; Hematocrit (blood only) 29.8 % (42-52); Hemoglobin 9.3 g/dL (14.0-18.0); Immature Granulocytes # (auto) 0.02 K/uL (0.00-0.02); Immature Granulocytes % (auto) 0.2 %; Lymphocytes # (auto) 2.15 K/uL (1.2-3.4); Lymphocytes % (auto) 20.8 %; Mean Corpuscular Hemoglobin 27.9 pg (25-34); Mean Corpuscular Hgb Conc 31.2 g/dL (32-36); Mean Corpuscular Volume 89.5 fL (80-100); Mean Platelet Volume 12.4 fL (7.4-10.4); Monocytes # (auto) 1.19 K/uL (0.11-0.59); Monocytes % (auto) 11.5 %; Neutrophils # (auto) 6.36 K/uL (1.4-6.5); Neutrophils % (auto) 61.6 %; Platelet Count 196 K/uL (130-400); RDW Coefficient of Variation 15.7 % (11.5-14.5); RDW Standard Deviation 50.9 fL (36.4-46.3); Red Blood Count 3.33 M/uL (4.7-6.1); White Blood Count 10.33 K/uL (4.8-10.8)
[2020-09-04] MEDS: IPRATROPIUM BROMIDE HFA INHALER INH SCH ×2 (07:29→11:24)
[2020-09-04] MEDS: ALBUTEROL HFA 8 GM INHALER INH SCH ×2 (07:29→11:24)
[2020-09-04] MEDS: METOPROLOL TARTRATE 50 MG TAB PO SCH (08:26)
[2020-09-04] MEDS: ASPIRIN 81 MG ECTAB PO SCH (08:27)
[2020-09-04] MEDS: POLYETHYLENE (MIRALAX) 17 GM PACK PO SCH (08:27)
[2020-09-04] MEDS: FUROSEMIDE 40 MG TAB PO SCH (08:27)
[2020-09-04] MEDS: RANOLAZINE 500 MG ER TAB PO SCH (08:27)
[2020-09-04] MEDS: ROSUVASTATIN CALCIUM 20 MG TAB PO SCH (08:27)
[2020-09-04] MEDS: DOCUSATE SODIUM/SENNA 50/8.6MG TAB PO SCH (08:27)
[2020-09-04] MEDS: CITALOPRAM 20 MG TAB PO SCH (08:27)
[2020-09-04] MEDS: CLOPIDOGREL BISULFATE 75 MG TAB PO SCH (08:27)
[2020-09-04] MEDS: CHOLECALCIFEROL 400 UNITS 10 MCG TAB PO SCH (08:27)
--- NOTE | 2020-09-04 22:33 | Billing Data ---
Date of Service September 04, 2020 Coding Level of Care Code 56457 OBS Care - Level 3
== END 2020-09-04 14:38 | disposition home or self-care (01) ==
LOC: 2S 20:55 → ED 20:55 → SUATTDRO 23:57 → 2S 09-03 00:58

== ENCOUNTER 2020-12-06 16:15 | Observation (INO) ==
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
[2020-12-06 17:48] LABS: Basophils # (auto) 0.07 K/uL (0-0.2); Basophils % (auto) 0.7 %; Eosinophils # (auto) 0.51 K/uL (0-0.5); Eosinophils % (auto) 4.9 %; Hematocrit (blood only) 37.1 % (42-52); Hemoglobin 11.8 g/dL (14.0-18.0); Immature Granulocytes # (auto) 0.06 K/uL (0.00-0.02); Immature Granulocytes % (auto) 0.6 %; Lymphocytes # (auto) 2.11 K/uL (1.2-3.4); Lymphocytes % (auto) 20.4 %; Mean Corpuscular Hemoglobin 27.8 pg (25-34); Mean Corpuscular Hgb Conc 31.8 g/dL (32-36); Mean Corpuscular Volume 87.5 fL (80-100); Mean Platelet Volume 11.8 fL (7.4-10.4); Monocytes # (auto) 1.07 K/uL (0.11-0.59); Monocytes % (auto) 10.3 %; Neutrophils # (auto) 6.52 K/uL (1.4-6.5); Neutrophils % (auto) 63.1 %; Platelet Count 203 K/uL (130-400); RDW Standard Deviation 64.3 fL (36.4-46.3); Red Blood Count 4.24 M/uL (4.7-6.1); White Blood Count 10.34 K/uL (4.8-10.8)
[2020-12-06 17:57] LABS: Prothrombin Time 10.3 Seconds (9.0-12.0)
[2020-12-06 18:06] LABS: BUN Creatinine Ratio 15.3 (10-20); Blood Urea Nitrogen 26 mg/dl (7-18); Carbon Dioxide 26 mmol/L (21-32); Chloride 106 mmol/L (98-107); Est GFR (African American) 42.9 ml/min; Glucose 86 mg/dl (70-99); Potassium 4.1 mmol/L (3.5-5.1); Sodium 137 mmol/L (136-145)
[2020-12-06 18:15] LABS: Anisocytosis Present; Ovalocytes 1+; Poikilocytosis Present; Polychromasia 1+
--- NOTE | 2020-12-06 19:24 | Ultrasound Report ---
US venous doppler LE RT CLINICAL HISTORY: Right leg swelling COMPARISON STUDY: 02/04/2020 FINDINGS: Grayscale, color-flow, Doppler spectral waveform analysis was performed. There is acute appearing thrombus within the right common femoral vein, superficial femoral vein, pop liteal vein, posterior tibial vein, and peroneal vein. There is occlusive thrombus within the profund a vein. There is nonocclusive thrombus within the greater saphenous vein. IMPRESSION: Extensive acute right lower extremity DVT extending from the common femoral vein to the c fdc.. ACT 112: Negative or not required by law. Electronically signed by: Dakota Magdaleno M.D. 12/06/2020 7:23 PM
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
[2020-12-07] MEDS ORDERED: ONDANSETRON INJ 2 MG/ML 2 ML VIAL IV PRN (00:55)
[2020-12-07] MEDS ORDERED: ACETAMINOPHEN 325 MG TAB PO PRN (00:55)
[2020-12-07 01:56] LABS: Magnesium 2.3 mg/dl (1.8-2.4)
[2020-12-07] MEDS: APIXABAN 5 MG TABLET PO SCH ×2 (03:03→12:34)
[2020-12-07] MEDS: RANOLAZINE 500 MG ER TAB PO SCH ×2 (03:04→09:49)
[2020-12-07 07:54] LABS: Basophils # (auto) 0.05 K/uL (0-0.2); Basophils % (auto) 0.5 %; Eosinophils # (auto) 0.55 K/uL (0-0.5); Hematocrit (blood only) 34.2 % (42-52); Hemoglobin 10.6 g/dL (14.0-18.0); Immature Granulocytes # (auto) 0.03 K/uL (0.00-0.02); Immature Granulocytes % (auto) 0.3 %; Lymphocytes # (auto) 2.25 K/uL (1.2-3.4); Lymphocytes % (auto) 24.5 %; Mean Corpuscular Hemoglobin 27.2 pg (25-34); Mean Corpuscular Volume 87.9 fL (80-100); Mean Platelet Volume 11.7 fL (7.4-10.4); Monocytes # (auto) 1.17 K/uL (0.11-0.59); Monocytes % (auto) 12.7 %; Neutrophils # (auto) 5.14 K/uL (1.4-6.5); Platelet Count 202 K/uL (130-400); RDW Coefficient of Variation 20.1 % (11.5-14.5); RDW Standard Deviation 65.3 fL (36.4-46.3); Red Blood Count 3.89 M/uL (4.7-6.1); White Blood Count 9.19 K/uL (4.8-10.8)
[2020-12-07 08:18] LABS: BUN Creatinine Ratio 14.9 (10-20); Calcium 10.5 mg/dl (8.5-10.1); Creatinine Clr Calc Pharmacy 29.8 ml/min; Est GFR (African American) 39.7 ml/min; Est GFR (Non-African American) 34.3 ml/min; Potassium 3.9 mmol/L (3.5-5.1)
[2020-12-07 08:23] LABS: Anisocytosis Present; Poikilocytosis Present; Polychromasia 1+
[2020-12-07] MEDS ORDERED: METOPROLOL TARTRATE 50 MG TAB PO SCH (09:00)
[2020-12-07] MEDS ORDERED: IPRATROPIUM BROMIDE/ALBUTEROL respimat INH INH SCH (09:00)
[2020-12-07] MEDS ORDERED: CITALOPRAM 20 MG TAB PO SCH (09:00)
[2020-12-07] MEDS ORDERED: ROSUVASTATIN CALCIUM 20 MG TAB PO SCH (09:00)
[2020-12-07] MEDS ORDERED: POTASSIUM CHLORIDE 10 MEQ TABCR PO SCH (09:00)
[2020-12-07] MEDS ORDERED: CLOPIDOGREL BISULFATE 75 MG TAB PO SCH (09:00)
[2020-12-07] MEDS ORDERED: FUROSEMIDE 40 MG TAB PO SCH (09:00)
[2020-12-07] MEDS: Albuterol HFA 8 GM Inhaler (Combivent Respimat P&T Subs) INH SCH ×3 (10:31→14:27)
[2020-12-07] MEDS: Ipratropium HFA Inhaler (Combivent Respimat P&T Subs) INH SCH ×3 (10:31→14:27)
--- NOTE | 2020-12-07 14:53 | Discharge Summary ---
Date of Service December 07, 2020 Admission HPI Per Admitting Provider Kota Kennedy is an 80yo male presenting with RLE DVT. Patient with prior history of blood clots and completed a course of Eliquis anticoagulation which was discontinued several weeks ago. Patient has had worsening swelling of the RLE, found to have extensive RLE DVT. He denies pain, CP, SOB, cough, hemoptysis, dizziness or syncope No additional complaints at this time Patient ambulates without difficulty. Denies falls. Ho hematuria or easy bleeding/bruising. Has had blood in stools in the past but none recently. Reports poor appetite at baseline Admission Exam Per Admitting Provider General: patient resting comfortably, NAD, non-toxic in appearance, AA&O x 4 Skin: warm, dry, intact, no rashes or lesions HEENT: NC/AT, PERRL, EOMI, anicteric sclera, conjunctiva without injection, external ear normal to inspection and nontender, nares patent, moist mucus membranes, dentition intact, no oropharyngeal lesions, neck supple, trachea midline, no LAD, no thyromegaly, no JVD Heart: +S1/S2, regular, no m/r/g Lungs: equal air entry bilaterally, no rales/rhonchi/wheezes Abd: +BS, soft, NT/ND, no masses/organomegaly/ascites Ext: warm, RLE 3+ pitting edema, LLE with edema of foot, pulses dopplerable in bilateral feet Neuro: nonfocal, patient AA&O x 4, speech intact, no facial droop, moving all extremities on command with equal strength 5/5 Principal Diagnosis DVT Discharge Exam Constitutional WD/WN, vitals as above Respiratory normal respiratory effort, lungs clear to auscultation Cardiovascular Extremities: + pedal edema (Right pitting edema to thigh 2+) Gastrointestinal (Abdomen) normal bowel sounds, soft, nontender, no hepatosplenomegaly Discharge Data Allergies Allergy/AdvReac Type Severity Reaction Status Date / Time adhesive Allergy Intermediate rash, Verified 12/06/20 19:20 irritation Consultations 12/06/20 20:29 ED Decision to Admit Stat Ordered Studies 12/06/20 17:16 US venous doppler LE RT Stat IMPRESSION: Extensive acute right lower extremity DVT extending from the common femoral vein to the calf.. Hospital Course (1) DVT (deep venous thrombosis): Kota Blue is an 80 year old male observed overnight at [facility] from December 06-2020 due to right leg swelling. Ultrasound doppler showed extensive deep kraig thrombosis in this leg. Discussed with vascular surgery and recommended medical management with Eliquis. Significant risk factor of further thromboembolic disease is his continued smoking. He should continue on Eliquis indefinitely due to recurrent DVT. Recommend using compression stockings after 2 days of anticoagulation to help with the swelling. (2) Moderate obstructive sleep apnea: (3) Depression: (4) CAD (coronary artery disease): (5) COPD (chronic obstructive pulmonary disease): (6) Hypertension: (7) Hyperlipidemia: Total Time Total Time Spent Total Time Spent (In Minutes): 35 Total Time Includes: Examination of the Patient, Discharge Planning and Medication Reconciliation Discharge Plan Discharge Items Patient Disposition: Home - Home Health Services Reason For Visit: EXTENSIVE DVT RLE Discharge Diagnosis: Deep vein thombosis Activity: Resume your previous activity Non-emergency contact: Primary Care Provider Call non-emergency contact if: you have any medication questions and your symptoms worsen Follow-up/Referrals: Ernesto Page III, MD [Primary Care Provider] - 12/14/20 10:30 am Diet: Heart Healthy Addtl Attending Provider Instructions: You were observed overnight at [facility] from December 06-2020 due to right leg swelling. Ultrasound doppler showed extensive deep kraig thrombosis in this leg. Discussed with vascular surgery and recommended treating this with Eliquis. Highly recommend quitting smoking as this increases your risk of further clots. You should continue on apixaban (Eliquis) indefinitely. You can discontinue your aspirin while taking apixaban (Eliquis) but should remain on clopidogrel (Plavix). After 2 days of anticoagulation recommend using compression stockings to help with leg swelling. Kind regards, Dr John Villegas Pending Studies at Discharge: No Stand-Alone Forms: My [facility], Smoking Cessation Medications and DC Order Prescriptions: Continued rosuvastatin 20 mg tablet 20 mg PO DAILY Qty: 90 RF: 3 citalopram 20 mg tablet 20 mg PO QAM Qty: 30 RF: 11 clopidogrel 75 mg tablet 75 mg PO QAM Qty: 30 RF: 11 Hold Instructions: pt is on eliquis metoprolol tartrate [Lopressor] 50 mg tablet 50 mg PO BID Qty: 60 RF: 11 furosemide 20 mg tablet 40 mg PO BID Qty: 120 RF: 5 potassium chloride 10 mEq tablet extended release 10 meq PO DAILY Qty: 90 RF: 3 ranolazine 500 mg tablet extended release 12 hr 500 mg PO Q12H Qty: 180 RF: 3 Combivent Respimat 20-100 mcg/actuation mist 1 puff inhalation QID Qty: 4 RF: 5 (DME) BI-PAP/Supplies Misc See Rx Instructions .MEDSUPPLY Qty: 1 RF: 0 (DME) CPAP Machine Misc See Rx Instructions .MEDSUPPLY Qty: 1 RF: 0 cholecalciferol (vitamin D3) [Vitamin D3] 10 mcg (400 unit) tablet 400 units PO DAILY Qty: 30 RF: 0 nitroglycerin [Nitrostat] 0.4 mg tablet, sublingual 0.4 mg Sublingual Q5M PRN (Reason: Chest Pain) RF: 0 No Action Eliquis 5 mg (74 tabs) tablets,dose pack See Rx Instructions .ROUTE .COMPLEX Qty: 74 RF: 0 Discharge Orders: Discharge Order (Routine); Ordered 12/07/20 Ordered By: John Hinojosa/Other Patient Handouts: Compression Stockings Steps Admission Data Admit Date/Time: 12/06/20 22:20 Attending Provider: John Villegas Admit Provider: Mabel Art Primary Care Provider: Ernesto Page III Other Providers: Mabel Art Other Interventions: Discharge Summary Assessment (RN) Last Done: 12/07/20 16:24 Coding Level of Care Code D/C Day Management >30 mins Diagnoses DVT (deep venous thrombosis) I82.403 Affected thrombotic vein of extremity: unspecified vein of extremity Chronicity: acute DVT location: lower extremity Laterality: bilateral Moderate obstructive sleep apnea G47.33 Depression F32.9 Depression Type: unspecified CAD (coronary artery disease) I25.10 Associated angina: without angina Coronary Disease-Associated Artery/Lesion type: [place] artery [place] vs. transplanted heart: [place] heart COPD (chronic obstructive pulmonary disease) J44.9 COPD type: unspecified COPD Hypertension I10 Hypertension type: essential hypertension Hyperlipidemia E78.5 Hyperlipidemia type: unspecified
== END 2020-12-07 18:05 | disposition home health service (06) ==
LOC: ED 16:15 → INTOOBSV 22:20 → SUATTDRO 22:20 → 3W 22:20